=== PATIENT | male | born 1960 | race Caucasian/White ===

== ENCOUNTER 2021-04-18 11:19 | Inpatient (IN) | payer MEDICARE, OTHER ==
[2021-04-18] MEDS ORDERED: ASPIRIN 81 MG PO STA (11:52)
--- NOTE | 2021-04-18 12:16 | XR ---
EXAMINATION TYPE: XR chest 2V DATE OF EXAM: 04/18/2021 COMPARISON: NONE HISTORY: Chest pain for one week. TECHNIQUE: Frontal and lateral views of the chest are obtained. FINDINGS: There is no focal air space opacity, pleural effusion, or pneumothorax seen. The cardiac silhouette size is within normal limits. The osseous structures are intact. IMPRESSION: No acute cardiopulmonary process.
[2021-04-18 12:38] LABS: Basophils % (A) 1 %; Eosinophils # (A) 0.1 k/uL (0-0.7); Eosinophils % (A) 1 %; HCT 46.5 % (39.0-53.0); Lymphocytes # (A) 0.9 k/uL (1.0-4.8); Lymphocytes % (A) 14 %; MCH 30.8 pg (25.0-35.0); MCHC 34.4 g/dL (31.0-37.0); MCV 89.5 fL (80.0-100.0); Mean Platelet Volume 6.4; Monocytes # (A) 0.5 k/uL (0-1.0); Monocytes % (A) 8 %; Neutrophils # (A) 4.7 k/uL (1.3-7.7); Neutrophils % (A) 75 %; Platelet Count 248 k/uL (150-450); RDW 12.6 % (11.5-15.5); WBC 6.3 k/uL (3.8-10.6)
[2021-04-18 12:55] LABS: ALT 36 U/L (4-49); AST 42 U/L (17-59); African American GFR (CKD) >90 (>60 ml/min/1.73 sqM); Albumin 4.2 g/dL (3.5-5.0); Alkaline Phosphatase 84 U/L (38-126); Anion Gap 7 mmol/L; Blood Urea Nitrogen 18 mg/dL (9-20); Calcium 9.4 mg/dL (8.4-10.2); Carbon Dioxide 24 mmol/L (22-30); Chloride 106 mmol/L (98-107); Glucose 96 mg/dL (74-99); Magnesium 2.1 mg/dL (1.6-2.3); Non-African American GFR(CKD) 81 (>60 ml/min/1.73 sqM); Potassium 4.4 mmol/L (3.5-5.1); Sodium 137 mmol/L (137-145); Total Bilirubin 0.6 mg/dL (0.2-1.3); Total Protein 7.1 g/dL (6.3-8.2)
--- NOTE | 2021-04-18 13:00 | ED ---
Chest Pain HPI <Chirag James - Last Filed: 04/18/21 13:56> - General Source: patient Mode of arrival: wheelchair <Tasia Florez - Last Filed: 04/18/21 14:53> - General Chief Complaint: Chest Pain Stated Complaint: chest pain Time Seen by Provider: 04/18/21 11:46 - History of Present Illness Initial Comments: Patient is a 60-year-old male with history of osteoarthritis, presenting to the emergency Department with complaints of intermittent chest pain over the past week. He states that it seemed to happen when he was doing some sort of physical activity. He noticed it about one week ago when he was walking his new dog, started having some midsternal chest pressure and pain. It seemed to go away when he went home and rested. It's been happening throughout the week. Today he was playing golf, the first 8 holes he seemed to have increased in chest tightness and pressure again along with some mild shortness of breath so decided to come in for evaluation, and stopped golfing. He denies history of heart disease, does not take any medications. He had a stress test approximately 20 years ago which revealed no acute findings. He denies being a smoker, just occasional alcohol use, no other drug use. He states his father had a heart attack at the age of 60 but then in his 70s from cancer. Patient denies any chest pain at this time, no recent fevers or chills. He states he was tested for covert last week, he had 3 separate tests which were all negative. He denies any abdominal pain, no nausea or vomiting, no heartburn. He has no further complaints at this time. His vital signs are stable upon arrival. (Tasia Florez) - Related Data Home Medications Medication Instructions Recorded Confirmed Naproxen Sodium [Aleve] 220 mg PO BID PRN 04/18/21 04/18/21 Allergies Allergy/AdvReac Type Severity Reaction Status Date / Time No Known Allergies Allergy Verified 04/18/21 12:10 Review of Systems ROS Other: All systems not noted in ROS Statement are negative. <Chirag James - Last Filed: 04/18/21 13:56> ROS Other: All systems not noted in ROS Statement are negative. <Tasia Florez - Last Filed: 04/18/21 14:53> ROS Statement: Those systems with pertinent positive or pertinent negative responses have been documented in the HPI. EKG Findings - EKG Comments: EKG Findings:: Sinus rhythm with fusion complexes, nonspecific ST and T abnormalities, no signs of acute ST segment elevation, although questionable ST depression in leads V5 and V6. Ventricular rate 61, WI interval 134, QT 370. The only previous was from this morning at doctor's office, similar in nature. <Tasia Florez - Last Filed: 04/18/21 14:53> Past Medical History Past Medical History: Osteoarthritis (OA) History of Any Multi-Drug Resistant Organisms: None Reported Past Surgical History: Joint Replacement Additional Past Surgical History / Comment(s): TOTAL RIGHT AND LEFT HIP , GREAT TOE- BILATERAL Past Anesthesia/Blood Transfusion Reactions: No Reported Reaction Past Psychological History: No Psychological Hx Reported Smoking Status: Never smoker Past Alcohol Use History: Occasional Past Drug Use History: None Reported - Past Family History Father Family Medical History: Cancer Additional Family Medical History / Comment(s): LIVER CANCER <Tasia Florez - Last Filed: 04/18/21 14:53> General Exam General appearance: alert, in no apparent distress Respiratory exam: Present: normal lung sounds bilaterally Cardiovascular Exam: Present: regular rate, normal rhythm, normal heart sounds Expanded Peripheral pulses: 2+: Radial (R), Radial (L), Posterior Tibialis (R), Posterior Tibialis (L), Dorsalis Pedis (R), Dorsalis Pedis (L) <Chirag James - Last Filed: 04/18/21 13:56> <Tasia Florez - Last Filed: 04/18/21 14:53> - General Exam Comments Initial Comments: GENERAL: Patient is well-developed and well-nourished. Patient is nontoxic and in no acute distress. HEAD: Atraumatic, normocephalic. EYES: Pupils equal round and reactive to light, extraocular movements intact, sclera anicteric, conjunctiva are normal. Eyelids were unremarkable. ENT: TMs normal, nares patent, oropharynx clear without exudates. Moist mucous membranes. NECK: Normal range of motion, supple without lymphadenopathy or JVD. LUNGS: Unlabored respirations. Breath sounds clear to auscultation bilaterally and equal. No wheezes rales or rhonchi. HEART: Regular rate and rhythm without murmurs, rubs or gallops. ABDOMEN: Soft, nontender, normoactive bowel sounds. No guarding, no rebound. No masses appreciated. : Deferred MUSCULOSKELETAL: Normal extremities with adequate strength and normal range of motion, no pitting or edema. No clubbing or cyanosis. NEUROLOGICAL: Patient is alert and oriented x 3. Motor and sensory are also intact. Cranial nerves II through XII grossly intact. Symmetrical smile. Normal speech, normal gait. PSYCH: Normal mood, normal affect. SKIN: Warm, Dry, normal turgor, no rashes or lesions noted. (Tasia Florez) Course <Chirag James - Last Filed: 04/18/21 13:56> Vital Signs 04/18/21 04/18/21 11:22 12:25 Temperature 97.7 F Pulse Rate 65 63 Respiratory 18 16 Rate Blood Pressure 166/95 141/91 O2 Sat by Pulse 97 97 Oximetry - Reevaluation(s) Reevaluation #1: 04/18/21 13:57 Patient reevaluated and reexamined by myself, Dr. James. Patient resting comfortably in bed, no symptoms at this time. Patient has had mild symptoms of past couple of days, worse today. Patient has chest tightness with exertion. Questionable mild associated dyspnea. EKG with mild ST depression. Troponin mildly elevated. Patient updated on results and plan. Heparin will be started. Cardiology has been paged. (Chirag James) Chest Pain [facility] <Tasia Florez - Last Filed: 04/18/21 14:53> - [facility] Patient is a 60-year-old male presenting with intermittent exertional chest pain over the past week. He was golfing today, made it through 8 holes when he had to stop secondary to chest pain and some mild shortness of breath. His vital signs are stable here, EKG reveals no signs of acute ST segment elevation, although questionable ST depression in leads V5 and V6. No chest pain at this time. Labs are unremarkable except for an elevated troponin at 0.165. Rapid: It is negative. Chest x-ray showed no acute abnormality. Patient will be started on heparin for NSTEMI. I did speak with cardiology, Yoli, who is in agreement with this plan of care and will most likely see the patient in the morning. Patient accepted by Dr. Chapa. Patient is agreeable to this plan of care. Case discussed with Dr. James. (Tasia Florez) Critical Care Time Critical Care Time: Yes Total Critical Care Time: 35 (Chest pain with exertion over the past week, increased today, EKG reveals some mild ST segment depression in lateral leads, troponin is elevated 0.16. Patient will be admitted for an NSTEMI. The patient started on heparin.) <Tasia Florez - Last Filed: 04/18/21 14:53> Disposition <Chirag James - Last Filed: 04/18/21 13:56> Decision Date: 04/18/21 Decision Time: 14:11 <Tasia Florez - Last Filed: 04/18/21 14:53> Clinical Impression: Acute non-ST elevation myocardial infarction (NSTEMI) Disposition: ADMITTED IP TO THIS [facility] Condition: Stable Referrals: Mark Lobato MD [Primary Care Provider] - 1-2 days
[2021-04-18 13:05] LABS: INR 0.9 (<1.2); Prothrombin Time 9.9 sec (9.0-12.0)
[2021-04-18] MEDS ORDERED: HEPARIN SODIUM 1,000 UN/ML (10ML VL) IV ONE ×2 (13:34→19:22)
[2021-04-18] MEDS ORDERED: HEPARIN SODIUM 1,000 UN/ML (10ML VL) IV PRN (13:34)
[2021-04-18] MEDS: HEPARIN SOD,PORK IN 0.45% NACL 25,000 UNIT in 0.45% NACL 1 250ML.BAG IV SCH ×2 (14:01→23:06)
[2021-04-18] MEDS ORDERED: NITROGLYCERIN SL TABS 0.4 MG TAB SUBLINGUAL PRN (14:08)
--- NOTE | 2021-04-18 15:55 | P.HPIM ---
History of Present Illness H&P Date: 04/18/21 This is a 60-year-old male with no significant past medical history that presented to the emergency room with chest pain. Patient said that his pain started a week ago he was mostly exertional and intermittent. Today he was playing golf and noted increased tightness and pressure mostly in the middle of his chest. This was associated with some shortness of breath. No radiation or diaphoresis. Patient was concerned and came to the emergency room for further evaluation. In the ER, 12-lead EKG showed no acute ischemic changes. Initial troponin was elevated at 0.165. Patient denies any cardiac history. No known underlying hypertension or hyperlipidemia. Patient is usually fairly active. He is a nonsmoker. He will be admitted to the hospital for further management. Review of Systems Review of system: 14 points review of systems were obtained and were negative except to what were mentioned in the HPI. Past Medical History Past Medical History: Osteoarthritis (OA) History of Any Multi-Drug Resistant Organisms: None Reported Past Surgical History: Joint Replacement Additional Past Surgical History / Comment(s): TOTAL RIGHT AND LEFT HIP , GREAT TOE- BILATERAL Past Anesthesia/Blood Transfusion Reactions: No Reported Reaction Past Psychological History: No Psychological Hx Reported Smoking Status: Never smoker Past Alcohol Use History: Occasional Past Drug Use History: None Reported - Past Family History Father Family Medical History: Cancer Additional Family Medical History / Comment(s): LIVER CANCER Medications and Allergies Home Medications Medication Instructions Recorded Confirmed Type Naproxen Sodium [Aleve] 220 mg PO BID PRN 04/18/21 04/18/21 History Allergies Allergy/AdvReac Type Severity Reaction Status Date / Time No Known Allergies Allergy Verified 04/18/21 12:10 Physical Exam Vitals: Vital Signs Temp Pulse Resp BP Pulse Ox 04/18/21 12:25 63 16 141/91 97 04/18/21 11:22 97.7 F 65 18 166/95 97 Intake and Output 04/18/21 04/18/21 04/18/21 06:59 14:59 22:59 Other: Weight 90.718 kg General: The patient is awake and alert, in no distress Eye: there is normal conjunctiva bilaterally. Neck: The neck is supple, there is no JVD. Cardiovascular: Normal S1-S2, no S3-S4, no murmurs. Respiratory: Lungs clear to auscultation bilaterally Gastrointestinal: Abdomen is soft, nontender Musculoskeletal: There is no pedal edema. Neurological:. Speech is normal. Skin: Skin is warm and dry Results CBC & Chem 7: 04/18/21 12:17 04/18/21 12:17 Labs: Abnormal Lab Results - Last 24 Hours (Table) 04/18/21 04/18/21 Range/Units 12:17 12:17 Lymphocytes # 0.9 L (1.0-4.8) k/uL Troponin I 0.165 H* (0.000-0.034) ng/mL Assessment and Plan Assessment: 1. Non-ST elevation MT, given full dose aspirin and started on IV heparin drip. I would also start the patient on Lipitor 80 mg daily and metoprolol 25 mg twice a day. Cardiology consulted for further evaluation. Echocardiogram ordered. Continue telemetry monitoring and trend troponin. Will probably need a left heart cath in the morning. 2. Elevated blood pressure with no known history of hypertension, I started the patient on metoprolol. Continue to monitor blood pressure and adjust regimen as needed. 3. Diet-controlled hyperlipidemia, fasting lipid profile in the morning. Today, I reviewed his medication list and lab work results. I updated the patient about his current medical condition.
[2021-04-18] MEDS: ATORVASTATIN 80 MG TAB PO SCH (16:27)
[2021-04-18] MEDS: METOPROLOL TARTRATE 25 MG TAB PO SCH ×2 (16:28→22:14)
[2021-04-18] MEDS: NITROGLYCERIN OINT 1 INCH/GM PACKET TOPICAL SCH ×2 (17:44→23:11)
[2021-04-18] MEDS ORDERED: fentaNYL (PF) 50 MCG/ML 2 ML AMP ONE (18:45)
[2021-04-18] MEDS ORDERED: LIDOCAINE 1% INJ 10MG/ML (20 ML MDV) ONE (18:45)
[2021-04-18] MEDS ORDERED: HEPARIN SODIUM 1,000 UN/ML (10ML VL) ONE (18:45)
[2021-04-18] MEDS ORDERED: VERAPAMIL 2.5 MG/ML 2 ML AMP ONE (18:45)
[2021-04-18] MEDS ORDERED: SODIUM CHLORIDE 0.9% 1,000 ML IV ONE (19:06)
[2021-04-18] MEDS ORDERED: IV FLUID CONTINUATION 900 ML IV ONE (19:08)
--- NOTE | 2021-04-18 19:08 | P.CRDCN ---
History of Present Illness Consult date: 04/18/21 History of present illness: This is a 60-year-old gentleman with family history of ischemic heart disease who comes to the emergency room with complaints of recurrent exertional chest tightness for the last 3 to 4 days. Today he was playing golf and had more severe chest discomfort which he did not go away. Patient came to the emergency room. In the ER. EKG did not show any acute changes. His troponins showed a 10 suggestive of non-STEMI. Patient complaining of indigestion feeling in the epigastric and midsternal area. In view of increasing troponins on ongoing symptoms, patient is advised to have a cardiac cath for definitive diagnosis. No history of previous myocardial infarctions. Moist of hypertension, diabetes, may have borderline hypercholesterolemia. Further recommendations depend upon the findings on the cardiac cath. Patient is explained the risks and benefits of the procedure Review of Systems As per the chart Past Medical History Past Medical History: Osteoarthritis (OA) History of Any Multi-Drug Resistant Organisms: None Reported Past Surgical History: Joint Replacement Additional Past Surgical History / Comment(s): TOTAL RIGHT AND LEFT HIP , GREAT TOE- BILATERAL Past Anesthesia/Blood Transfusion Reactions: No Reported Reaction Additional Past Anesthesia/Blood Transfusion Reaction / Comment(s): NO REACTION WITH BLOOD TRANSFUSION Past Psychological History: No Psychological Hx Reported Smoking Status: Never smoker Past Alcohol Use History: Occasional Past Drug Use History: None Reported - Past Family History Father Family Medical History: Cancer Additional Family Medical History / Comment(s): LIVER CANCER Mother Family Medical History: Congestive Heart Failure (CHF) Additional Family Medical History / Comment(s): SCARLET FEVER-VALVE REPLACEMENT Medications and Allergies Home Medications Medication Instructions Recorded Confirmed Type Naproxen Sodium [Aleve] 220 mg PO BID PRN 04/18/21 04/18/21 History Allergies Allergy/AdvReac Type Severity Reaction Status Date / Time No Known Allergies Allergy Verified 04/18/21 12:10 Physical Exam Vitals: Vital Signs Temp Pulse Pulse Resp BP BP Pulse Ox 04/18/21 16:24 98.1 F 71 16 146/100 96 04/18/21 12:25 63 16 141/91 97 04/18/21 11:22 97.7 F 65 18 166/95 97 Intake and Output 04/18/21 04/18/21 04/18/21 06:59 14:59 22:59 Output Total 300 Balance -300 Output: Urine 300 Other: # Voids 1 Weight 90.718 kg GENERAL EXAM: Patient is alert and oriented and doesn't appear to be in any acute distress HEENT: Normocephalic. Normal reaction of pupils, equal size, normal range of extraocular motion. No erythema or exudates in the throat. NECK: No masses, no nuchal rigidity. CHEST: No chest wall deformity. LUNGS: Equal air entry with no crackles or wheeze. HEART: S1 and S2 normal with no audible mumurs or gallops. Regular rhythm, femorals equal on both sides.. ABDOMEN: No hepatosplenomegaly, normal bowel sounds, no guarding or rigidity. SKIN: No rashes CENTRAL NERVOUS SYSTEM: No focal deficits. EXTREMITIES: No cyanosis, clubbing or edema. Results 04/18/21 12:17 04/18/21 12:17 Cardiac Enzymes 04/18/21 04/18/21 04/18/21 Range/Units 12:17 12:17 15:25 AST 42 (17-59) U/L Troponin I 0.165 H* 0.759 H* (0.000-0.034) ng/mL 04/18/21 Range/Units 18:11 AST (17-59) U/L Troponin I 1.580 H* (0.000-0.034) ng/mL Coagulation 04/18/21 04/18/21 Range/Units 12:17 18:11 PT 9.9 (9.0-12.0) sec APTT 24.0 45.8 H (22.0-30.0) sec CBC 04/18/21 Range/Units 12:17 WBC 6.3 (3.8-10.6) k/uL RBC 5.20 (4.30-5.90) m/uL Hgb 16.0 (13.0-17.5) gm/dL Hct 46.5 (39.0-53.0) % Plt Count 248 (150-450) k/uL Comprehensive Metabolic Panel 04/18/21 Range/Units 12:17 Sodium 137 (137-145) mmol/L Potassium 4.4 (3.5-5.1) mmol/L Chloride 106 (98-107) mmol/L Carbon Dioxide 24 (22-30) mmol/L BUN 18 (9-20) mg/dL Creatinine 0.99 (0.66-1.25) mg/dL Glucose 96 (74-99) mg/dL Calcium 9.4 (8.4-10.2) mg/dL AST 42 (17-59) U/L ALT 36 (4-49) U/L Alkaline Phosphatase 84 (38-126) U/L Total Protein 7.1 (6.3-8.2) g/dL Albumin 4.2 (3.5-5.0) g/dL Current Medications Generic Name Dose Route Start Last Admin Trade Name Freq PRN Reason Stop Dose Admin Aspirin 325 mg 04/19/21 09:00 Aspirin 325 Mg Tab PO DAILY EDVIN Atorvastatin Calcium 80 mg 04/18/21 15:45 04/18/21 16:27 Atorvastatin 80 Mg Tab PO 80 mg DAILY EDVIN Administration Heparin Sodium (Porcine) 0 unit 04/18/21 13:34 Heparin Sodium 1,000 Un/Ml (10ml Vl) IV PER PROTOCOL PRN Low PTT Protocol Heparin Sodium/Sodium Chloride 250 mls @ 9.997 mls/hr 04/18/21 13:45 04/18/21 14:01 25,000 unit/ Sodium Chloride IV 11.02 units/kg/hr .Q24H EDVIN 9.997 mls/hr Administration Protocol 11.02 UNITS/KG/HR Metoprolol Tartrate 25 mg 04/18/21 15:45 04/18/21 16:28 Metoprolol Tartrate 25 Mg Tab PO 25 mg BID EDVIN Administration Nitroglycerin 0.4 mg 04/18/21 14:08 Nitroglycerin Sl Tabs 0.4 Mg Tab SUBLINGUAL Q5M PRN Chest Pain Nitroglycerin 1 inch 04/18/21 18:00 04/18/21 17:44 Nitroglycerin Oint 1 Inch/Gm Packet TOPICAL 1 inch Q6HR EDVIN Administration Intake and Output 04/18/21 04/18/21 04/18/21 06:59 14:59 22:59 Output Total 300 Balance -300 Output: Urine 300 Other: # Voids 1 Weight 90.718 kg Patient Weight 04/19/21 06:59 Weight 90.718 kg 04/18/21 12:17 04/18/21 12:17 EKG Interpretations (text) Sinus rhythm Assessment and Plan (1) Acute non-ST elevation myocardial infarction (NSTEMI) Current Visit: Yes Status: Acute Code(s): I21.4 - NON-ST ELEVATION (NSTEMI) MYOCARDIAL INFARCTION SNOMED Code(s): 783618855 Plan: Continue with beta blockers, nitrates, aspirin and heparin. Echocardiogram is already done. Proceed with cardiac catheterization for definitive diagnosis and further intervention as needed
[2021-04-18] MEDS: fentaNYL (PF) 50 MCG/ML 2 ML AMP IV ONE ×2 (19:10→19:23)
[2021-04-18] MEDS: MIDAZOLAM 2 MG/2 ML VIAL IV ONE ×2 (19:10→19:23)
[2021-04-18] MEDS ORDERED: LIDOCAINE 1% INJ 10MG/ML (20 ML MDV) SQ ONE (19:15)
[2021-04-18] MEDS ORDERED: VERAPAMIL SYRINGE (5 MG/10 ML) INTRAARTER ONE (19:20)
[2021-04-18] MEDS ORDERED: IOPAMIDOL-370 125ML BTL INJ ONE (19:44)
[2021-04-18] MEDS ORDERED: IOPAMIDOL-370 50ML BTL INJ ONE (19:44)
[2021-04-18] MEDS ORDERED: RX INFO: IV CONTRAST WAS GIVEN 1 EACH MISC MISCELLANE PRN (19:47)
--- NOTE | 2021-04-18 19:57 | P.CARDCATH ---
Date of Procedure: 04/18/21 Preoperative Diagnosis: Non-STEMI Postoperative Diagnosis: Critical lesion involving the right and a critical lesion involving the LAD Procedure(s) Performed: Left heart catheterization and left ventriculography Description of Procedure: HISTORY: 60-year-old gentleman with no significant history is admitted to the hospital with recurrent chest pain and positive troponins suggestive of non- STEMI. Patient was going symptoms of indigestion ongoing and he was advised to have a cardiac cath for definitive diagnosis. By the time patient came to the Lab. His symptoms have improved CONSENT:I have discussed the risks, benefits and alternative therapies for the above-mentioned procedure and for both sedation/analgesia as well as necessary blood product administration, if indicated, as they pertain to this patient. The patient has indicated understanding and acceptance of the risks and procedures discussed. PROCEDURE: Patient was brought to the lab in a fasting state. Patient was given some IV sedation. The right groin is infiltrated with lidocaine and right femoral artery was entered using Seldinger technique. A 6-[place] catheter was left in place and selective coronary arteriography and left ventriculography was performed. Patient tolerated the procedure well. Femoral angiogram was performed and Angio-Seal was applied for hemostasis. No immediate complications were noted and patient was transferred to [facility] in a stable condition Conscious Sedation: Versed 2mg Fentanyl 50 g Duration 30minutes HEMODYNAMICS: The aortic pressure is 130/70. Left ventricle end-diastolic pressure is about 15-18 SELECTIVE CORONARY ARTERIOGRAPHY: LEFT MAIN: Mild disease involving the left main which is normal length THE LEFT ANTERIOR DESCENDING CORONARY ARTERY: . This is a fairly caliber vessel giving rise good-sized diagonal branch. The proximal LAD has about 70% lesion. The mid LAD has areas of about 90% lesion 2. There is a good-sized diagonal arising from midportion of the LAD THE LEFT CIRCUMFLEX AND IS CORONARY ARTERY: This is a fair caliber vessel with about 30-40% lesion in the proximal portion. The distal portion is free of any significant occlusive disease. The intermediate coronary artery. This is a moderate in caliber with about 50-60% long lesion in the proximal portion THE RIGHT CORONARY ARTERY: . This is a good caliber vessel with about 95% stenosis in the midportion which seemed to be the culprit vessel LEFT VENTRICULOGRAPHY: . This revealed normal-sized cardiac silhouette with the minimal hypokinesis of the inferobasal segment FINAL IMPRESSION: . 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 The films were reviewed with Dr. Guevara who is on-call shipping and receiving material handler. Because of multiple lesion LAD straddling diagonal branch, it was felt that patient may be better served with bypass surgery to the LAD diagonal and the right. Surgical consult is requested PROGNOSIS: Guarded
[2021-04-18 20:13] LABS: Glucose,Whole Blood 94 mg/dL (75-99)
[2021-04-18] MEDS ORDERED: MELATONIN 5 MG TABLET PO PRN (20:55)
[2021-04-18] MEDS ORDERED: ACETAMINOPHEN TAB 325 MG TAB PO PRN (20:55)
[2021-04-18 23:06] LABS: Appearance,Urine Clear (Clear); Bilirubin,Urine Negative (Negative); Blood,Urine Negative (Negative); Color,Urine Light Yellow; Glucose,Urine (UA) Negative (Negative); Ketones,Urine Negative (Negative); Leukocyte Esterase,Urine Negative (Negative); Nitrite,Urine Negative (Negative); Protein,Urine Negative (Negative); Specific Gravity,Urine 1.039 (1.001-1.035); Urobilinogen,Urine <2.0 mg/dL (<2.0)
[2021-04-19 04:34] LABS: Basophils % (A) 1 %; Eosinophils # (A) 0.1 k/uL (0-0.7); Eosinophils % (A) 2 %; HCT 48.5 % (39.0-53.0); HGB 16.3 gm/dL (13.0-17.5); Lymphocytes # (A) 1.2 k/uL (1.0-4.8); Lymphocytes % (A) 23 %; MCH 31.1 pg (25.0-35.0); MCHC 33.6 g/dL (31.0-37.0); MCV 92.6 fL (80.0-100.0); Mean Platelet Volume 6.7; Monocytes # (A) 0.4 k/uL (0-1.0); Monocytes % (A) 8 %; Neutrophils # (A) 3.3 k/uL (1.3-7.7); Neutrophils % (A) 65 %; Platelet Count 221 k/uL (150-450); RBC 5.24 m/uL (4.30-5.90); RDW 12.9 % (11.5-15.5)
[2021-04-19 04:54] LABS: Partial Thromboplastin Time 34.3 sec (22.0-30.0); Prothrombin Time 10.5 sec (9.0-12.0)
[2021-04-19 04:59] LABS: ALT 31 U/L (4-49); AST 47 U/L (17-59); African American GFR (CKD) >90 (>60 ml/min/1.73 sqM); Albumin 3.7 g/dL (3.5-5.0); Alkaline Phosphatase 68 U/L (38-126); Anion Gap 6 mmol/L; Blood Urea Nitrogen 14 mg/dL (9-20); Carbon Dioxide 22 mmol/L (22-30); Chloride 108 mmol/L (98-107); Glucose 84 mg/dL (74-99); Magnesium 2.2 mg/dL (1.6-2.3); Non-African American GFR(CKD) >90 (>60 ml/min/1.73 sqM); Potassium 4.4 mmol/L (3.5-5.1); Sodium 136 mmol/L (137-145); Total Bilirubin 0.8 mg/dL (0.2-1.3); Total Protein 6.4 g/dL (6.3-8.2)
[2021-04-19] MEDS: NITROGLYCERIN OINT 1 INCH/GM PACKET TOPICAL SCH ×4 (05:12→22:16)
--- NOTE | 2021-04-19 08:48 | US ---
EXAMINATION TYPE: US carotid duplex BILAT DATE OF EXAM: 04/19/2021 COMPARISON: NONE CLINICAL HISTORY: Pre-Op Cardiac Surgery. no stroke history, pre cabg EXAM MEASUREMENTS: RIGHT: Peak Systolic Velocity (PSV) cm/sec ----- Right CCA: 66.8 ----- Right ICA: 67.7 ----- Right ECA: 47.1 ICA/CCA ratio: 1.0 RIGHT: End Diastole cm/sec ----- Right CCA: 19.7 ----- Right ICA: 25.8 ----- Right ECA: 6.8 LEFT: Peak Systolic Velocity (PSV) cm/sec ----- Left CCA: 74.6 ----- Left ICA: 57.1 ----- Left ECA: 46.3 ICA/CCA ratio: 0.8 LEFT: End Diastole cm/sec ----- Left CCA: 19.5 ----- Left ICA: 25.8 ----- Left ECA: 8.7 VERTEBRALS (direction of flow): Right Vertebral: Antegrade Left Vertebral: Antegrade Rhythm: Normal Heterogeneous plaque bilateral bulbs/ICA with no significant stenosis seen Grayscale, color Doppler, spectral Doppler imaging performed of the carotid arteries. Waveform analys is does not show significant stenosis of the internal carotid arteries. IMPRESSION: No hemodynamic significant stenosis of the proximal internal carotid arteries by Doppler criteria, an indirect measurement of carotid stenosis NASCET criteria was used in interpretation of this exam? Criteria for Assigning % of Stenosis / Diameter reduction (Estimation based on the indirect measurements of the internal carotid artery velocities (ICA PSV). 1. Normal (no stenosis)=ICA PSV < 125 cm/s: ratio < 2.0: ICA EDV<40 cm/s. 2. Less than 50% stenosis=ICA PSV < 125 cm/s: ratio < 2.0: ICA EDV<40 cm/s. 3. 50 to 69% stenosis=ICA PSV of 125 to 230 cm/s: ration 2.0 ? 4.0: ICA EDV 40-100 cm/s. 4. Greater than 70% stenosis to near occlusion= ICA PSV > 230 cm/s: ratio > 4.0: ICA EDV > 100 cm/s. 5. Near occlusion= ICA PSV velocities may be low or undetectable: variable ratio and ICA EDV. 6. Total occlusion=unable to detect flow.
[2021-04-19] MEDS ORDERED: ASPIRIN 325 MG TAB PO SCH (09:00)
[2021-04-19] MEDS ORDERED: ASPIRIN 81 MG PO SCH (09:00)
[2021-04-19 09:56] LABS: Chol/HDL Ratio 4.76; Cholesterol 176 mg/dL (0-200); LDL Cholesterol,Calculated 122.2 mg/dL (0.0-131.0)
[2021-04-19] MEDS: METOPROLOL TARTRATE 25 MG TAB PO SCH ×2 (10:11→21:26)
[2021-04-19] MEDS: ATORVASTATIN 80 MG TAB PO SCH (10:12)
[2021-04-19] MEDS: MUPIROCIN 2% OINT 22 GM TUBE NASAL SCH ×2 (10:41→21:27)
--- NOTE | 2021-04-19 11:01 | ECHOF ---
Referral Reason:chest pain MEASUREMENTS -------- HEIGHT: 182.9 cm WEIGHT: 90.7 kg BP: 141/91 RVIDd: 3.2 cm (< 3.3) IVSd: 1.3 cm (0.6 - 1.1) LVIDd: 4.6 cm (3.9 - 5.3) LVPWd: 1.2 cm (0.6 - 1.1) IVSs: 1.5 cm LVIDs: 2.9 cm LVPWs: 1.5 cm LAESV Index (A-L): 25.50 ml/m Ao Diam: 2.7 cm (2.0 - 3.7) AV Cusp: 2.0 cm (1.5 - 2.6) LA Diam: 4.2 cm (2.7 - 3.8) MV EXCURSION: 20.043 mm (> 18.000) MV EF SLOPE: 82 mm/s (70 - 150) EPSS: 0.7 cm MV E Bhupinder: 0.92 m/s MV DecT: 224 ms MV A Bhupinder: 1.08 m/s MV E/A Ratio: 0.86 RAP: 5.00 mmHg RVSP: 26.68 mmHg FINDINGS -------- Sinus rhythm. This was a technically adequate study. The left ventricular size is normal. There is mild concentric left ventricular hypertrophy. Overa ll left ventricular systolic function is normal with, an EF between 55 - 60 %. The diastolic fillin g pattern is normal for the age of the patient 12.94. The right ventricle is normal in size. Normal LA size by volume 22+/-6 ml/m2. The right atrial size is normal. Interatrial and interventricular septum intact. The aortic valve is trileaflet and appears structurally normal. There is no evidence of aortic regu rgitation. There is no evidence of aortic stenosis. Mild mitral regurgitation is present. Mild tricuspid regurgitation present. There is no evidence of pulmonary hypertension. The right v entricular systolic pressure, as measured by Doppler, is 26.68mmHg. Trace/mild (physiologic) pulmonic regurgitation. The aortic root size is normal. IVC Not well visulized. There is no pericardial effusion. CONCLUSIONS -------- 1. The left ventricular size is normal. 2. There is mild concentric left ventricular hypertrophy. 3. Overall left ventricular systolic function is normal with, an EF between 55 - 60 %. 4. The diastolic filling pattern is normal for the age of the patient 12.94 5. Mild mitral regurgitation is present. 6. Mild tricuspid regurgitation present. 7. Trace/mild (physiologic) pulmonic regurgitation. PURE PAK MACHINE OPERATOR: Sara Bedoya RDCS
--- NOTE | 2021-04-19 12:07 | P.PN ---
Subjective Progress Note Date: 04/19/21 No complaints today. Denies chest pain, palps. Denies dyspnea. Plan is for CABG on 04/20 Objective - Vital Signs Vital signs: Vital Signs Temp 98.1 F 04/19/21 10:00 Pulse 62 04/19/21 10:00 Resp 8 L 04/19/21 10:00 BP 136/91 04/19/21 10:00 Pulse Ox 95 04/19/21 10:00 Intake & Output 04/18/21 04/19/21 04/19/21 18:59 06:59 18:59 Intake Total 48.485 341.482 80 Output Total 300 950 300 Balance -251.515 -608.518 -220 Weight 90.718 kg 95.1 kg Intake: IV 280 80 .9 180 80 Intake, IV Titration 48.485 61.482 Amount Heparin Sod,Pork in 0.45% 48.485 61.482 NaCl 25,000 unit In 0.45 % NaCl 1 250ml.bag @ 11. 02 UNITS/KG/HR 9.997 mls/ hr IV .Q24H FOR[facility]LY [facility], 1928–1983 Rx#: [id number] Output: Urine 300 950 300 Other: Voiding Method Urinal Urinal # Voids 1 - Exam Gen: awake, alert HEENT: normocephalic, atraumatic, good hearing acuity, moist mucous membranes Resp: good air exchange, breathing comfortably with no accessory muscle use CVS: good distal perfusion x 4, GI: soft, NTTP, ND : no SPT, no CVAT, montoya catheter not present MSK: no pitting edema, no clubbing Neuro: non-focal, moving all extremities Psych: cooperative, euthymic mood - Labs CBC & Chem 7: 04/19/21 04:18 04/19/21 04:18 Labs: Abnormal Lab Results - Last 24 Hours (Table) 04/18/21 04/18/21 04/18/21 Range/Units 12:17 12:17 15:25 Lymphocytes # 0.9 L (1.0-4.8) k/uL APTT (22.0-30.0) sec Sodium (137-145) mmol/L Chloride (98-107) mmol/L Troponin I 0.165 H* 0.759 H* (0.000-0.034) ng/mL HDL Cholesterol (40.0-60.0) mg/dL Ur Specific [place] (1.001-1.035) 04/18/21 04/18/21 04/18/21 Range/Units 18:11 18:11 21:13 Lymphocytes # (1.0-4.8) k/uL APTT 45.8 H (22.0-30.0) sec Sodium (137-145) mmol/L Chloride (98-107) mmol/L Troponin I 1.580 H* (0.000-0.034) ng/mL HDL Cholesterol (40.0-60.0) mg/dL Ur Specific [place] 1.039 H (1.001-1.035) 04/19/21 04/19/21 04/19/21 Range/Units 04:18 04:18 07:16 Lymphocytes # (1.0-4.8) k/uL APTT 34.3 H (22.0-30.0) sec Sodium 136 L (137-145) mmol/L Chloride 108 H (98-107) mmol/L Troponin I 1.150 H* (0.000-0.034) ng/mL HDL Cholesterol 37.0 L (40.0-60.0) mg/dL Ur Specific [place] (1.001-1.035) Microbiology - Last 24 Hours (Table) 04/18/21 21:33 Nasal Screen MRSA/MSSA - Preliminary Nasal Swab Assessment and Plan Assessment: 1. Non-ST elevation NV, given full dose aspirin and started on IV heparin drip. Started on Lipitor 80 mg daily and metoprolol 25 mg twice a day. Cardiology consulted for further evaluation and pt is now s/p [facility] on 04/18 which showed mu ltivessel disease: 95% RCA prox lesion, mild LM disease, 70% prox LAD and 2 x 90% distal LAD, 40% LCx. Echocardiogram ordered, shows normal EF 55-60%, no WMA, mild MR/TR, no diastolic dysfunction. Continue telemetry monitoring and trend troponin. CT surgery consulted, scheduled for CABG on 04/20. 2. Elevated blood pressure with no known history of hypertension, started the patient on metoprolol. Continue to monitor blood pressure and adjust regimen as needed. 3. Diet-controlled hyperlipidemia, fasting lipid profile in the morning. Today, I reviewed his medication list and lab work results. I updated the patient about his current medical condition.
--- NOTE | 2021-04-19 12:07 | P.PN ---
Subjective This is a pleasant 60-year-old male with no significant past medical history other than his father had coronary artery disease in his 60s. The patient presented to the hospital last night with acute chest pain and was found to have a non-ST elevated myocardial infarction. Cardiac catheterization revealed critical 2 vessel disease involving the RCA and LAD which was deemed complicated with multiple lesions and straddling LAD and diagonal branches. Therefore he was recommended to be evaluated for bypass grafting. He is seen and examined resting comfortably lying flat in bed in no acute distress. He denies symptoms of chest discomfort, shortness of breath, dizziness or palpitations. He states at times he does feel a burning sensation in the epigastric region but is unsure if this is related to reflux or chest discomfort. He did refuse Nitropaste this morning as a cost a pretty significant headache. Blood pressure 136/91 heart rate 62 afebrile maintaining oxygen saturation on room air. Laboratory data reviewed, CBC unremarkable, sodium 136, potassium 4.4, creatinine 0.88, LDL 122, HDL 37 and TSH 3.55. Echocardiogram obtained revealed preserved LV systolic function with ejection fraction 55-60%, normal diastolic filling pattern, mild MR and mild TR. GENERAL: Well-appearing, well-nourished and in no acute distress. NECK: Supple without JVD or thyromegaly. LUNGS: Breath sounds clear to auscultation bilaterally. Respiration equal and unlabored. No wheezes, rales or rhonchi. HEART: Regular rate and rhythm without murmurs, rubs or gallops. S1 and S2 heard. EXTREMITIES: Normal range of motion, no edema. No clubbing or cyanosis. Peripheral pulses intact. ASSESSMENT NSTEMI Dyslipidemia Coronary artery disease PLAN Continue heparin infusion pending CT surgery's recommendations. Decrease aspirin to 81 mg daily. Encourage the use of an incentive spirometer. Further recommendations to follow based upon clinical course. Nurse Practitioner note has been reviewed, I agree with a documented findings and plan of care. Patient was seen and examined. Objective - Vital Signs Vital signs: Vital Signs Temp 98.3 F 04/19/21 04:00 Pulse 60 04/19/21 07:00 Resp 16 04/19/21 07:00 BP 114/78 04/19/21 07:00 Pulse Ox 97 04/19/21 07:00 Intake & Output 04/18/21 04/19/21 04/19/21 18:59 06:59 18:59 Intake Total 48.485 341.482 20 Output Total 300 950 0 Balance -251.515 -608.518 20 Weight 90.718 kg 95.1 kg Intake: IV 280 20 .9 180 20 Intake, IV Titration 48.485 61.482 Amount Heparin Sod,Pork in 0.45% 48.485 61.482 NaCl 25,000 unit In 0.45 % NaCl 1 250ml.bag @ 11. 02 UNITS/KG/HR 9.997 mls/ hr IV .Q24H ON LICENSE OF [facility] Rx#: [id number] Output: Urine 300 950 0 Other: Voiding Method Urinal # Voids 1 - Labs CBC & Chem 7: 04/19/21 04:18 04/19/21 04:18 Labs: Abnormal Lab Results - Last 24 Hours (Table) 04/18/21 04/18/21 04/18/21 Range/Units 12:17 12:17 15:25 Lymphocytes # 0.9 L (1.0-4.8) k/uL APTT (22.0-30.0) sec Sodium (137-145) mmol/L Chloride (98-107) mmol/L Troponin I 0.165 H* 0.759 H* (0.000-0.034) ng/mL Ur Specific [place] (1.001-1.035) 04/18/21 04/18/21 04/18/21 Range/Units 18:11 18:11 21:13 Lymphocytes # (1.0-4.8) k/uL APTT 45.8 H (22.0-30.0) sec Sodium (137-145) mmol/L Chloride (98-107) mmol/L Troponin I 1.580 H* (0.000-0.034) ng/mL Ur Specific [place] 1.039 H (1.001-1.035) 04/19/21 04/19/21 Range/Units 04:18 04:18 Lymphocytes # (1.0-4.8) k/uL APTT 34.3 H (22.0-30.0) sec Sodium 136 L (137-145) mmol/L Chloride 108 H (98-107) mmol/L Troponin I (0.000-0.034) ng/mL Ur Specific [place] (1.001-1.035) [facility] - Last 24 Hours (Table) 04/18/21 21:33 Nasal Screen MRSA/MSSA - Preliminary Nasal Swab
[2021-04-19] MEDS ORDERED: MD COMMUNICATION TO PHARMACY 1 EACH MISC PO ONE ×4 (13:45→13:48)
--- NOTE | 2021-04-19 14:52 | P.GSCN ---
History of Present Illness Consult date: 04/19/21 Reason for Consult: Symptomatic multivessel coronary artery disease, non-ST elevated myocardial infarction this admission. Evaluation for myocardial revascularization surgery. Requesting physician: Chi Hernandez History of present illness: This is a 60-year-old gentleman who follows with Dr. Mark Lobato on an outpatient basis for his primary care service. The patient reports that he has not seen his primary care doctor in a few years. His past medical history significant for untreated hyperlipidemia, chronic lower back pain, osteoarthritis with bilateral hip replacements, difficulty swallowing, early onset coronary artery disease with his grandmother having a myocardial infarction at age 60 and a remote history of atrial fibrillation. He is a lifetime nonsmoker. The patient presented to the emergency department here at [facility] yesterday 04/18/2021 as he developed some burning type chest pain while golfing. He denies any shortness of breath, diaphoresis, presyncope, syncope, fever, chills, nausea, vomiting, palpitations or orthopnea. The patient does report that he has been having these episodes of burning-type chest pain off and on for the last week or so. A 12-lead EKG was completed which showed no acute ischemic changes. He did have serial troponins which were positive and as high as 1.580. He also underwent a Coronavirus PCR test which showed not detected. The patient reports that he has been vaccinated for COVID-19 with 2 doses of the Pfizer vaccine. A transthoracic 2-D echocardiogram was completed which showed an overall left ventricular systolic function to be normal with an ejection fraction between 55 and 60%, no evidence of aortic valve regurgitation, mild mitral valve regurgitation, mild tricuspid valve regurgitation and trace to mild pulmonic valve regurgitation. Due to the patient's presenting symptoms and positive troponins a consult was placed to Dr. Hernandez from cardiology and subsequently the patient underwent a cardiac catheterization which demonstrated a 70% stenosis to his proximal left anterior descending coronary artery, a 90% stenosis to his mid left anterior descending coronary artery, a 30-40% stenosis to his proximal circumflex coronary artery, a 50-60% stenosis to his intermediate coronary artery and a 95% stenosis in the midportion of his right coronary artery. Also during heart catheterization a left ventriculography was completed which showed a normal size cardiac silhouette with minimal hypokinesis of the inferior basal segment. The findings on the heart catheterization was discussed with the patient and a consult was placed to Dr. Tammi Obregon from cardiothoracic surgery for further evaluation and treatment recommendations including myocardial revascularization surgery. Review of Systems A 14 point review of systems was completed and was negative except as mentioned in the HPI. Past Medical History Past Medical History: Atrial Fibrillation, Hyperlipidemia, Osteoarthritis (OA) Additional Past Medical History / Comment(s): Chronic lower back pain History of Any Multi-Drug Resistant Organisms: None Reported Past Surgical History: Joint Replacement Additional Past Surgical History / Comment(s): TOTAL RIGHT AND LEFT HIP , GREAT TOE- BILATERAL SURGERY, and vasectomy. Past Anesthesia/Blood Transfusion Reactions: No Reported Reaction Additional Past Anesthesia/Blood Transfusion Reaction / Comm: NO REACTION WITH BLOOD TRANSFUSION Past Psychological History: No Psychological Hx Reported Smoking Status: Never smoker Past Alcohol Use History: Occasional Past Drug Use History: None Reported - Past Family History Father Family Medical History: Cancer, Myocardial Infarction ([place]) Additional Family Medical History / Comment(s): LIVER CANCER Mother Family Medical History: Congestive Heart Failure (CHF), CVA/TIA Additional Family Medical History / Comment(s): Rheumatic fever-VALVE REPLACEMENT Medications and Allergies Home Medications Medication Instructions Recorded Confirmed Type Naproxen Sodium [Aleve] 220 mg PO BID PRN 04/18/21 04/18/21 History Allergies Allergy/AdvReac Type Severity Reaction Status Date / Time No Known Allergies Allergy Verified 04/18/21 12:10 Surgical - Exam Vital Signs Temp Pulse Resp BP Pulse Ox 97.7 F 65 18 166/95 97 04/18/21 11:22 04/18/21 11:22 04/18/21 11:22 04/18/21 11:22 04/18/21 11:22 - General well developed, well nourished, no distress, no pain, obese - Eyes PERRL, normal ocular movement, no pale, no icteric - ENT normal pinna, normal nares, normal mucosa, no hearing loss, decreased hearing - Neck Neck is supple, no lymphadenopathy. no masses, no bruits, trachea midline, no venous distension - Respiratory Lung sounds essentially clear throughout. Respirations are symmetrical and nonlabored. No wheezes, rhonchi or crackles. - Cardiovascular Regular rhythm and rate. S1 and S2 present, negative for S3, gallop or murmur. No edema present. Bedside telemetry showing normal sinus rhythm. - Abdomen Abdomen soft, nontender and nondistended. Active bowel sounds present all 4 abdominal quadrants. No guarding or rigidity. No organomegaly appreciated. - Genitourinary Deferred - Rectum Deferred - Integumentary no rash, no growths, no abnormal pigmentation - Neurologic Cranial nerves II through XII intact. No focal deficits. - Musculoskeletal normal gait, normal posture - Psychiatric oriented to time, oriented to person, oriented to place, speech is normal, memory intact Results - Labs 04/19/21 04:18 04/19/21 04:18 Abnormal Lab Results - Last 24 Hours (Table) 04/18/21 04/18/21 04/18/21 Range/Units 15:25 18:11 18:11 APTT 45.8 H (22.0-30.0) sec Sodium (137-145) mmol/L Chloride (98-107) mmol/L Troponin I 0.759 H* 1.580 H* (0.000-0.034) ng/mL HDL Cholesterol (40.0-60.0) mg/dL Ur Specific [place] (1.001-1.035) 04/18/21 04/19/21 04/19/21 Range/Units 21:13 04:18 04:18 APTT 34.3 H (22.0-30.0) sec Sodium 136 L (137-145) mmol/L Chloride 108 H (98-107) mmol/L Troponin I (0.000-0.034) ng/mL HDL Cholesterol 37.0 L (40.0-60.0) mg/dL Ur Specific [place] 1.039 H (1.001-1.035) 04/19/21 04/19/21 Range/Units 07:16 11:52 APTT 67.0 H (22.0-30.0) sec Sodium (137-145) mmol/L Chloride (98-107) mmol/L Troponin I 1.150 H* (0.000-0.034) ng/mL HDL Cholesterol (40.0-60.0) mg/dL Ur Specific [place] (1.001-1.035) Microbiology - Last 24 Hours (Table) 04/18/21 21:33 Nasal Screen MRSA/MSSA - Preliminary Nasal Swab Diabetes panel 04/19/21 Range/Units 04:18 Sodium 136 L (137-145) mmol/L Potassium 4.4 (3.5-5.1) mmol/L Chloride 108 H (98-107) mmol/L Carbon Dioxide 22 (22-30) mmol/L BUN 14 (9-20) mg/dL Creatinine 0.88 (0.66-1.25) mg/dL Glucose 84 (74-99) mg/dL Calcium 9.0 (8.4-10.2) mg/dL AST 47 (17-59) U/L ALT 31 (4-49) U/L Alkaline Phosphatase 68 (38-126) U/L Total Protein 6.4 (6.3-8.2) g/dL Albumin 3.7 (3.5-5.0) g/dL Triglycerides 84.0 (0.0-149.0) mg/dL HDL Cholesterol 37.0 L (40.0-60.0) mg/dL Thyroid panel 04/19/21 Range/Units 04:18 TSH 3.550 (0.465-4.680) mIU/L Calcium panel 04/19/21 Range/Units 04:18 Calcium 9.0 (8.4-10.2) mg/dL Albumin 3.7 (3.5-5.0) g/dL Pituitary panel 04/19/21 Range/Units 04:18 Sodium 136 L (137-145) mmol/L Potassium 4.4 (3.5-5.1) mmol/L Chloride 108 H (98-107) mmol/L Carbon Dioxide 22 (22-30) mmol/L BUN 14 (9-20) mg/dL Creatinine 0.88 (0.66-1.25) mg/dL Glucose 84 (74-99) mg/dL Calcium 9.0 (8.4-10.2) mg/dL TSH 3.550 (0.465-4.680) mIU/L Adrenal panel 04/19/21 Range/Units 04:18 Sodium 136 L (137-145) mmol/L Potassium 4.4 (3.5-5.1) mmol/L Chloride 108 H (98-107) mmol/L Carbon Dioxide 22 (22-30) mmol/L BUN 14 (9-20) mg/dL Creatinine 0.88 (0.66-1.25) mg/dL Glucose 84 (74-99) mg/dL Calcium 9.0 (8.4-10.2) mg/dL Total Bilirubin 0.8 (0.2-1.3) mg/dL AST 47 (17-59) U/L ALT 31 (4-49) U/L Alkaline Phosphatase 68 (38-126) U/L Total Protein 6.4 (6.3-8.2) g/dL Albumin 3.7 (3.5-5.0) g/dL - Imaging Chest x-ray: report reviewed, image reviewed EKG: image reviewed Additional studies: Carotid duplex study reviewed. Transthoracic 2-D echocardiogram and cardiac catheterization films were reviewed by Dr. Mitchell Biggs. Assessment and Plan Assessment: 1. Symptomatic multivessel coronary artery disease 2. Non-ST elevated myocardial infarction this admission 3. Hyperlipidemia 4. History of difficulty with swallowing 5. Osteoarthritis 6. Remote history of atrial fibrillation 7. Vaccinated for COVID-19 with Pfizer, recent COVID-19 PCR showed not detected 8. Family history of early onset coronary artery disease with his grandmother having a myocardial infarction at age 60 9. Lifetime nonsmoker, recent FEV1 showed a predicted value of 79% Plan: The patient was seen and examined at his bedside in the intensive care unit. He was also seen by Dr. Mitchell Biggs from cardiothoracic surgery. His chart and diagnostics were reviewed. Preoperative testing and preoperative teaching has been initiated. Dr. Mitchell Biggs discussed with the patient the findings on his cardiac catheterization and transthoracic 2-D echocardiogram films. Risks and benefits of myocardial revascularization surgery discussed with the patient, treatment options discussed with the patient. Knowing and understanding the risks the patient wishes to proceed with the surgical option. An STS risk score was calculated discussed with the patient. A 5 m walk test was completed with the patient which showed time 1: 2.90 seconds, time 2: 2.88 seconds and time 3: 2.97 seconds. The patient will be scheduled for myocardial revascularization surgery with left internal mammary artery, endoscopic harvesting of the left radial artery, endoscopic vein harvest, exclusion of the left atrial appendage and intraoperative transesophageal echocardiogram. The surgery will be performed by Dr. Tammi Obregon and is scheduled for Sunday04/20/2021. Continue optimize medical management with aspirin, statin and beta samantha. Medical management and other comorbidities per primary care service. Dr. Franklin from pulmonary medicine has been consulted for preoperative and postoperative pulmonary management. More recommendations to follow based on patient's clinical course. Thank you Dr. Hernandez for this consult and we will look forward to working with you in the care of this patient. Time with Patient: Greater than 30
[2021-04-19 15:03] LABS: Hemoglobin A1C 5.3 % (4.0-6.0)
[2021-04-19] MEDS: HEPARIN SOD,PORK IN 0.45% NACL 25,000 UNIT in 0.45% NACL 1 250ML.BAG IV SCH (16:23)
[2021-04-19 22:45] LABS: Hepatitis A Antibody IgM Non-Reactive (Non-Reactive); Hepatitis B Core IgM Non-Reactive (Non-Reactive); Hepatitis B Surface Antigen Non-Reactive (Non-Reactive); Hepatitis C IgG Antibody Non-Reactive (Non-Reactive)
[2021-04-20] MEDS ORDERED: MAGNESIUM SULFATE SYG 4.06 MEQ/ML SYRINGE IV ONE (05:00)
[2021-04-20] MEDS ORDERED: HEPARIN SODIUM,PORCINE 5,000 UNIT in SODIUM CHLORIDE 0.9% 500 ML 500 ML IV ONE (05:00)
[2021-04-20] MEDS ORDERED: ALBUMIN HUMAN 25% 50 ML in EMPTY BAG 1 BAG IVPB ONE (05:00)
[2021-04-20] MEDS ORDERED: ELECTROLYTE-A SOLUTION 1,000 ML with POTASSIUM CHLORIDE 40 MEQ, MAGNESIUM SULFATE 16 ME... IV SCH ×5 (05:00)
[2021-04-20] MEDS ORDERED: CLEVIDIPINE BUTYRATE 25 MG in EMPTY BAG 1 BAG IV SCH ×2 (05:00→16:24)
[2021-04-20] MEDS ORDERED: INSULIN REGULAR 100 UNIT in SODIUM CHLORIDE 0.9% 100 ML IV SCH ×2 (05:00→17:00)
[2021-04-20] MEDS ORDERED: PROTAMINE SULFATE 10 MG/ML 25 ML VIAL IV ONE (05:00)
[2021-04-20] MEDS ORDERED: PAPAVERINE 360 MG in SODIUM CHLORIDE 0.9% 90 ML IV ONE (05:00)
[2021-04-20] MEDS ORDERED: HEPARIN SODIUM 1,000 UN/ML (10ML VL) IV ONE (05:00)
[2021-04-20] MEDS ORDERED: MANNITOL 25% 12.5 GM/50 ML VIAL IV ONE ×2 (05:00)
[2021-04-20] MEDS ORDERED: CHLORHEXIDINE GLUCONATE 15 ML CUP MUCOUS MEM ONE (05:00)
[2021-04-20] MEDS ORDERED: ALBUMIN HUMAN 5% 500 ML in EMPTY BAG 1 BAG IVPB ONE ×6 (05:00)
[2021-04-20] MEDS ORDERED: METOPROLOL TARTRATE 12.5 MG TAB PO ONE (05:00)
[2021-04-20] MEDS ORDERED: PROTAMINE SULFATE 250 MG in EMPTY BAG 1 BAG IV ONE (05:00)
[2021-04-20] MEDS ORDERED: DILTIAZEM 125 MG in SODIUM CHLORIDE 0.9% 100 ML IV SCH (05:00)
[2021-04-20] MEDS ORDERED: ELECTROLYTE-A SOLUTION 1,000 ML with POTASSIUM CHLORIDE 100 MEQ, MAGNESIUM SULFATE 16 M... IV SCH ×5 (05:00)
[2021-04-20] MEDS ORDERED: PHENYLEPHRINE 40 MG in SODIUM CHLORIDE 0.9% 250 ML IV ONE (05:00)
[2021-04-20] MEDS ORDERED: TRANEXAMIC ACID 2,000 MG in SODIUM CHLORIDE 0.9% 80 ML IV ONE (05:00)
[2021-04-20] MEDS ORDERED: NOREPINEPHRINE 4 MG in SODIUM CHLORIDE 0.9% 250 ML IV SCH (05:00)
[2021-04-20] MEDS ORDERED: ASPIRIN 81 MG PO ONE (05:00)
[2021-04-20] MEDS ORDERED: NITROGLYCERIN-D5W PMX 25 MG/250 ML BTL IV ONE (05:00)
[2021-04-20] MEDS ORDERED: PHENYLEPHRINE 10 MG/ML VIAL IV ONE (05:00)
[2021-04-20] MEDS ORDERED: SODIUM BICARB 8.4% 50 ML SYR (1 MEQ/ML) IV ONE (05:00)
[2021-04-20] MEDS ORDERED: CALCIUM CHLORIDE 100 MG/ML 10 ML SYRINGE IVP ONE (05:00)
[2021-04-20] MEDS ORDERED: NITROGLYCERIN-D5W PMX 50 MG in DEXTROSE/WATER 1 250ML.BAG IV SCH ×2 (05:00→17:00)
[2021-04-20] MEDS ORDERED: ATORVASTATIN 10 MG TAB PO ONE (05:00)
[2021-04-20 08:29] LABS: ABG HCO3 28 mmol/L (21-25); ABG PCO2 49 mmHg (35-45); ABG PH 7.36 (7.35-7.45); ABG PO2 105 mmHg (83-108); ABG TCO2 29 mmol/L (19-24)
[2021-04-20] MEDS ORDERED: HEPARIN SODIUM,PORCINE 10,000 UNIT/ML 1 ML VIAL ONE (08:40)
[2021-04-20] MEDS ORDERED: LIDOCAINE 2% SYG (PF) 100 MG/5 ML ONE (08:40)
[2021-04-20] MEDS ORDERED: TRANEXAMIC ACID 1,000 MG/10 ML VIAL ONE (08:40)
[2021-04-20] MEDS ORDERED: NITROGLYCERIN-D5W PMX 50 MG/250 ML BOTTLE IV ONE (08:40)
[2021-04-20] MEDS ORDERED: PHENYLEPHRINE-0.9% NACL SYG 1,000 MCG/10 ML SYRINGE ONE (08:40)
[2021-04-20] MEDS ORDERED: GLYCOPYRROLATE 0.2 MG/ML 2 ML VIAL ONE (08:40)
[2021-04-20] MEDS ORDERED: SODIUM CHLORIDE 0.9% 250 ML BAG ONE (08:40)
[2021-04-20] MEDS ORDERED: MIDAZOLAM 2 MG/2 ML VIAL ONE (08:40)
[2021-04-20] MEDS ORDERED: fentaNYL (PF) 50 MCG/ML 50 ML VIAL ONE (08:40)
[2021-04-20] MEDS ORDERED: PROPOFOL 10 MG/ML 20 ML VIAL IV ONE (08:40)
[2021-04-20] MEDS ORDERED: ELECTROLYTE-R (PH 7.4) 1,000 ML IV.SOLN IV ONE (08:40)
[2021-04-20] MEDS ORDERED: VECURONIUM 10 MG VIAL IV ONE (08:40)
[2021-04-20] MEDS ORDERED: SUCCINYLCHOLINE CHLORIDE 100 MG/5 ML SYR IV ONE (08:40)
[2021-04-20] MEDS ORDERED: ePHEDrine SULFATE/0.9% NACL/PF 50 MG/5 ML SYRINGE IV ONE (08:40)
[2021-04-20] MEDS ORDERED: MAGNESIUM SULFATE 4 MEQ/ML 10ML VIAL ONE (08:40)
[2021-04-20 09:23] LABS: ABG Base Excess 0.8 mmol/L; ABG Glucose Whole Blood 96 mg/dL (75-99); ABG HCO3 26 mmol/L (21-25); ABG Hematocrit 50 % (34.0-46.0); ABG Ionized Calcium 4.8 mg/dL (4.5-5.3); ABG PCO2 42 mmHg (35-45); ABG PO2 277 mmHg (83-108); ABG Potassium Whole Blood 4.6 mmol/L (3.4-4.5); ABG Sodium Whole Blood 140 mmol/L (135-146); ABG TCO2 27 mmol/L (19-24)
[2021-04-20] MEDS: ceFAZolin 1,000 MG in SODIUM CHLORIDE 0.9% IRRIGATIO 1,000 ML IRRIGATION ONE ×2 (10:36→15:42)
[2021-04-20 11:34] LABS: ABG Base Excess -0.5 mmol/L; ABG Glucose Whole Blood 112 mg/dL (75-99); ABG HCO3 25 mmol/L (21-25); ABG Hematocrit 45 % (34.0-46.0); ABG Ionized Calcium 4.8 mg/dL (4.5-5.3); ABG Lactic Acid Whole Blood 1.1 mmol/L (0.5-1.6); ABG Oxygen Saturation 99.3 % (94-97); ABG PCO2 42 mmHg (35-45); ABG PH 7.38 (7.35-7.45); ABG PO2 137 mmHg (83-108); ABG Potassium Whole Blood 4.2 mmol/L (3.4-4.5); ABG Sodium Whole Blood 139 mmol/L (135-146); ABG TCO2 26 mmol/L (19-24)
[2021-04-20 12:50] LABS: ABG Base Excess -1.7 mmol/L; ABG Glucose Whole Blood 110 mg/dL (75-99); ABG HCO3 24 mmol/L (21-25); ABG Hematocrit 36 % (34.0-46.0); ABG Ionized Calcium 4.1 mg/dL (4.5-5.3); ABG Lactic Acid Whole Blood 1.4 mmol/L (0.5-1.6); ABG PCO2 44 mmHg (35-45); ABG PH 7.35 (7.35-7.45); ABG Potassium Whole Blood 4.2 mmol/L (3.4-4.5); ABG Sodium Whole Blood 135 mmol/L (135-146); ABG TCO2 25 mmol/L (19-24)
[2021-04-20 13:26] LABS: ABG Base Excess -0.4 mmol/L; ABG Glucose Whole Blood 110 mg/dL (75-99); ABG HCO3 24 mmol/L (21-25); ABG Hematocrit 35 % (34.0-46.0); ABG Ionized Calcium 4.1 mg/dL (4.5-5.3); ABG Lactic Acid Whole Blood 1.6 mmol/L (0.5-1.6); ABG PCO2 37 mmHg (35-45); ABG PH 7.42 (7.35-7.45); ABG PO2 297 mmHg (83-108); ABG Potassium Whole Blood 5.2 mmol/L (3.4-4.5); ABG Sodium Whole Blood 137 mmol/L (135-146); ABG TCO2 25 mmol/L (19-24)
[2021-04-20 14:06] LABS: ABG Base Excess 0.1 mmol/L; ABG Glucose Whole Blood 111 mg/dL (75-99); ABG HCO3 25 mmol/L (21-25); ABG Hematocrit 33 % (34.0-46.0); ABG Ionized Calcium 4.1 mg/dL (4.5-5.3); ABG Lactic Acid Whole Blood 1.6 mmol/L (0.5-1.6); ABG PCO2 38 mmHg (35-45); ABG PH 7.42 (7.35-7.45); ABG PO2 418 mmHg (83-108); ABG Potassium Whole Blood 5.2 mmol/L (3.4-4.5); ABG Sodium Whole Blood 138 mmol/L (135-146); ABG TCO2 26 mmol/L (19-24)
[2021-04-20 14:40] LABS: ABG Glucose Whole Blood 113 mg/dL (75-99); ABG HCO3 25 mmol/L (21-25); ABG Hematocrit 35 % (34.0-46.0); ABG Ionized Calcium 4.1 mg/dL (4.5-5.3); ABG Lactic Acid Whole Blood 1.6 mmol/L (0.5-1.6); ABG PCO2 43 mmHg (35-45); ABG PH 7.38 (7.35-7.45); ABG PO2 319 mmHg (83-108); ABG Potassium Whole Blood 5.1 mmol/L (3.4-4.5); ABG Sodium Whole Blood 138 mmol/L (135-146); ABG TCO2 27 mmol/L (19-24)
[2021-04-20] MEDS ORDERED: ALBUMIN HUMAN 5% 250 ML IVPB ONE ×2 (15:25→16:12)
[2021-04-20 16:00] LABS: ABG Base Excess -0.9 mmol/L; ABG Glucose Whole Blood 109 mg/dL (75-99); ABG HCO3 24 mmol/L (21-25); ABG Hematocrit 32 % (34.0-46.0); ABG Ionized Calcium 4.2 mg/dL (4.5-5.3); ABG Lactic Acid Whole Blood 1.7 mmol/L (0.5-1.6); ABG Oxygen Saturation 98.6 % (94-97); ABG PCO2 41 mmHg (35-45); ABG PH 7.38 (7.35-7.45); ABG PO2 106 mmHg (83-108); ABG Potassium Whole Blood 3.9 mmol/L (3.4-4.5); ABG Sodium Whole Blood 140 mmol/L (135-146); ABG TCO2 26 mmol/L (19-24)
[2021-04-20 16:10] LABS: ABG PO2 >420 mmHg (83-108)
[2021-04-20] MEDS ORDERED: IPRATROPIUM-ALBUTEROL 3 ML NEB INHALATION PRN (16:24)
[2021-04-20] MEDS ORDERED: AMIODARONE 450 MG in DEXTROSE 5% IN WATER 250 ML IV PRN ×2 (16:24)
[2021-04-20] MEDS ORDERED: ALBUMIN HUMAN 5% 250 ML in EMPTY BAG 1 BAG IVPB PRN (16:24)
[2021-04-20] MEDS ORDERED: Phosphorus Replacement Protoco 1 EACH MISC MISCELLANE PRN (16:24)
[2021-04-20] MEDS ORDERED: METOCLOPRAMIDE 5 MG/ML 2 ML VIAL IVP PRN (16:24)
[2021-04-20] MEDS ORDERED: Magnesium Replacement Protocol 1 EACH MISC MISCELLANE PRN (16:24)
[2021-04-20] MEDS ORDERED: BENZOCAINE/MENTHOL LOZENG 1 EACH LOZENGE MUCOUS MEM PRN (16:24)
[2021-04-20] MEDS ORDERED: AMIODARONE 360 MG in DEXTROSE 5% IN WATER 200 ML IV PRN ×2 (16:24)
[2021-04-20] MEDS ORDERED: ONDANSETRON 4 MG/2 ML VIAL IVP PRN (16:24)
[2021-04-20] MEDS ORDERED: hydrALAZINE HCL 20 MG/ML 1 ML VIAL IVP PRN (16:24)
[2021-04-20] MEDS ORDERED: Potassium Replacement Protocol 1 EACH MISC MISCELLANE PRN (16:24)
[2021-04-20 16:41] LABS: Glucose,Whole Blood 110 mg/dL (75-99)
[2021-04-20 16:48] LABS: ABG Base Excess 1.5 mmol/L; ABG HCO3 26 mmol/L (21-25); ABG PCO2 44 mmHg (35-45); ABG PH 7.39 (7.35-7.45); ABG PO2 97 mmHg (83-108); ABG TCO2 28 mmol/L (19-24)
[2021-04-20] MEDS: SODIUM CHLORIDE 0.9% 1,000 ML IV SCH (16:53)
[2021-04-20] MEDS ORDERED: DEXMEDETOMIDINE/0.9% NACL(PMX) 400 MCG in EMPTY BAG 1 BAG IV SCH (17:00)
--- NOTE | 2021-04-20 17:08 | XR ---
EXAMINATION TYPE: XR chest 1V portable DATE OF EXAM: 04/20/2021 COMPARISON: 04/18/2021 HISTORY: Chest pain postop cardiac surgery. TECHNIQUE: 2 views FINDINGS: There is right jugular catheter with tip in the right pulmonary artery. Endotracheal tube i s 3 cm from the rosario. There is some apparent drainage tubing over the base of the heart. There is p ulmonary vascular mild congestion. There is left side chest tube. There are sternal wires. IMPRESSION: There is some mild atelectasis at the lung bases. No pneumothorax.
[2021-04-20 17:11] LABS: Glucose,Whole Blood 107 mg/dL (75-99)
[2021-04-20 17:11] LABS: Ionized Calcium 5.2 mg/dL (4.5-5.3)
[2021-04-20 17:17] LABS: Basophils % (A) 0 %; Eosinophils # (A) 0.1 k/uL (0-0.7); Eosinophils % (A) 1 %; HCT 33.6 % (39.0-53.0); Lymphocytes # (A) 0.8 k/uL (1.0-4.8); Lymphocytes % (A) 10 %; MCH 31.9 pg (25.0-35.0); MCHC 36.3 g/dL (31.0-37.0); Mean Platelet Volume 6.9; Monocytes # (A) 0.4 k/uL (0-1.0); Monocytes % (A) 5 %; Neutrophils # (A) 6.8 k/uL (1.3-7.7); Neutrophils % (A) 83 %; Platelet Count 159 k/uL (150-450); RBC 3.82 m/uL (4.30-5.90); RDW 13.2 % (11.5-15.5); WBC 8.2 k/uL (3.8-10.6)
[2021-04-20 17:20] LABS: ALT 18 U/L (4-49); AST 50 U/L (17-59); African American GFR (CKD) >90 (>60 ml/min/1.73 sqM); Albumin 2.6 g/dL (3.5-5.0); Alkaline Phosphatase 46 U/L (38-126); Anion Gap 4 mmol/L; Blood Urea Nitrogen 14 mg/dL (9-20); Calcium 8.3 mg/dL (8.4-10.2); Carbon Dioxide 25 mmol/L (22-30); Chloride 108 mmol/L (98-107); Glucose 106 mg/dL (74-99); INR 1.1 (<1.2); Magnesium 2.6 mg/dL (1.6-2.3); Non-African American GFR(CKD) >90 (>60 ml/min/1.73 sqM); Partial Thromboplastin Time 41.2 sec (22.0-30.0); Prothrombin Time 11.4 sec (9.0-12.0); Sodium 137 mmol/L (137-145); Total Bilirubin 0.7 mg/dL (0.2-1.3); Total Protein 4.6 g/dL (6.3-8.2)
[2021-04-20 17:27] LABS: HGB 12.2 gm/dL (13.0-17.5)
[2021-04-20] MEDS: ACETAMINOPHEN IV (For NPO) 1,000 MG in EMPTY BAG 1 BAG IVPB SCH ×2 (17:47→23:55)
--- NOTE | 2021-04-20 17:52 | P.PN ---
Progress Note - Text Progress Note Date: 04/20/21 attempted to see patient 3 times and in surgery. Discussed with cardiothorasic surgery and will re-eval patient tomorrow
[2021-04-20] MEDS ORDERED: KETOROLAC 15 MG/ML 1 ML VIAL IVP SCH (18:00)
[2021-04-20 18:17] LABS: Glucose,Whole Blood 119 mg/dL (75-99)
[2021-04-20 19:11] LABS: Glucose,Whole Blood 149 mg/dL (75-99)
[2021-04-20 19:40] LABS: Basophils % (A) 0 %; Eosinophils % (A) 0 %; HCT 37.6 % (39.0-53.0); Lymphocytes # (A) 0.5 k/uL (1.0-4.8); Lymphocytes % (A) 5 %; MCH 31.4 pg (25.0-35.0); MCHC 34.7 g/dL (31.0-37.0); MCV 90.4 fL (80.0-100.0); Mean Platelet Volume 7.5; Monocytes # (A) 0.8 k/uL (0-1.0); Monocytes % (A) 8 %; Neutrophils # (A) 8.8 k/uL (1.3-7.7); Neutrophils % (A) 86 %; Platelet Count 176 k/uL (150-450); RBC 4.16 m/uL (4.30-5.90); RDW 12.8 % (11.5-15.5); WBC 10.3 k/uL (3.8-10.6)
[2021-04-20] MEDS ORDERED: IPRATROPIUM-ALBUTEROL 3 ML NEB INHALATION SCH (20:00)
[2021-04-20 20:02] LABS: ABG Base Excess -0.9 mmol/L; ABG HCO3 24 mmol/L (21-25); ABG Oxygen Saturation 98.3 % (94-97); ABG PCO2 40 mmHg (35-45); ABG PH 7.39 (7.35-7.45); ABG PO2 108 mmHg (83-108); ABG TCO2 25 mmol/L (19-24); Allen Test Performed? Yes
[2021-04-20 20:07] LABS: African American GFR (CKD) >90 (>60 ml/min/1.73 sqM); Blood Urea Nitrogen 13 mg/dL (9-20); Calcium 8.2 mg/dL (8.4-10.2); Glucose 154 mg/dL (74-99); Non-African American GFR(CKD) >90 (>60 ml/min/1.73 sqM); Potassium 3.8 mmol/L (3.5-5.1); Sodium 136 mmol/L (137-145)
--- NOTE | 2021-04-20 20:09 | OP ---
OPERATIVE REPORT DATE OF THE SURGERY: 04/20/2021. SURGEON: Dr. Tammi Obregon. ASSISTANTS: 1. WILTON Zhou. 2. KAMILAH Newell. PREOPERATIVE DIAGNOSIS: 1. Triple-vessel coronary artery disease with nju-DK-irmymgrrt myocardial infarction. 2. Hyperlipidemia. 3. Strong family history of coronary artery disease. POSTOPERATIVE DIAGNOSIS: 1. Triple-vessel coronary artery disease with juu-EU-rxejhwzgs myocardial infarction. 2. Hyperlipidemia. 3. Strong family history of coronary artery disease. PROCEDURE: 1. Quintuple multiple arterial coronary artery bypass grafting using the left internal mammary artery sequentially to the diagonal artery, then to the left anterior descending artery, the left radial artery from the aorta sequentially to the first obtuse marginal artery, then to the second obtuse marginal artery, reverse saphenous vein graft from the aorta to the right coronary artery. 2. Exclusion of the left atrial appendage using a 35 mm AtriClip. 3. Endoscopic harvesting of the left radial artery. 4. Endoscopic harvesting of the right greater saphenous vein. 5. Intraoperative transesophageal echocardiogram and epiaortic scanning. 6. Intraoperative graft flow measurements using the Quosisstim system. INDICATION FOR SURGERY: Patient is a 60-year-old gentleman who presented with a history of around 3 days of stuttering chest pain and was ruled in for twq-FX-ckojnvlzy myocardial infarction. Cardiac catheterization showed diffuse coronary artery disease. The patient is taken today for urgent coronary artery bypass grafting. Will plan to use multiple arterial conduits in view of his age. The STS risk was discussed with him. He understood it and agreed to proceed. DESCRIPTION OF THE PROCEDURE: With the patient in supine position, right internal jugular [place] catheter and a right radial arterial line were placed in the preoperative holding area. The patient had normal PA pressure and good cardiac index. Subsequently he was brought to the operating room, where general endotracheal anesthesia was induced uneventfully. Casper catheter was inserted. He received 2 grams of cefazolin intravenously. The chest, abdomen, both lower extremities and the left upper extremity were prepped and draped using ChloraPrep. Ioban was used to cover the skin. Transesophageal echocardiogram confirmed the preoperative finding of preserved left ventricular function and no significant valvular abnormalities. Midline sternotomy was performed and no bone wax was used. There was a breach in the right pleura which was drained with a 19-Indian Elio drain. The left hemisternum was elevated and the left internal mammary artery was harvested in a somewhat skeletonized fashion. The left pleura was intentionally opened in this process and was drained with a 19-Indian Elio drain. The patient was given 5000 units of heparin and the mammary artery was clipped distally before its bifurcation and transected. It had an excellent pulsatile flow in it and was around 2 mm in diameter. In the same setting, the left radial artery was exposed at the wrist and a clamping trial revealed preserved signal in the left index O2 saturation probe. It was harvested endoscopically subsequently without using a tourniquet. The forearm incision was closed over a drain. The radial artery was prepared by incising the fascia all along its volar aspect and clipping all its branches. It was of excellent quality, around 3 mm in diameter. The right greater saphenous vein was harvested endoscopically from groin to above ankle level. That vein was mostly thinned out and enlarged, of fair quality. Leg incisions were closed over a drain. Standard Crocker retractor was used. Mediastinal fat was transected between 2 ties and epiaortic scanning revealed some concentric intimal thickening of the ascending aorta, but no protruding atheroma. The pericardium was opened in an inverted T-fashion and a pericardial cradle was created. Findings included a normal soft aorta and a normal-sized heart with some visible and palpable coronary artery disease that was diffuse in nature and mainly in the proximal aspect of the coronary vessels. After systemic heparinization and after placement of respective pledgeted pursestrings, aortic cannulation with a 21-Indian Soft flow cannula and venous cannulation via the right atrial appendage with a 3-stage 29-Indian cannula were performed. Antegrade as well as retrograde cardioplegia catheters were placed. Cardiopulmonary bypass was initiated and patient's temperature was allowed to drift down to 34 degrees Celsius. With the heart empty and beating, we looked at the target. At the diagonal artery, the left anterior descending artery, the first and the second obtuse marginal arteries as well as the right coronary artery per se would be the site for bypass. Aorta was clamped, and during aortic clamping myocardial protection was achieved with an initial dose of antegrade cold blood cardioplegia with adequate arrest at around 250 mL followed by a dose of retrograde cold blood cardioplegia. All subsequent doses were given retrograde at 15-minute intervals. As we were performing the proximal anastomosis, around 1 L of warm blood was given via the retrograde route. We started by excluding the left atrial appendage using a 35 mm AtriClip deployed at its base. The first distal anastomosis was between the segment of vein of around 4-5 mm in diameter, thin-walled, and the right coronary artery before its bifurcation where it was around 2 mm in diameter with some eccentric plaque, using Prolene 7-0 in continuous fashion. The second distal anastomosis was between the end of the radial artery and the second obtuse marginal artery, which was opened and was around 1.7 mm in diameter, using Prolene 7-0 in continuous fashion. The third distal anastomosis was between the same radial artery and the first obtuse marginal artery in a gaviota-shaped side-to- side using Prolene 7-0 in continuous fashion. The fourth distal anastomosis was between the left internal mammary artery and the diagonal artery in a [id number] parallel fashion using Prolene 7-0. The end of the left internal mammary artery was anastomosed to the left anterior descending artery using Prolene 7-0 in continuous fashion. I used a 1 mm shunt that was placed in all anastomoses and removed before completing the anastomoses. Satisfied with all the distal anastomoses, rewarming was started as we punched out 2 buttons of 4 to 4.5 mm each from the ascending aorta and performed two proximal anastomoses of the radial artery to the aorta using Prolene 7-0 and the vein to the aorta using Prolene 6-0 in a continuous fashion. The patient was given lidocaine and magnesium. As mentioned above, he had received 1 L of warm blood via the retrograde route as we performed the proximal anastomoses. The patient was placed in Trendelenburg position. After de-airing maneuvers were performed, we unclamped the aorta with the aortic vent on maximum. The patient regained spontaneous sinus rhythm. All anastomoses appeared to be hemostatic. After a period of reperfusion of around 15 minutes, we were able to wean off cardiopulmonary bypass without the need of any inotropic or vasopressor support. STEPHANIE showed good left ventricular function with no issues. At this point, we proceeded with formal graft flow measurements using a 4 mm probe. The flow into the vein to the RCA was 42 mm/minute and pulsatility index of 2. The flow into the radial artery going to the 2 obtuse marginal arteries was 95 mL/minute, pulsatility index of 1.5. The flow into the left internal mammary artery going to the diagonal artery and the left anterior descending artery was 52 mL/minute with a pulsatility index of 1.8. All were showing excellent functioning grafts. With that, all pump suckers were stopped and test-dose then full-dose protamine was given. Decannulation followed. The retrograde site as well as the aortic cannulation site required reinforcement with pledgeted 4-0 Prolene. No pacing wires were placed. Two 19-Indian Elio drains were left substernally. Pericardial fat and mediastinal fat were approximated over the heart and all the grafts. After ensuring adequate hemostasis and hemodynamics and after correct sponge, instrument and needle counts, the sternum was closed using 5 pprtjf-si-cknnt pineal cables after interposing Fibrillar between the sternal edges. Thorough irrigation with cefazolin followed. The rest of the closure proceeded in layers. Skin glue was applied. Patient did not receive any blood bank product but received 400 mL of Cell Saver blood. He was transferred to the ICU on low-dose nitroglycerin with a heart rate of 76, sinus, with normal EKG, mean arterial pressure of 72, PA pressure of 29/12 with a cardiac index of 2.9. MMODL / IJN: [id number] / MTDCarson
[2021-04-20] MEDS: MORPHINE SULFATE 2 MG/ML SYRINGE IVP PRN (20:16)
[2021-04-20 20:17] LABS: Anion Gap 8 mmol/L; Carbon Dioxide 22 mmol/L (22-30); Chloride 106 mmol/L (98-107)
[2021-04-20] MEDS ORDERED: fentaNYL (PF) 50 MCG/ML 2 ML AMP IVP ONE (20:27)
[2021-04-20 20:49] LABS: Glucose,Whole Blood 143 mg/dL (75-99)
[2021-04-20] MEDS ORDERED: POTASSIUM CHLORIDE 20 MEQ in WATER FOR INJECTION 1 100ML.BAG IVPB STA (20:49)
[2021-04-20] MEDS: METOPROLOL TARTRATE 25 MG TAB PO SCH (21:26)
[2021-04-20] MEDS: MUPIROCIN 2% OINT 22 GM TUBE NASAL SCH (21:56)
[2021-04-20 22:29] LABS: Glucose,Whole Blood 121 mg/dL (75-99)
[2021-04-20 22:39] LABS: Basophils % (A) 0 %; Eosinophils % (A) 0 %; HCT 34.7 % (39.0-53.0); HGB 12.1 gm/dL (13.0-17.5); Lymphocytes # (A) 0.4 k/uL (1.0-4.8); Lymphocytes % (A) 4 %; MCH 31.5 pg (25.0-35.0); MCHC 34.9 g/dL (31.0-37.0); MCV 90.3 fL (80.0-100.0); Mean Platelet Volume 6.7; Monocytes # (A) 0.6 k/uL (0-1.0); Monocytes % (A) 7 %; Neutrophils # (A) 7.7 k/uL (1.3-7.7); Neutrophils % (A) 88 %; Platelet Count 162 k/uL (150-450); RBC 3.84 m/uL (4.30-5.90); RDW 12.8 % (11.5-15.5); WBC 8.7 k/uL (3.8-10.6)
[2021-04-20 23:14] LABS: Glucose,Whole Blood 116 mg/dL (75-99)
[2021-04-20] MEDS: HEPARIN SODIUM,PORCINE/PF 5,000 UNIT/0.5 ML SYRINGE SQ SCH (23:52)
[2021-04-20] MEDS: KETOROLAC 15 MG/ML 1 ML VIAL IVP SCH (23:53)
[2021-04-21 00:18] LABS: Glucose,Whole Blood 113 mg/dL (75-99)
[2021-04-21 01:24] LABS: Glucose,Whole Blood 137 mg/dL (75-99)
[2021-04-21] MEDS: HYDROcodone/APAP 5-325MG 1 EACH TAB PO PRN ×5 (01:30→22:17)
[2021-04-21 02:21] LABS: Glucose,Whole Blood 135 mg/dL (75-99)
[2021-04-21 03:02] LABS: Glucose,Whole Blood 127 mg/dL (75-99)
[2021-04-21 04:00] LABS: Glucose,Whole Blood 123 mg/dL (75-99)
[2021-04-21] MEDS: MORPHINE SULFATE 2 MG/ML SYRINGE IVP PRN (04:18)
[2021-04-21 04:24] LABS: Basophils % (A) 0 %; Eosinophils % (A) 0 %; HCT 33.5 % (39.0-53.0); HGB 11.8 gm/dL (13.0-17.5); Lymphocytes # (A) 0.5 k/uL (1.0-4.8); Lymphocytes % (A) 6 %; MCH 31.8 pg (25.0-35.0); MCHC 35.2 g/dL (31.0-37.0); MCV 90.5 fL (80.0-100.0); Monocytes # (A) 0.7 k/uL (0-1.0); Monocytes % (A) 9 %; Neutrophils # (A) 6.6 k/uL (1.3-7.7); Neutrophils % (A) 84 %; Platelet Count 152 k/uL (150-450); RBC 3.71 m/uL (4.30-5.90); RDW 12.8 % (11.5-15.5); WBC 7.8 k/uL (3.8-10.6)
[2021-04-21 04:38] LABS: ALT 19 U/L (4-49); AST 61 U/L (17-59); African American GFR (CKD) >90 (>60 ml/min/1.73 sqM); Alkaline Phosphatase 46 U/L (38-126); Anion Gap 4 mmol/L; Blood Urea Nitrogen 15 mg/dL (9-20); Calcium 8.4 mg/dL (8.4-10.2); Carbon Dioxide 25 mmol/L (22-30); Chloride 106 mmol/L (98-107); Glucose 121 mg/dL (74-99); Magnesium 2.1 mg/dL (1.6-2.3); Non-African American GFR(CKD) >90 (>60 ml/min/1.73 sqM); Potassium 4.4 mmol/L (3.5-5.1); Sodium 135 mmol/L (137-145); Total Bilirubin 1.3 mg/dL (0.2-1.3)
[2021-04-21 05:06] LABS: Glucose,Whole Blood 122 mg/dL (75-99)
[2021-04-21] MEDS: KETOROLAC 15 MG/ML 1 ML VIAL IVP SCH ×3 (05:48→17:57)
[2021-04-21 06:06] LABS: Glucose,Whole Blood 123 mg/dL (75-99)
[2021-04-21 07:03] LABS: Glucose,Whole Blood 131 mg/dL (75-99)
--- NOTE | 2021-04-21 07:49 | P.PN ---
Subjective Progress Note Date: 04/21/21 Principal diagnosis: Triple-vessel coronary artery disease, non-STEMI this admission, previous medical history of hyperlipidemia, remote history of paroxysmal atrial fibrillation 10-15 years ago, never smoker, strong family history of coronary artery disease including premature coronary artery disease with grandmother diagnosed at 60 years old. Vaccinated against Covid 19 with Pfizer POD #1 quintuple multiple arterial coronary artery bypass grafting using the left internal mammary artery sequentially to the diagonal artery, then to the left anterior descending artery, left radial artery from the aorta sequentially to the first obtuse marginal artery, then to the second obtuse marginal artery, reverse saphenous vein graft from the aorta to the right coronary artery, ex clusion of the left atrial appendage using a 35 mm AtriClip, endoscopic harvesting of the left radial artery, endoscopic harvesting of the right greater saphenous vein from the groin to above the ankle level, intraoperative transesophageal echocardiogram and epi-aortic scanning, intraoperative graft flow measurements using the [employer] system Postoperative acute blood loss anemia, expected given hemodilution and cardiopulmonary bypass pump Patient is currently sitting up in a recliner in the intensive care unit in no acute distress eating a clear liquid breakfast. He was successfully extubated last night at 20:10. States post surgical pain is controlled on current medication regimen, denies shortness of breath. Remains in sinus rhythm, hemodynamically stable on no inotropes or pressors. He had an uneventful night. Right internal jugular Nerinx/Cordis, right radial arterial line, med iastinal/left/right pleural chest tubes all remain. He is oxygenating well on 2 L nasal cannula. Actively using incentive spirometer and achieving 750 mL. Urine output adequate. No other new concerns. Objective - Vital Signs Vital signs: Vital Signs Temp 99.1 F 04/21/21 00:00 Pulse 98 04/21/21 07:00 Resp 16 04/21/21 07:00 BP 138/90 04/21/21 06:00 Pulse Ox 96 04/21/21 07:00 Intake & Output 04/20/21 04/21/21 04/21/21 18:59 06:59 18:59 Intake Total 231.332 7239.634 59 Output Total 2695 1460 25 Balance -2226.956 -46.366 34 Weight 94.8 kg Intake: IV 455.5 1211.0 59 .9 150 600 50 ACETAMINOPHEN IV (For NPO 100 ) 1,000 mg In Empty Bag 1 bag @ 400 mls/hr IVPB Q6HR [facility] Rx#:[id number] Albumin Human 5% 250 ml 250 In Empty Bag 1 bag @ 250 mls/hr IVPB Q1HR PRN Rx#: [id number] Cardiac Output 70 150 Nitroglycerin-D5w Pmx 50 4.5 3.0 mg In Dextrose/Water 1 250ml.bag @ 5 MCG/MIN 1.5 mls/hr IV .Q24H ED[facility] Rx#: [id number] Potassium Chloride 20 meq 100 In Water For Injection 1 100ml.bag @ 50 mls/hr IVPB ONCE STA Rx#: [id number] Pressure Bags 27 108 9 Intake, IV Titration 12.544 2.634 0 Amount Clevidipine Butyrate 25 1.400 mg In Empty Bag 1 bag @ 1 MG/HR 2 mls/hr IV .Q24H [facility] Rx#:[id number] Insulin Regular 100 unit 2.634 0 In Sodium Chloride 0.9% 100 ml @ Per Protocol IV .Q0M [facility] Rx#:[id number] propofoL 1,000 mg In 11.144 Empty Bag 1 bag @ Titrate IV .Q0M EDVIN Rx#: [id number] Oral 200 Output: Chest Tube Drainage 395 450 Left Pleural 250 260 Mediastinal X 2 120 130 Right Pleural 25 60 Drainage 20 Left Arm 20 Urine 1100 990 25 Estimated Blood Loss 1200 Other: Voiding Method Indwelling Catheter Indwelling Catheter ABP, PAP, CO, CI - Last Documented Arterial Blood Pressure 111/60 Pulmonary Artery Pressure 23/15 Cardiac Output 4.8 Cardiac Index 2.2 - Exam CONSTITUTIONAL: Appears comfortable, cooperative, no acute distress RESPIRATORY: Lungs sounds diminished bilaterally. Respirations even, nonlabored. Currently on 2 L nasal cannula with oxygen saturation 95%. Able to achieve 750 mL on incentive spirometry. Weak cough. CARDIOVASCULAR: S1, S2 present. Regular rate and rhythm, sinus rhythm on telemetry. Sternum stable. Palpable peripheral pulses bilaterally. No edema present. No calf pain or tenderness noted. Heart hugger in place with patient demonstrating appropriate use. Antiembolism stockings, SCDs present. GASTROINTESTINAL: Abdomen soft, nontender, nondistended. Hypoactive bowel sounds present 4 quadrants. Tolerating clear liquid diet. Negative flatus GENITOURINARY: Casper present draining clear, yellow urine. Output overnight 35-75 mL per hour INTEGUMENTARY: Skin is warm and dry with evidence of good perfusion. Anterior chest incision well approximated and covered with dry intact dressing. Left lower extremity EVH site well approximated without redness or drainage. Left radial artery harvest site with FREDDY drain present, minimal drainage NEUROLOGIC: Cranial nerves II through XII intact MUSKULOSKELETAL: Able to move all extremities, strength equal bilaterally PSYCHIATRIC: Alert and oriented to person place and time, appropriate affect, intact judgment and insight INVASIVE LINES AND TUBES: Mediastinal/left/right pleural chest tubes present and connected to wall suction, no air leaks present. Mediastinal tube with 60 mL serosanguineous drainage overnight, 300 mL since surgery. Left pleural chest tube with 190 mL serosanguineous drainage overnight, 500 mL since surgery. Right pleural chest tube with 10 mL serosanguineous drainage overnight, 100 mL since surgery. Right internal jugular Nerinx/Cordis, right radial arterial line present. Last CO/CI 4.8/2.2, PA 25/10, CVP 4. - Allied health notes Allied health notes reviewed: nursing - Labs CBC & Chem 7: 04/21/21 03:55 04/21/21 03:55 Labs: Abnormal Lab Results - Last 24 Hours (Table) 04/19/21 04/20/21 04/20/21 Range/Units 15:51 08:27 09:27 RBC (4.30-5.90) m/uL Hgb (13.0-17.5) gm/dL Hct (39.0-53.0) % Neutrophils # (1.3-7.7) k/uL Lymphocytes # (1.0-4.8) k/uL APTT (22.0-30.0) sec ABG pCO2 49 H (35-45) mmHg ABG pO2 277 H (83-108) mmHg ABG HCO3 28 H 26 H (21-25) mmol/L ABG Total CO2 29 H 27 H (19-24) mmol/L ABG O2 Saturation 98.0 H 100.0 H (94-97) % ABG Hematocrit 50 H (34.0-46.0) % ABG Potassium 4.6 H (3.4-4.5) mmol/L ABG Ionized Calcium (4.5-5.3) mg/dL ABG Glucose (75-99) mg/dL ABG Lactic Acid (0.5-1.6) mmol/L Hemoglobin (13.0-17.5) gm/dL Sodium (137-145) mmol/L Chloride (98-107) mmol/L Glucose (74-99) mg/dL POC Glucose (mg/dL) (75-99) mg/dL Calcium (8.4-10.2) mg/dL Magnesium (1.6-2.3) mg/dL AST (17-59) U/L Total Protein (6.3-8.2) g/dL Albumin (3.5-5.0) g/dL Arterial Blood Potassium 4.6 H (3.4-4.5) mmol/L Arterial Blood Glucose (75-99) mg/dL Crossmatch See Detail 04/20/21 04/20/21 04/20/21 Range/Units 11:38 12:54 13:30 RBC (4.30-5.90) m/uL Hgb (13.0-17.5) gm/dL Hct (39.0-53.0) % Neutrophils # (1.3-7.7) k/uL Lymphocytes # (1.0-4.8) k/uL APTT (22.0-30.0) sec ABG pCO2 (35-45) mmHg ABG pO2 137 H >420 H 297 H (83-108) mmHg ABG HCO3 (21-25) mmol/L ABG Total CO2 26 H 25 H 25 H (19-24) mmol/L ABG O2 Saturation 99.3 H 100.0 H 100.0 H (94-97) % ABG Hematocrit (34.0-46.0) % ABG Potassium 5.2 H (3.4-4.5) mmol/L ABG Ionized Calcium 4.1 L 4.1 L (4.5-5.3) mg/dL ABG Glucose 112 H 110 H 110 H (75-99) mg/dL ABG Lactic Acid (0.5-1.6) mmol/L Hemoglobin 11.6 L 11.3 L (13.0-17.5) gm/dL Sodium (137-145) mmol/L Chloride (98-107) mmol/L Glucose (74-99) mg/dL POC Glucose (mg/dL) (75-99) mg/dL Calcium (8.4-10.2) mg/dL Magnesium (1.6-2.3) mg/dL AST (17-59) U/L Total Protein (6.3-8.2) g/dL Albumin (3.5-5.0) g/dL Arterial Blood Potassium 5.2 H (3.4-4.5) mmol/L Arterial Blood Glucose 112 H 110 H 110 H (75-99) mg/dL Crossmatch 04/20/21 04/20/21 04/20/21 Range/Units 14:10 14:44 16:04 RBC (4.30-5.90) m/uL Hgb (13.0-17.5) gm/dL Hct (39.0-53.0) % Neutrophils # (1.3-7.7) k/uL Lymphocytes # (1.0-4.8) k/uL APTT (22.0-30.0) sec ABG pCO2 (35-45) mmHg ABG pO2 418 H 319 H (83-108) mmHg ABG HCO3 (21-25) mmol/L ABG Total CO2 26 H 27 H 26 H (19-24) mmol/L ABG O2 Saturation 100.0 H 100.0 H 98.6 H (94-97) % ABG Hematocrit 33 L 32 L (34.0-46.0) % ABG Potassium 5.2 H 5.1 H (3.4-4.5) mmol/L ABG Ionized Calcium 4.1 L 4.1 L 4.2 L (4.5-5.3) mg/dL ABG Glucose 111 H 113 H 109 H (75-99) mg/dL ABG Lactic Acid 1.7 H (0.5-1.6) mmol/L Hemoglobin 10.7 L 11.3 L 10.6 L (13.0-17.5) gm/dL Sodium (137-145) mmol/L Chloride (98-107) mmol/L Glucose (74-99) mg/dL POC Glucose (mg/dL) (75-99) mg/dL Calcium (8.4-10.2) mg/dL Magnesium (1.6-2.3) mg/dL AST (17-59) U/L Total Protein (6.3-8.2) g/dL Albumin (3.5-5.0) g/dL Arterial Blood Potassium 5.2 H 5.1 H (3.4-4.5) mmol/L Arterial Blood Glucose 111 H 113 H 109 H (75-99) mg/dL Crossmatch 04/20/21 04/20/21 04/20/21 Range/Units 16:37 16:37 16:37 RBC 3.82 L (4.30-5.90) m/uL Hgb 12.2 L D (13.0-17.5) gm/dL Hct 33.6 L (39.0-53.0) % Neutrophils # (1.3-7.7) k/uL Lymphocytes # 0.8 L (1.0-4.8) k/uL APTT 41.2 H (22.0-30.0) sec ABG pCO2 (35-45) mmHg ABG pO2 (83-108) mmHg ABG HCO3 (21-25) mmol/L ABG Total CO2 (19-24) mmol/L ABG O2 Saturation (94-97) % ABG Hematocrit (34.0-46.0) % ABG Potassium (3.4-4.5) mmol/L ABG Ionized Calcium (4.5-5.3) mg/dL ABG Glucose (75-99) mg/dL ABG Lactic Acid (0.5-1.6) mmol/L Hemoglobin (13.0-17.5) gm/dL Sodium (137-145) mmol/L Chloride 108 H (98-107) mmol/L Glucose 106 H (74-99) mg/dL POC Glucose (mg/dL) (75-99) mg/dL Calcium 8.3 L (8.4-10.2) mg/dL Magnesium 2.6 H (1.6-2.3) mg/dL AST (17-59) U/L Total Protein 4.6 L (6.3-8.2) g/dL Albumin 2.6 L (3.5-5.0) g/dL Arterial Blood Potassium (3.4-4.5) mmol/L Arterial Blood Glucose (75-99) mg/dL Crossmatch 04/20/21 04/20/21 04/20/21 Range/Units 16:38 16:39 17:00 RBC (4.30-5.90) m/uL Hgb (13.0-17.5) gm/dL Hct (39.0-53.0) % Neutrophils # (1.3-7.7) k/uL Lymphocytes # (1.0-4.8) k/uL APTT (22.0-30.0) sec ABG pCO2 (35-45) mmHg ABG pO2 (83-108) mmHg ABG HCO3 26 H (21-25) mmol/L ABG Total CO2 28 H (19-24) mmol/L ABG O2 Saturation 98.0 H (94-97) % ABG Hematocrit (34.0-46.0) % ABG Potassium (3.4-4.5) mmol/L ABG Ionized Calcium (4.5-5.3) mg/dL ABG Glucose (75-99) mg/dL ABG Lactic Acid (0.5-1.6) mmol/L Hemoglobin (13.0-17.5) gm/dL Sodium (137-145) mmol/L Chloride (98-107) mmol/L Glucose (74-99) mg/dL POC Glucose (mg/dL) 110 H 107 H (75-99) mg/dL Calcium (8.4-10.2) mg/dL Magnesium (1.6-2.3) mg/dL AST (17-59) U/L Total Protein (6.3-8.2) g/dL Albumin (3.5-5.0) g/dL Arterial Blood Potassium (3.4-4.5) mmol/L Arterial Blood Glucose (75-99) mg/dL Crossmatch 04/20/21 04/20/21 04/20/21 Range/Units 18:06 19:01 19:24 RBC (4.30-5.90) m/uL Hgb (13.0-17.5) gm/dL Hct (39.0-53.0) % Neutrophils # (1.3-7.7) k/uL Lymphocytes # (1.0-4.8) k/uL APTT (22.0-30.0) sec ABG pCO2 (35-45) mmHg ABG pO2 (83-108) mmHg ABG HCO3 (21-25) mmol/L ABG Total CO2 (19-24) mmol/L ABG O2 Saturation (94-97) % ABG Hematocrit (34.0-46.0) % ABG Potassium (3.4-4.5) mmol/L ABG Ionized Calcium (4.5-5.3) mg/dL ABG Glucose (75-99) mg/dL ABG Lactic Acid (0.5-1.6) mmol/L Hemoglobin (13.0-17.5) gm/dL Sodium 136 L (137-145) mmol/L Chloride (98-107) mmol/L Glucose 154 H (74-99) mg/dL POC Glucose (mg/dL) 119 H 149 H (75-99) mg/dL Calcium 8.2 L (8.4-10.2) mg/dL Magnesium (1.6-2.3) mg/dL AST (17-59) U/L Total Protein (6.3-8.2) g/dL Albumin (3.5-5.0) g/dL Arterial Blood Potassium (3.4-4.5) mmol/L Arterial Blood Glucose (75-99) mg/dL Crossmatch 04/20/21 04/20/21 04/20/21 Range/Units 19:24 19:57 20:38 RBC 4.16 L (4.30-5.90) m/uL Hgb (13.0-17.5) gm/dL Hct 37.6 L (39.0-53.0) % Neutrophils # 8.8 H (1.3-7.7) k/uL Lymphocytes # 0.5 L (1.0-4.8) k/uL APTT (22.0-30.0) sec ABG pCO2 (35-45) mmHg ABG pO2 (83-108) mmHg ABG HCO3 (21-25) mmol/L ABG Total CO2 25 H (19-24) mmol/L ABG O2 Saturation 98.3 H (94-97) % ABG Hematocrit (34.0-46.0) % ABG Potassium (3.4-4.5) mmol/L ABG Ionized Calcium (4.5-5.3) mg/dL ABG Glucose (75-99) mg/dL ABG Lactic Acid (0.5-1.6) mmol/L Hemoglobin (13.0-17.5) gm/dL Sodium (137-145) mmol/L Chloride (98-107) mmol/L Glucose (74-99) mg/dL POC Glucose (mg/dL) 143 H (75-99) mg/dL Calcium (8.4-10.2) mg/dL Magnesium (1.6-2.3) mg/dL AST (17-59) U/L Total Protein (6.3-8.2) g/dL Albumin (3.5-5.0) g/dL Arterial Blood Potassium (3.4-4.5) mmol/L Arterial Blood Glucose (75-99) mg/dL Crossmatch 04/20/21 04/20/21 04/20/21 Range/Units 22:16 22:18 23:13 RBC 3.84 L (4.30-5.90) m/uL Hgb 12.1 L (13.0-17.5) gm/dL Hct 34.7 L (39.0-53.0) % Neutrophils # (1.3-7.7) k/uL Lymphocytes # 0.4 L (1.0-4.8) k/uL APTT (22.0-30.0) sec ABG pCO2 (35-45) mmHg ABG pO2 (83-108) mmHg ABG HCO3 (21-25) mmol/L ABG Total CO2 (19-24) mmol/L ABG O2 Saturation (94-97) % ABG Hematocrit (34.0-46.0) % ABG Potassium (3.4-4.5) mmol/L ABG Ionized Calcium (4.5-5.3) mg/dL ABG Glucose (75-99) mg/dL ABG Lactic Acid (0.5-1.6) mmol/L Hemoglobin (13.0-17.5) gm/dL Sodium (137-145) mmol/L Chloride (98-107) mmol/L Glucose (74-99) mg/dL POC Glucose (mg/dL) 121 H 116 H (75-99) mg/dL Calcium (8.4-10.2) mg/dL Magnesium (1.6-2.3) mg/dL AST (17-59) U/L Total Protein (6.3-8.2) g/dL Albumin (3.5-5.0) g/dL Arterial Blood Potassium (3.4-4.5) mmol/L Arterial Blood Glucose (75-99) mg/dL Crossmatch 04/21/21 04/21/21 04/21/21 Range/Units 00:16 01:23 02:20 RBC (4.30-5.90) m/uL Hgb (13.0-17.5) gm/dL Hct (39.0-53.0) % Neutrophils # (1.3-7.7) k/uL Lymphocytes # (1.0-4.8) k/uL APTT (22.0-30.0) sec ABG pCO2 (35-45) mmHg ABG pO2 (83-108) mmHg ABG HCO3 (21-25) mmol/L ABG Total CO2 (19-24) mmol/L ABG O2 Saturation (94-97) % ABG Hematocrit (34.0-46.0) % ABG Potassium (3.4-4.5) mmol/L ABG Ionized Calcium (4.5-5.3) mg/dL ABG Glucose (75-99) mg/dL ABG Lactic Acid (0.5-1.6) mmol/L Hemoglobin (13.0-17.5) gm/dL Sodium (137-145) mmol/L Chloride (98-107) mmol/L Glucose (74-99) mg/dL POC Glucose (mg/dL) 113 H 137 H 135 H (75-99) mg/dL Calcium (8.4-10.2) mg/dL Magnesium (1.6-2.3) mg/dL AST (17-59) U/L Total Protein (6.3-8.2) g/dL Albumin (3.5-5.0) g/dL Arterial Blood Potassium (3.4-4.5) mmol/L Arterial Blood Glucose (75-99) mg/dL Crossmatch 04/21/21 04/21/21 04/21/21 Range/Units 02:58 03:55 03:55 RBC 3.71 L (4.30-5.90) m/uL Hgb 11.8 L (13.0-17.5) gm/dL Hct 33.5 L (39.0-53.0) % Neutrophils # (1.3-7.7) k/uL Lymphocytes # 0.5 L (1.0-4.8) k/uL APTT (22.0-30.0) sec ABG pCO2 (35-45) mmHg ABG pO2 (83-108) mmHg ABG HCO3 (21-25) mmol/L ABG Total CO2 (19-24) mmol/L ABG O2 Saturation (94-97) % ABG Hematocrit (34.0-46.0) % ABG Potassium (3.4-4.5) mmol/L ABG Ionized Calcium (4.5-5.3) mg/dL ABG Glucose (75-99) mg/dL ABG Lactic Acid (0.5-1.6) mmol/L Hemoglobin (13.0-17.5) gm/dL Sodium 135 L (137-145) mmol/L Chloride (98-107) mmol/L Glucose 121 H (74-99) mg/dL POC Glucose (mg/dL) 127 H (75-99) mg/dL Calcium (8.4-10.2) mg/dL Magnesium (1.6-2.3) mg/dL AST 61 H (17-59) U/L Total Protein 5.0 L (6.3-8.2) g/dL Albumin 3.0 L (3.5-5.0) g/dL Arterial Blood Potassium (3.4-4.5) mmol/L Arterial Blood Glucose (75-99) mg/dL Crossmatch 04/21/21 04/21/21 04/21/21 Range/Units 03:58 05:04 06:05 RBC (4.30-5.90) m/uL Hgb (13.0-17.5) gm/dL Hct (39.0-53.0) % Neutrophils # (1.3-7.7) k/uL Lymphocytes # (1.0-4.8) k/uL APTT (22.0-30.0) sec ABG pCO2 (35-45) mmHg ABG pO2 (83-108) mmHg ABG HCO3 (21-25) mmol/L ABG Total CO2 (19-24) mmol/L ABG O2 Saturation (94-97) % ABG Hematocrit (34.0-46.0) % ABG Potassium (3.4-4.5) mmol/L ABG Ionized Calcium (4.5-5.3) mg/dL ABG Glucose (75-99) mg/dL ABG Lactic Acid (0.5-1.6) mmol/L Hemoglobin (13.0-17.5) gm/dL Sodium (137-145) mmol/L Chloride (98-107) mmol/L Glucose (74-99) mg/dL POC Glucose (mg/dL) 123 H 122 H 123 H (75-99) mg/dL Calcium (8.4-10.2) mg/dL Magnesium (1.6-2.3) mg/dL AST (17-59) U/L Total Protein (6.3-8.2) g/dL Albumin (3.5-5.0) g/dL Arterial Blood Potassium (3.4-4.5) mmol/L Arterial Blood Glucose (75-99) mg/dL Crossmatch 04/21/21 Range/Units 07:01 RBC (4.30-5.90) m/uL Hgb (13.0-17.5) gm/dL Hct (39.0-53.0) % Neutrophils # (1.3-7.7) k/uL Lymphocytes # (1.0-4.8) k/uL APTT (22.0-30.0) sec ABG pCO2 (35-45) mmHg ABG pO2 (83-108) mmHg ABG HCO3 (21-25) mmol/L ABG Total CO2 (19-24) mmol/L ABG O2 Saturation (94-97) % ABG Hematocrit (34.0-46.0) % ABG Potassium (3.4-4.5) mmol/L ABG Ionized Calcium (4.5-5.3) mg/dL ABG Glucose (75-99) mg/dL ABG Lactic Acid (0.5-1.6) mmol/L Hemoglobin (13.0-17.5) gm/dL Sodium (137-145) mmol/L Chloride (98-107) mmol/L Glucose (74-99) mg/dL POC Glucose (mg/dL) 131 H (75-99) mg/dL Calcium (8.4-10.2) mg/dL Magnesium (1.6-2.3) mg/dL AST (17-59) U/L Total Protein (6.3-8.2) g/dL Albumin (3.5-5.0) g/dL Arterial Blood Potassium (3.4-4.5) mmol/L Arterial Blood Glucose (75-99) mg/dL Crossmatch Microbiology - Last 24 Hours (Table) 04/18/21 21:33 Nasal Screen MRSA/MSSA - Final Nasal Swab Staphylococcus aureus,Not MRSA - Imaging and Cardiology Chest x-ray: image reviewed Assessment and Plan Assessment: 1. Triple-vessel coronary artery disease, non-STEMI this admission, status post four-vessel CABG 2. History of hyperlipidemia, cholesterol 176, LDL 122 3. Remote history of paroxysmal atrial fibrillation 10-15 years ago, status post exclusion of the left atrial appendage 4. Never smoker, preoperative FEV1 79% of predicted 5. Osteoarthritis 6. Strong family history of coronary artery disease including premature coronary artery disease with grandmother with SC at 60 years old. 7. Postoperative acute blood loss anemia, expected given hemodilution and cardiopulmonary bypass pump Plan: 1. Continue aspirin, statin, Plavix, beta samantha therapy. Will increase beta samantha therapy as tolerated 2. Discontinue IV nitro. Initiate CCB for radial artery spasm prophylaxis, do not discontinue without discussing with cardiac surgery 3. Wean O2 as tolerated. Encourage incentive spirometry use 10 times every hour while awake. Bronchodilators per pulmonology 4. Increase activity, ambulate as tolerated. PT/OT/cardiac rehab consulted 5. Will monitor daily labs and x-rays. Electrolyte replacement per protocol 6. GI/DVT prophylaxis 7. Pain control with current medication regimen 8. Insulin management per primary care service. Patient is not diabetic with hemoglobin A1c 5.3%, he does need tight blood sugar control to promote healing and prevent infection 9. Discontinue Nerinx. Connect Cordis to continuous CVP monitoring 10. Discontinue FREDDY drain 11. Continue mediastinal/left/right pleural chest tubes for another 24 hours 12. Continue Casper catheter for another 24 hours for strict accurate intake and output. Daily weights 13. More recommendations to follow based on patient's progress Time with Patient: Greater than 30
[2021-04-21 07:54] LABS: Glucose,Whole Blood 152 mg/dL (75-99)
--- NOTE | 2021-04-21 08:04 | XR ---
EXAMINATION TYPE: XR chest 1V portable DATE OF EXAM: 04/21/2021 CLINICAL HISTORY: Postoperative cardiac surgery. TECHNIQUE: Single AP portable upright view of the chest is obtained. COMPARISON: Chest x-ray from one day earlier. FINDINGS: Interval extubation with removal of endotracheal tube. 2 adjacent mediastinal drainage cat heters remain present. Stable right internal jugular [place]-Sharon catheter. Stable bibasilar chest tubes . Overlying sternal wires and mediastinal clips along with left atrial appendage clip are all redemon strated. Stable mild cardiomegaly with patchy right basilar opacity. New left basilar opacity. Low lung volume s without pneumothorax redemonstrated. Osseous structures are intact. Surgical clips epigastric regio n redemonstrated. IMPRESSION: Interval extubation. Persistent cardiomegaly and low lung volumes with mild central vascu lar congestion and patchy right basilar atelectasis and/or infiltrate thought stable. New left basila r acute atelectasis and/or infiltrate noted. No visualized pneumothorax with bilateral chest tubes in place.
[2021-04-21] MEDS: HEPARIN SODIUM,PORCINE/PF 5,000 UNIT/0.5 ML SYRINGE SQ SCH ×2 (08:14→16:25)
[2021-04-21] MEDS: METOPROLOL TARTRATE 25 MG TAB PO SCH ×2 (08:15→21:00)
[2021-04-21] MEDS: CLOPIDOGREL 75 MG TAB PO SCH (08:15)
[2021-04-21] MEDS: ASPIRIN 325 MG TAB PO SCH (08:15)
[2021-04-21] MEDS: IPRATROPIUM-ALBUTEROL 3 ML NEB INHALATION SCH ×4 (08:31→19:10)
[2021-04-21] MEDS ORDERED: METOPROLOL TARTRATE 12.5 MG TAB PO SCH (09:00)
[2021-04-21] MEDS ORDERED: bisacodyL 10 MG SUPP RECTAL PRN (09:00)
[2021-04-21] MEDS ORDERED: ATORVASTATIN 40 MG TAB PO SCH (09:00)
[2021-04-21] MEDS ORDERED: MAGNESIUM HYDROXIDE 2,400 MG/10 ML CUP PO PRN (09:00)
[2021-04-21] MEDS ORDERED: PANTOPRAZOLE 40 MG/10 ML VIAL IVP SCH (09:00)
[2021-04-21 09:59] LABS: Glucose,Whole Blood 156 mg/dL (75-99)
[2021-04-21] MEDS: amLODIPine 2.5 MG TAB PO SCH (10:11)
[2021-04-21] MEDS: MUPIROCIN 2% OINT 22 GM TUBE NASAL SCH ×2 (10:11→21:01)
[2021-04-21 11:00] LABS: Glucose,Whole Blood 134 mg/dL (75-99)
--- NOTE | 2021-04-21 11:04 | P.PN ---
Subjective Progress Note Date: 04/21/21 Pt doing well s/p 5v CABG. NSR, BP stable, mentation good, minimum oxygen requirement. C/o pain at site of chest tubes and sternotomy, well controlled with norco. Objective - Vital Signs Vital signs: Vital Signs Temp 99.0 F 04/21/21 08:00 Pulse 90 04/21/21 10:00 Resp 27 H 04/21/21 10:00 BP 126/59 04/21/21 10:00 Pulse Ox 96 04/21/21 10:00 Intake & Output 04/20/21 04/21/21 04/21/21 18:59 06:59 18:59 Intake Total 480.920 7528.634 207.614 Output Total 2695 1460 145 Balance -2226.956 -46.366 62.614 Weight 94.8 kg Intake: IV 455.5 1211.0 207 .9 150 600 150 ACETAMINOPHEN IV (For NPO 100 ) 1,000 mg In Empty Bag 1 bag @ 400 mls/hr IVPB Q6HR [facility] Rx#:[id number] Albumin Human 5% 250 ml 250 In Empty Bag 1 bag @ 250 mls/hr IVPB Q1HR PRN Rx#: [id number] Cardiac Output 70 150 30 Nitroglycerin-D5w Pmx 50 4.5 3.0 mg In Dextrose/Water 1 250ml.bag @ 5 MCG/MIN 1.5 mls/hr IV .Q24H [facility] Rx#: [id number] Potassium Chloride 20 meq 100 In Water For Injection 1 100ml.bag @ 50 mls/hr IVPB ONCE STA Rx#: [id number] Pressure Bags 27 108 27 Intake, IV Titration 12.544 2.634 0.614 Amount Clevidipine Butyrate 25 1.400 mg In Empty Bag 1 bag @ 1 MG/HR 2 mls/hr IV .Q24H [facility] Rx#:[id number] Insulin Regular 100 unit 2.634 0.614 In Sodium Chloride 0.9% 100 ml @ Per Protocol IV .Q0M [facility] Rx#:[id number] propofoL 1,000 mg In 11.144 Empty Bag 1 bag @ Titrate IV .Q0M [facility] Rx#: [id number] Oral 200 Output: Chest Tube Drainage 395 450 70 Left Pleural 250 260 0 Mediastinal X 2 120 130 30 Right Pleural 25 60 40 Drainage 20 Left Arm 20 Urine 1100 990 75 Estimated Blood Loss 1200 Other: Voiding Method Indwelling Catheter Indwelling Catheter Indwelling Catheter ABP, PAP, CO, CI - Last Documented Arterial Blood Pressure 112/52 Pulmonary Artery Pressure 25/7 Cardiac Output 4.6 Cardiac Index 2.1 - Exam Gen: awake, alert HEENT: normocephalic, atraumatic, good hearing acuity, moist mucous membranes Resp: good air exchange, breathing comfortably with no accessory muscle use CVS: good distal perfusion x 4, GI: soft, NTTP, ND : no SPT, no CVAT, montoya catheter not present MSK: no pitting edema, no clubbing Neuro: non-focal, moving all extremities Psych: cooperative, euthymic mood - Labs CBC & Chem 7: 04/21/21 03:55 04/21/21 03:55 Labs: Abnormal Lab Results - Last 24 Hours (Table) 04/19/21 04/20/21 04/20/21 Range/Units 15:51 09:27 11:38 RBC (4.30-5.90) m/uL Hgb (13.0-17.5) gm/dL Hct (39.0-53.0) % Neutrophils # (1.3-7.7) k/uL Lymphocytes # (1.0-4.8) k/uL APTT (22.0-30.0) sec ABG pO2 277 H 137 H (83-108) mmHg ABG HCO3 26 H (21-25) mmol/L ABG Total CO2 27 H 26 H (19-24) mmol/L ABG O2 Saturation 100.0 H 99.3 H (94-97) % ABG Hematocrit 50 H (34.0-46.0) % ABG Potassium 4.6 H (3.4-4.5) mmol/L ABG Ionized Calcium (4.5-5.3) mg/dL ABG Glucose 112 H (75-99) mg/dL ABG Lactic Acid (0.5-1.6) mmol/L Hemoglobin (13.0-17.5) gm/dL Sodium (137-145) mmol/L Chloride (98-107) mmol/L Glucose (74-99) mg/dL POC Glucose (mg/dL) (75-99) mg/dL Calcium (8.4-10.2) mg/dL Magnesium (1.6-2.3) mg/dL AST (17-59) U/L Total Protein (6.3-8.2) g/dL Albumin (3.5-5.0) g/dL Arterial Blood Potassium 4.6 H (3.4-4.5) mmol/L Arterial Blood Glucose 112 H (75-99) mg/dL Crossmatch See Detail 04/20/21 04/20/21 04/20/21 Range/Units 12:54 13:30 14:10 RBC (4.30-5.90) m/uL Hgb (13.0-17.5) gm/dL Hct (39.0-53.0) % Neutrophils # (1.3-7.7) k/uL Lymphocytes # (1.0-4.8) k/uL APTT (22.0-30.0) sec ABG pO2 >420 H 297 H 418 H (83-108) mmHg ABG HCO3 (21-25) mmol/L ABG Total CO2 25 H 25 H 26 H (19-24) mmol/L ABG O2 Saturation 100.0 H 100.0 H 100.0 H (94-97) % ABG Hematocrit 33 L (34.0-46.0) % ABG Potassium 5.2 H 5.2 H (3.4-4.5) mmol/L ABG Ionized Calcium 4.1 L 4.1 L 4.1 L (4.5-5.3) mg/dL ABG Glucose 110 H 110 H 111 H (75-99) mg/dL ABG Lactic Acid (0.5-1.6) mmol/L Hemoglobin 11.6 L 11.3 L 10.7 L (13.0-17.5) gm/dL Sodium (137-145) mmol/L Chloride (98-107) mmol/L Glucose (74-99) mg/dL POC Glucose (mg/dL) (75-99) mg/dL Calcium (8.4-10.2) mg/dL Magnesium (1.6-2.3) mg/dL AST (17-59) U/L Total Protein (6.3-8.2) g/dL Albumin (3.5-5.0) g/dL Arterial Blood Potassium 5.2 H 5.2 H (3.4-4.5) mmol/L Arterial Blood Glucose 110 H 110 H 111 H (75-99) mg/dL Crossmatch 04/20/21 04/20/21 04/20/21 Range/Units 14:44 16:04 16:37 RBC 3.82 L (4.30-5.90) m/uL Hgb 12.2 L D (13.0-17.5) gm/dL Hct 33.6 L (39.0-53.0) % Neutrophils # (1.3-7.7) k/uL Lymphocytes # 0.8 L (1.0-4.8) k/uL APTT (22.0-30.0) sec ABG pO2 319 H (83-108) mmHg ABG HCO3 (21-25) mmol/L ABG Total CO2 27 H 26 H (19-24) mmol/L ABG O2 Saturation 100.0 H 98.6 H (94-97) % ABG Hematocrit 32 L (34.0-46.0) % ABG Potassium 5.1 H (3.4-4.5) mmol/L ABG Ionized Calcium 4.1 L 4.2 L (4.5-5.3) mg/dL ABG Glucose 113 H 109 H (75-99) mg/dL ABG Lactic Acid 1.7 H (0.5-1.6) mmol/L Hemoglobin 11.3 L 10.6 L (13.0-17.5) gm/dL Sodium (137-145) mmol/L Chloride (98-107) mmol/L Glucose (74-99) mg/dL POC Glucose (mg/dL) (75-99) mg/dL Calcium (8.4-10.2) mg/dL Magnesium (1.6-2.3) mg/dL AST (17-59) U/L Total Protein (6.3-8.2) g/dL Albumin (3.5-5.0) g/dL Arterial Blood Potassium 5.1 H (3.4-4.5) mmol/L Arterial Blood Glucose 113 H 109 H (75-99) mg/dL Crossmatch 04/20/21 04/20/21 04/20/21 Range/Units 16:37 16:37 16:38 RBC (4.30-5.90) m/uL Hgb (13.0-17.5) gm/dL Hct (39.0-53.0) % Neutrophils # (1.3-7.7) k/uL Lymphocytes # (1.0-4.8) k/uL APTT 41.2 H (22.0-30.0) sec ABG pO2 (83-108) mmHg ABG HCO3 26 H (21-25) mmol/L ABG Total CO2 28 H (19-24) mmol/L ABG O2 Saturation 98.0 H (94-97) % ABG Hematocrit (34.0-46.0) % ABG Potassium (3.4-4.5) mmol/L ABG Ionized Calcium (4.5-5.3) mg/dL ABG Glucose (75-99) mg/dL ABG Lactic Acid (0.5-1.6) mmol/L Hemoglobin (13.0-17.5) gm/dL Sodium (137-145) mmol/L Chloride 108 H (98-107) mmol/L Glucose 106 H (74-99) mg/dL POC Glucose (mg/dL) (75-99) mg/dL Calcium 8.3 L (8.4-10.2) mg/dL Magnesium 2.6 H (1.6-2.3) mg/dL AST (17-59) U/L Total Protein 4.6 L (6.3-8.2) g/dL Albumin 2.6 L (3.5-5.0) g/dL Arterial Blood Potassium (3.4-4.5) mmol/L Arterial Blood Glucose (75-99) mg/dL Crossmatch 04/20/21 04/20/21 04/20/21 Range/Units 16:39 17:00 18:06 RBC (4.30-5.90) m/uL Hgb (13.0-17.5) gm/dL Hct (39.0-53.0) % Neutrophils # (1.3-7.7) k/uL Lymphocytes # (1.0-4.8) k/uL APTT (22.0-30.0) sec ABG pO2 (83-108) mmHg ABG HCO3 (21-25) mmol/L ABG Total CO2 (19-24) mmol/L ABG O2 Saturation (94-97) % ABG Hematocrit (34.0-46.0) % ABG Potassium (3.4-4.5) mmol/L ABG Ionized Calcium (4.5-5.3) mg/dL ABG Glucose (75-99) mg/dL ABG Lactic Acid (0.5-1.6) mmol/L Hemoglobin (13.0-17.5) gm/dL Sodium (137-145) mmol/L Chloride (98-107) mmol/L Glucose (74-99) mg/dL POC Glucose (mg/dL) 110 H 107 H 119 H (75-99) mg/dL Calcium (8.4-10.2) mg/dL Magnesium (1.6-2.3) mg/dL AST (17-59) U/L Total Protein (6.3-8.2) g/dL Albumin (3.5-5.0) g/dL Arterial Blood Potassium (3.4-4.5) mmol/L Arterial Blood Glucose (75-99) mg/dL Crossmatch 04/20/21 04/20/21 04/20/21 Range/Units 19:01 19:24 19:24 RBC 4.16 L (4.30-5.90) m/uL Hgb (13.0-17.5) gm/dL Hct 37.6 L (39.0-53.0) % Neutrophils # 8.8 H (1.3-7.7) k/uL Lymphocytes # 0.5 L (1.0-4.8) k/uL APTT (22.0-30.0) sec ABG pO2 (83-108) mmHg ABG HCO3 (21-25) mmol/L ABG Total CO2 (19-24) mmol/L ABG O2 Saturation (94-97) % ABG Hematocrit (34.0-46.0) % ABG Potassium (3.4-4.5) mmol/L ABG Ionized Calcium (4.5-5.3) mg/dL ABG Glucose (75-99) mg/dL ABG Lactic Acid (0.5-1.6) mmol/L Hemoglobin (13.0-17.5) gm/dL Sodium 136 L (137-145) mmol/L Chloride (98-107) mmol/L Glucose 154 H (74-99) mg/dL POC Glucose (mg/dL) 149 H (75-99) mg/dL Calcium 8.2 L (8.4-10.2) mg/dL Magnesium (1.6-2.3) mg/dL AST (17-59) U/L Total Protein (6.3-8.2) g/dL Albumin (3.5-5.0) g/dL Arterial Blood Potassium (3.4-4.5) mmol/L Arterial Blood Glucose (75-99) mg/dL Crossmatch 04/20/21 04/20/21 04/20/21 Range/Units 19:57 20:38 22:16 RBC 3.84 L (4.30-5.90) m/uL Hgb 12.1 L (13.0-17.5) gm/dL Hct 34.7 L (39.0-53.0) % Neutrophils # (1.3-7.7) k/uL Lymphocytes # 0.4 L (1.0-4.8) k/uL APTT (22.0-30.0) sec ABG pO2 (83-108) mmHg ABG HCO3 (21-25) mmol/L ABG Total CO2 25 H (19-24) mmol/L ABG O2 Saturation 98.3 H (94-97) % ABG Hematocrit (34.0-46.0) % ABG Potassium (3.4-4.5) mmol/L ABG Ionized Calcium (4.5-5.3) mg/dL ABG Glucose (75-99) mg/dL ABG Lactic Acid (0.5-1.6) mmol/L Hemoglobin (13.0-17.5) gm/dL Sodium (137-145) mmol/L Chloride (98-107) mmol/L Glucose (74-99) mg/dL POC Glucose (mg/dL) 143 H (75-99) mg/dL Calcium (8.4-10.2) mg/dL Magnesium (1.6-2.3) mg/dL AST (17-59) U/L Total Protein (6.3-8.2) g/dL Albumin (3.5-5.0) g/dL Arterial Blood Potassium (3.4-4.5) mmol/L Arterial Blood Glucose (75-99) mg/dL Crossmatch 04/20/21 04/20/21 04/21/21 Range/Units 22:18 23:13 00:16 RBC (4.30-5.90) m/uL Hgb (13.0-17.5) gm/dL Hct (39.0-53.0) % Neutrophils # (1.3-7.7) k/uL Lymphocytes # (1.0-4.8) k/uL APTT (22.0-30.0) sec ABG pO2 (83-108) mmHg ABG HCO3 (21-25) mmol/L ABG Total CO2 (19-24) mmol/L ABG O2 Saturation (94-97) % ABG Hematocrit (34.0-46.0) % ABG Potassium (3.4-4.5) mmol/L ABG Ionized Calcium (4.5-5.3) mg/dL ABG Glucose (75-99) mg/dL ABG Lactic Acid (0.5-1.6) mmol/L Hemoglobin (13.0-17.5) gm/dL Sodium (137-145) mmol/L Chloride (98-107) mmol/L Glucose (74-99) mg/dL POC Glucose (mg/dL) 121 H 116 H 113 H (75-99) mg/dL Calcium (8.4-10.2) mg/dL Magnesium (1.6-2.3) mg/dL AST (17-59) U/L Total Protein (6.3-8.2) g/dL Albumin (3.5-5.0) g/dL Arterial Blood Potassium (3.4-4.5) mmol/L Arterial Blood Glucose (75-99) mg/dL Crossmatch 04/21/21 04/21/21 04/21/21 Range/Units 01:23 02:20 02:58 RBC (4.30-5.90) m/uL Hgb (13.0-17.5) gm/dL Hct (39.0-53.0) % Neutrophils # (1.3-7.7) k/uL Lymphocytes # (1.0-4.8) k/uL APTT (22.0-30.0) sec ABG pO2 (83-108) mmHg ABG HCO3 (21-25) mmol/L ABG Total CO2 (19-24) mmol/L ABG O2 Saturation (94-97) % ABG Hematocrit (34.0-46.0) % ABG Potassium (3.4-4.5) mmol/L ABG Ionized Calcium (4.5-5.3) mg/dL ABG Glucose (75-99) mg/dL ABG Lactic Acid (0.5-1.6) mmol/L Hemoglobin (13.0-17.5) gm/dL Sodium (137-145) mmol/L Chloride (98-107) mmol/L Glucose (74-99) mg/dL POC Glucose (mg/dL) 137 H 135 H 127 H (75-99) mg/dL Calcium (8.4-10.2) mg/dL Magnesium (1.6-2.3) mg/dL AST (17-59) U/L Total Protein (6.3-8.2) g/dL Albumin (3.5-5.0) g/dL Arterial Blood Potassium (3.4-4.5) mmol/L Arterial Blood Glucose (75-99) mg/dL Crossmatch 04/21/21 04/21/21 04/21/21 Range/Units 03:55 03:55 03:58 RBC 3.71 L (4.30-5.90) m/uL Hgb 11.8 L (13.0-17.5) gm/dL Hct 33.5 L (39.0-53.0) % Neutrophils # (1.3-7.7) k/uL Lymphocytes # 0.5 L (1.0-4.8) k/uL APTT (22.0-30.0) sec ABG pO2 (83-108) mmHg ABG HCO3 (21-25) mmol/L ABG Total CO2 (19-24) mmol/L ABG O2 Saturation (94-97) % ABG Hematocrit (34.0-46.0) % ABG Potassium (3.4-4.5) mmol/L ABG Ionized Calcium (4.5-5.3) mg/dL ABG Glucose (75-99) mg/dL ABG Lactic Acid (0.5-1.6) mmol/L Hemoglobin (13.0-17.5) gm/dL Sodium 135 L (137-145) mmol/L Chloride (98-107) mmol/L Glucose 121 H (74-99) mg/dL POC Glucose (mg/dL) 123 H (75-99) mg/dL Calcium (8.4-10.2) mg/dL Magnesium (1.6-2.3) mg/dL AST 61 H (17-59) U/L Total Protein 5.0 L (6.3-8.2) g/dL Albumin 3.0 L (3.5-5.0) g/dL Arterial Blood Potassium (3.4-4.5) mmol/L Arterial Blood Glucose (75-99) mg/dL Crossmatch 04/21/21 04/21/21 04/21/21 Range/Units 05:04 06:05 07:01 RBC (4.30-5.90) m/uL Hgb (13.0-17.5) gm/dL Hct (39.0-53.0) % Neutrophils # (1.3-7.7) k/uL Lymphocytes # (1.0-4.8) k/uL APTT (22.0-30.0) sec ABG pO2 (83-108) mmHg ABG HCO3 (21-25) mmol/L ABG Total CO2 (19-24) mmol/L ABG O2 Saturation (94-97) % ABG Hematocrit (34.0-46.0) % ABG Potassium (3.4-4.5) mmol/L ABG Ionized Calcium (4.5-5.3) mg/dL ABG Glucose (75-99) mg/dL ABG Lactic Acid (0.5-1.6) mmol/L Hemoglobin (13.0-17.5) gm/dL Sodium (137-145) mmol/L Chloride (98-107) mmol/L Glucose (74-99) mg/dL POC Glucose (mg/dL) 122 H 123 H 131 H (75-99) mg/dL Calcium (8.4-10.2) mg/dL Magnesium (1.6-2.3) mg/dL AST (17-59) U/L Total Protein (6.3-8.2) g/dL Albumin (3.5-5.0) g/dL Arterial Blood Potassium (3.4-4.5) mmol/L Arterial Blood Glucose (75-99) mg/dL Crossmatch 04/21/21 04/21/21 Range/Units 07:53 09:58 RBC (4.30-5.90) m/uL Hgb (13.0-17.5) gm/dL Hct (39.0-53.0) % Neutrophils # (1.3-7.7) k/uL Lymphocytes # (1.0-4.8) k/uL APTT (22.0-30.0) sec ABG pO2 (83-108) mmHg ABG HCO3 (21-25) mmol/L ABG Total CO2 (19-24) mmol/L ABG O2 Saturation (94-97) % ABG Hematocrit (34.0-46.0) % ABG Potassium (3.4-4.5) mmol/L ABG Ionized Calcium (4.5-5.3) mg/dL ABG Glucose (75-99) mg/dL ABG Lactic Acid (0.5-1.6) mmol/L Hemoglobin (13.0-17.5) gm/dL Sodium (137-145) mmol/L Chloride (98-107) mmol/L Glucose (74-99) mg/dL POC Glucose (mg/dL) 152 H 156 H (75-99) mg/dL Calcium (8.4-10.2) mg/dL Magnesium (1.6-2.3) mg/dL AST (17-59) U/L Total Protein (6.3-8.2) g/dL Albumin (3.5-5.0) g/dL Arterial Blood Potassium (3.4-4.5) mmol/L Arterial Blood Glucose (75-99) mg/dL Crossmatch Microbiology - Last 24 Hours (Table) 04/18/21 21:33 Nasal Screen MRSA/MSSA - Final Nasal Swab Staphylococcus aureus,Not MRSA Assessment and Plan Assessment: 1. Non-ST elevation WI, s/p CABG on 04/20 - On aspirin, plavix - Started on Lipitor 80 mg daily and metoprolol 25 mg twice a day. 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 - Echocardiogram ordered, shows normal EF 55-60%, no WMA, mild MR/TR, no diastolic dysfunction. - Continue telemetry monitoring and trend troponin. - CT surgery consulted, s/p CABG on 04/20. - Started on amiodarone, amlodipine 2. Elevated blood pressure with no known history of hypertension, started the patient on metoprolol, amlodipine. Continue to monitor blood pressure and adjust regimen as needed. 3. Diet-controlled hyperlipidemia, on atorvastatin.
--- NOTE | 2021-04-21 11:37 | P.PN ---
Subjective This is a pleasant 60-year-old male with no significant past medical history other than his father had coronary artery disease in his 60s. The patient presented to the hospital last night with acute chest pain and was found to have a non-ST elevated myocardial infarction. Cardiac catheterization revealed critical 2 vessel disease involving the RCA and LAD which was deemed complicated with multiple lesions and straddling LAD and diagonal branches. Therefore he was recommended to be evaluated for bypass grafting. He is seen and examined resting comfortably lying flat in bed in no acute distress. He denies symptoms of chest discomfort, shortness of breath, dizziness or palpitations. He states at times he does feel a burning sensation in the epigastric region but is unsure if this is related to reflux or chest discomfort. He did refuse Nitropaste this morning as a cost a pretty significant headache. Blood pressure 136/91 heart rate 62 afebrile maintaining oxygen saturation on room air. Laboratory data reviewed, CBC unremarkable, sodium 136, potassium 4.4, creatinine 0.88, LDL 122, HDL 37 and TSH 3.55. Echocardiogram obtained revealed preserved LV systolic function with ejection fraction 55-60%, normal diastolic filling pattern, mild MR and mild TR. 04/21/2021 Pt is s/p quintuple bypass grafting with OLIVER sequentially to the diet, then to the LAD, left radial artery from the aorta to the first OM then to the second OM, reverse SVG from aorta to the RCA and exclusion of the left atrial appendage. He is sitting up in the recliner chair in no acute distress. He has chest tubes in place and heart hugger. He states he is feeling some strain across his chest like a puling, likely post surgical type discomfort. He denies shortness of breath. He feels somewhat light headed but is attributing this to the norco. Blood pressure 126/59 heart rate 90 afebrile maintaining oxygen saturation on nasal cannula. Laboratory data reviewed, WBC 7.8, hemoglobin 11.8, platelets 152, sodium 135, potassium 4.4, creatinine 0.83 and magnesium 2.1. Cardiac output is 4.8, CVP is 4. PA pressure 25/10. GENERAL: Well-appearing, well-nourished and in no acute distress. Mediastinal/left/right pleural chest tubes in place. Right IJ [place] in place. Right radial art line in place. NECK: Supple without JVD or thyromegaly. LUNGS: Breath sounds clear to auscultation bilaterally. Respiration equal and unlabored. No wheezes, rales or rhonchi. HEART: Regular rate and rhythm without murmurs, rubs or gallops. S1 and S2 heard. EXTREMITIES: Normal range of motion, no edema. No clubbing or cyanosis. Peripheral pulses intact. ASSESSMENT NSTEMI Dyslipidemia Coronary artery disease status post bypass grafting PLAN Continue current medical regimen. Encourage incentive spirometer use. Increase activity as tolerated. Further management per CT surgery. We will continue to follow and make recommendations accordingly. Nurse Practitioner note has been reviewed, I agree with a documented findings and plan of care. Patient was seen and examined. Objective - Vital Signs Vital signs: Vital Signs Temp 99.0 F 04/21/21 08:00 Pulse 90 04/21/21 10:00 Resp 27 H 04/21/21 10:00 BP 126/59 04/21/21 10:00 Pulse Ox 96 04/21/21 10:00 Intake & Output 04/20/21 04/21/21 04/21/21 18:59 06:59 18:59 Intake Total 534.695 3215.634 207.614 Output Total 2695 1460 145 Balance -2226.956 -46.366 62.614 Weight 94.8 kg Intake: IV 455.5 1211.0 207 .9 150 600 150 ACETAMINOPHEN IV (For NPO 100 ) 1,000 mg In Empty Bag 1 bag @ 400 mls/hr IVPB Q6HR [facility] Rx#:[id number] Albumin Human 5% 250 ml 250 In Empty Bag 1 bag @ 250 mls/hr IVPB Q1HR PRN Rx#: [id number] Cardiac Output 70 150 30 Nitroglycerin-D5w Pmx 50 4.5 3.0 mg In Dextrose/Water 1 250ml.bag @ 5 MCG/MIN 1.5 mls/hr IV .Q24H [facility] Rx#: [id number] Potassium Chloride 20 meq 100 In Water For Injection 1 100ml.bag @ 50 mls/hr IVPB ONCE STA Rx#: [id number] Pressure Bags 27 108 27 Intake, IV Titration 12.544 2.634 0.614 Amount Clevidipine Butyrate 25 1.400 mg In Empty Bag 1 bag @ 1 MG/HR 2 mls/hr IV .Q24H [facility] Rx#:[id number] Insulin Regular 100 unit 2.634 0.614 In Sodium Chloride 0.9% 100 ml @ Per Protocol IV .Q0M [facility] Rx#:[id number] propofoL 1,000 mg In 11.144 Empty Bag 1 bag @ Titrate IV .Q0M [facility] Rx#: [id number] Oral 200 Output: Chest Tube Drainage 395 450 70 Left Pleural 250 260 0 Mediastinal X 2 120 130 30 Right Pleural 25 60 40 Drainage 20 Left Arm 20 Urine 1100 990 75 Estimated Blood Loss 1200 Other: Voiding Method Indwelling Catheter Indwelling Catheter Indwelling Catheter ABP, PAP, CO, CI - Last Documented Arterial Blood Pressure 112/52 Pulmonary Artery Pressure 25/7 Cardiac Output 4.6 Cardiac Index 2.1 - Labs CBC & Chem 7: 04/21/21 03:55 04/21/21 03:55 Labs: Abnormal Lab Results - Last 24 Hours (Table) 04/19/21 04/20/21 04/20/21 Range/Units 15:51 09:27 11:38 RBC (4.30-5.90) m/uL Hgb (13.0-17.5) gm/dL Hct (39.0-53.0) % Neutrophils # (1.3-7.7) k/uL Lymphocytes # (1.0-4.8) k/uL APTT (22.0-30.0) sec ABG pO2 277 H 137 H (83-108) mmHg ABG HCO3 26 H (21-25) mmol/L ABG Total CO2 27 H 26 H (19-24) mmol/L ABG O2 Saturation 100.0 H 99.3 H (94-97) % ABG Hematocrit 50 H (34.0-46.0) % ABG Potassium 4.6 H (3.4-4.5) mmol/L ABG Ionized Calcium (4.5-5.3) mg/dL ABG Glucose 112 H (75-99) mg/dL ABG Lactic Acid (0.5-1.6) mmol/L Hemoglobin (13.0-17.5) gm/dL Sodium (137-145) mmol/L Chloride (98-107) mmol/L Glucose (74-99) mg/dL POC Glucose (mg/dL) (75-99) mg/dL Calcium (8.4-10.2) mg/dL Magnesium (1.6-2.3) mg/dL AST (17-59) U/L Total Protein (6.3-8.2) g/dL Albumin (3.5-5.0) g/dL Arterial Blood Potassium 4.6 H (3.4-4.5) mmol/L Arterial Blood Glucose 112 H (75-99) mg/dL Crossmatch See Detail 04/20/21 04/20/21 04/20/21 Range/Units 12:54 13:30 14:10 RBC (4.30-5.90) m/uL Hgb (13.0-17.5) gm/dL Hct (39.0-53.0) % Neutrophils # (1.3-7.7) k/uL Lymphocytes # (1.0-4.8) k/uL APTT (22.0-30.0) sec ABG pO2 >420 H 297 H 418 H (83-108) mmHg ABG HCO3 (21-25) mmol/L ABG Total CO2 25 H 25 H 26 H (19-24) mmol/L ABG O2 Saturation 100.0 H 100.0 H 100.0 H (94-97) % ABG Hematocrit 33 L (34.0-46.0) % ABG Potassium 5.2 H 5.2 H (3.4-4.5) mmol/L ABG Ionized Calcium 4.1 L 4.1 L 4.1 L (4.5-5.3) mg/dL ABG Glucose 110 H 110 H 111 H (75-99) mg/dL ABG Lactic Acid (0.5-1.6) mmol/L Hemoglobin 11.6 L 11.3 L 10.7 L (13.0-17.5) gm/dL Sodium (137-145) mmol/L Chloride (98-107) mmol/L Glucose (74-99) mg/dL POC Glucose (mg/dL) (75-99) mg/dL Calcium (8.4-10.2) mg/dL Magnesium (1.6-2.3) mg/dL AST (17-59) U/L Total Protein (6.3-8.2) g/dL Albumin (3.5-5.0) g/dL Arterial Blood Potassium 5.2 H 5.2 H (3.4-4.5) mmol/L Arterial Blood Glucose 110 H 110 H 111 H (75-99) mg/dL Crossmatch 04/20/21 04/20/21 04/20/21 Range/Units 14:44 16:04 16:37 RBC 3.82 L (4.30-5.90) m/uL Hgb 12.2 L D (13.0-17.5) gm/dL Hct 33.6 L (39.0-53.0) % Neutrophils # (1.3-7.7) k/uL Lymphocytes # 0.8 L (1.0-4.8) k/uL APTT (22.0-30.0) sec ABG pO2 319 H (83-108) mmHg ABG HCO3 (21-25) mmol/L ABG Total CO2 27 H 26 H (19-24) mmol/L ABG O2 Saturation 100.0 H 98.6 H (94-97) % ABG Hematocrit 32 L (34.0-46.0) % ABG Potassium 5.1 H (3.4-4.5) mmol/L ABG Ionized Calcium 4.1 L 4.2 L (4.5-5.3) mg/dL ABG Glucose 113 H 109 H (75-99) mg/dL ABG Lactic Acid 1.7 H (0.5-1.6) mmol/L Hemoglobin 11.3 L 10.6 L (13.0-17.5) gm/dL Sodium (137-145) mmol/L Chloride (98-107) mmol/L Glucose (74-99) mg/dL POC Glucose (mg/dL) (75-99) mg/dL Calcium (8.4-10.2) mg/dL Magnesium (1.6-2.3) mg/dL AST (17-59) U/L Total Protein (6.3-8.2) g/dL Albumin (3.5-5.0) g/dL Arterial Blood Potassium 5.1 H (3.4-4.5) mmol/L Arterial Blood Glucose 113 H 109 H (75-99) mg/dL Crossmatch 04/20/21 04/20/21 04/20/21 Range/Units 16:37 16:37 16:38 RBC (4.30-5.90) m/uL Hgb (13.0-17.5) gm/dL Hct (39.0-53.0) % Neutrophils # (1.3-7.7) k/uL Lymphocytes # (1.0-4.8) k/uL APTT 41.2 H (22.0-30.0) sec ABG pO2 (83-108) mmHg ABG HCO3 26 H (21-25) mmol/L ABG Total CO2 28 H (19-24) mmol/L ABG O2 Saturation 98.0 H (94-97) % ABG Hematocrit (34.0-46.0) % ABG Potassium (3.4-4.5) mmol/L ABG Ionized Calcium (4.5-5.3) mg/dL ABG Glucose (75-99) mg/dL ABG Lactic Acid (0.5-1.6) mmol/L Hemoglobin (13.0-17.5) gm/dL Sodium (137-145) mmol/L Chloride 108 H (98-107) mmol/L Glucose 106 H (74-99) mg/dL POC Glucose (mg/dL) (75-99) mg/dL Calcium 8.3 L (8.4-10.2) mg/dL Magnesium 2.6 H (1.6-2.3) mg/dL AST (17-59) U/L Total Protein 4.6 L (6.3-8.2) g/dL Albumin 2.6 L (3.5-5.0) g/dL Arterial Blood Potassium (3.4-4.5) mmol/L Arterial Blood Glucose (75-99) mg/dL Crossmatch 04/20/21 04/20/21 04/20/21 Range/Units 16:39 17:00 18:06 RBC (4.30-5.90) m/uL Hgb (13.0-17.5) gm/dL Hct (39.0-53.0) % Neutrophils # (1.3-7.7) k/uL Lymphocytes # (1.0-4.8) k/uL APTT (22.0-30.0) sec ABG pO2 (83-108) mmHg ABG HCO3 (21-25) mmol/L ABG Total CO2 (19-24) mmol/L ABG O2 Saturation (94-97) % ABG Hematocrit (34.0-46.0) % ABG Potassium (3.4-4.5) mmol/L ABG Ionized Calcium (4.5-5.3) mg/dL ABG Glucose (75-99) mg/dL ABG Lactic Acid (0.5-1.6) mmol/L Hemoglobin (13.0-17.5) gm/dL Sodium (137-145) mmol/L Chloride (98-107) mmol/L Glucose (74-99) mg/dL POC Glucose (mg/dL) 110 H 107 H 119 H (75-99) mg/dL Calcium (8.4-10.2) mg/dL Magnesium (1.6-2.3) mg/dL AST (17-59) U/L Total Protein (6.3-8.2) g/dL Albumin (3.5-5.0) g/dL Arterial Blood Potassium (3.4-4.5) mmol/L Arterial Blood Glucose (75-99) mg/dL Crossmatch 04/20/21 04/20/21 04/20/21 Range/Units 19:01 19:24 19:24 RBC 4.16 L (4.30-5.90) m/uL Hgb (13.0-17.5) gm/dL Hct 37.6 L (39.0-53.0) % Neutrophils # 8.8 H (1.3-7.7) k/uL Lymphocytes # 0.5 L (1.0-4.8) k/uL APTT (22.0-30.0) sec ABG pO2 (83-108) mmHg ABG HCO3 (21-25) mmol/L ABG Total CO2 (19-24) mmol/L ABG O2 Saturation (94-97) % ABG Hematocrit (34.0-46.0) % ABG Potassium (3.4-4.5) mmol/L ABG Ionized Calcium (4.5-5.3) mg/dL ABG Glucose (75-99) mg/dL ABG Lactic Acid (0.5-1.6) mmol/L Hemoglobin (13.0-17.5) gm/dL Sodium 136 L (137-145) mmol/L Chloride (98-107) mmol/L Glucose 154 H (74-99) mg/dL POC Glucose (mg/dL) 149 H (75-99) mg/dL Calcium 8.2 L (8.4-10.2) mg/dL Magnesium (1.6-2.3) mg/dL AST (17-59) U/L Total Protein (6.3-8.2) g/dL Albumin (3.5-5.0) g/dL Arterial Blood Potassium (3.4-4.5) mmol/L Arterial Blood Glucose (75-99) mg/dL Crossmatch 04/20/21 04/20/21 04/20/21 Range/Units 19:57 20:38 22:16 RBC 3.84 L (4.30-5.90) m/uL Hgb 12.1 L (13.0-17.5) gm/dL Hct 34.7 L (39.0-53.0) % Neutrophils # (1.3-7.7) k/uL Lymphocytes # 0.4 L (1.0-4.8) k/uL APTT (22.0-30.0) sec ABG pO2 (83-108) mmHg ABG HCO3 (21-25) mmol/L ABG Total CO2 25 H (19-24) mmol/L ABG O2 Saturation 98.3 H (94-97) % ABG Hematocrit (34.0-46.0) % ABG Potassium (3.4-4.5) mmol/L ABG Ionized Calcium (4.5-5.3) mg/dL ABG Glucose (75-99) mg/dL ABG Lactic Acid (0.5-1.6) mmol/L Hemoglobin (13.0-17.5) gm/dL Sodium (137-145) mmol/L Chloride (98-107) mmol/L Glucose (74-99) mg/dL POC Glucose (mg/dL) 143 H (75-99) mg/dL Calcium (8.4-10.2) mg/dL Magnesium (1.6-2.3) mg/dL AST (17-59) U/L Total Protein (6.3-8.2) g/dL Albumin (3.5-5.0) g/dL Arterial Blood Potassium (3.4-4.5) mmol/L Arterial Blood Glucose (75-99) mg/dL Crossmatch 04/20/21 04/20/21 04/21/21 Range/Units 22:18 23:13 00:16 RBC (4.30-5.90) m/uL Hgb (13.0-17.5) gm/dL Hct (39.0-53.0) % Neutrophils # (1.3-7.7) k/uL Lymphocytes # (1.0-4.8) k/uL APTT (22.0-30.0) sec ABG pO2 (83-108) mmHg ABG HCO3 (21-25) mmol/L ABG Total CO2 (19-24) mmol/L ABG O2 Saturation (94-97) % ABG Hematocrit (34.0-46.0) % ABG Potassium (3.4-4.5) mmol/L ABG Ionized Calcium (4.5-5.3) mg/dL ABG Glucose (75-99) mg/dL ABG Lactic Acid (0.5-1.6) mmol/L Hemoglobin (13.0-17.5) gm/dL Sodium (137-145) mmol/L Chloride (98-107) mmol/L Glucose (74-99) mg/dL POC Glucose (mg/dL) 121 H 116 H 113 H (75-99) mg/dL Calcium (8.4-10.2) mg/dL Magnesium (1.6-2.3) mg/dL AST (17-59) U/L Total Protein (6.3-8.2) g/dL Albumin (3.5-5.0) g/dL Arterial Blood Potassium (3.4-4.5) mmol/L Arterial Blood Glucose (75-99) mg/dL Crossmatch 04/21/21 04/21/21 04/21/21 Range/Units 01:23 02:20 02:58 RBC (4.30-5.90) m/uL Hgb (13.0-17.5) gm/dL Hct (39.0-53.0) % Neutrophils # (1.3-7.7) k/uL Lymphocytes # (1.0-4.8) k/uL APTT (22.0-30.0) sec ABG pO2 (83-108) mmHg ABG HCO3 (21-25) mmol/L ABG Total CO2 (19-24) mmol/L ABG O2 Saturation (94-97) % ABG Hematocrit (34.0-46.0) % ABG Potassium (3.4-4.5) mmol/L ABG Ionized Calcium (4.5-5.3) mg/dL ABG Glucose (75-99) mg/dL ABG Lactic Acid (0.5-1.6) mmol/L Hemoglobin (13.0-17.5) gm/dL Sodium (137-145) mmol/L Chloride (98-107) mmol/L Glucose (74-99) mg/dL POC Glucose (mg/dL) 137 H 135 H 127 H (75-99) mg/dL Calcium (8.4-10.2) mg/dL Magnesium (1.6-2.3) mg/dL AST (17-59) U/L Total Protein (6.3-8.2) g/dL Albumin (3.5-5.0) g/dL Arterial Blood Potassium (3.4-4.5) mmol/L Arterial Blood Glucose (75-99) mg/dL Crossmatch 04/21/21 04/21/21 04/21/21 Range/Units 03:55 03:55 03:58 RBC 3.71 L (4.30-5.90) m/uL Hgb 11.8 L (13.0-17.5) gm/dL Hct 33.5 L (39.0-53.0) % Neutrophils # (1.3-7.7) k/uL Lymphocytes # 0.5 L (1.0-4.8) k/uL APTT (22.0-30.0) sec ABG pO2 (83-108) mmHg ABG HCO3 (21-25) mmol/L ABG Total CO2 (19-24) mmol/L ABG O2 Saturation (94-97) % ABG Hematocrit (34.0-46.0) % ABG Potassium (3.4-4.5) mmol/L ABG Ionized Calcium (4.5-5.3) mg/dL ABG Glucose (75-99) mg/dL ABG Lactic Acid (0.5-1.6) mmol/L Hemoglobin (13.0-17.5) gm/dL Sodium 135 L (137-145) mmol/L Chloride (98-107) mmol/L Glucose 121 H (74-99) mg/dL POC Glucose (mg/dL) 123 H (75-99) mg/dL Calcium (8.4-10.2) mg/dL Magnesium (1.6-2.3) mg/dL AST 61 H (17-59) U/L Total Protein 5.0 L (6.3-8.2) g/dL Albumin 3.0 L (3.5-5.0) g/dL Arterial Blood Potassium (3.4-4.5) mmol/L Arterial Blood Glucose (75-99) mg/dL Crossmatch 04/21/21 04/21/21 04/21/21 Range/Units 05:04 06:05 07:01 RBC (4.30-5.90) m/uL Hgb (13.0-17.5) gm/dL Hct (39.0-53.0) % Neutrophils # (1.3-7.7) k/uL Lymphocytes # (1.0-4.8) k/uL APTT (22.0-30.0) sec ABG pO2 (83-108) mmHg ABG HCO3 (21-25) mmol/L ABG Total CO2 (19-24) mmol/L ABG O2 Saturation (94-97) % ABG Hematocrit (34.0-46.0) % ABG Potassium (3.4-4.5) mmol/L ABG Ionized Calcium (4.5-5.3) mg/dL ABG Glucose (75-99) mg/dL ABG Lactic Acid (0.5-1.6) mmol/L Hemoglobin (13.0-17.5) gm/dL Sodium (137-145) mmol/L Chloride (98-107) mmol/L Glucose (74-99) mg/dL POC Glucose (mg/dL) 122 H 123 H 131 H (75-99) mg/dL Calcium (8.4-10.2) mg/dL Magnesium (1.6-2.3) mg/dL AST (17-59) U/L Total Protein (6.3-8.2) g/dL Albumin (3.5-5.0) g/dL Arterial Blood Potassium (3.4-4.5) mmol/L Arterial Blood Glucose (75-99) mg/dL Crossmatch 04/21/21 04/21/21 04/21/21 Range/Units 07:53 09:58 10:59 RBC (4.30-5.90) m/uL Hgb (13.0-17.5) gm/dL Hct (39.0-53.0) % Neutrophils # (1.3-7.7) k/uL Lymphocytes # (1.0-4.8) k/uL APTT (22.0-30.0) sec ABG pO2 (83-108) mmHg ABG HCO3 (21-25) mmol/L ABG Total CO2 (19-24) mmol/L ABG O2 Saturation (94-97) % ABG Hematocrit (34.0-46.0) % ABG Potassium (3.4-4.5) mmol/L ABG Ionized Calcium (4.5-5.3) mg/dL ABG Glucose (75-99) mg/dL ABG Lactic Acid (0.5-1.6) mmol/L Hemoglobin (13.0-17.5) gm/dL Sodium (137-145) mmol/L Chloride (98-107) mmol/L Glucose (74-99) mg/dL POC Glucose (mg/dL) 152 H 156 H 134 H (75-99) mg/dL Calcium (8.4-10.2) mg/dL Magnesium (1.6-2.3) mg/dL AST (17-59) U/L Total Protein (6.3-8.2) g/dL Albumin (3.5-5.0) g/dL Arterial Blood Potassium (3.4-4.5) mmol/L Arterial Blood Glucose (75-99) mg/dL Crossmatch Microbiology - Last 24 Hours (Table) 04/18/21 21:33 Nasal Screen MRSA/MSSA - Final Nasal Swab Staphylococcus aureus,Not MRSA
[2021-04-21 12:10] LABS: Glucose,Whole Blood 108 mg/dL (75-99)
--- NOTE | 2021-04-21 12:51 | P.CNPUL ---
History of Present Illness Consult date: 04/21/21 Requesting physician: Tammi Obregon Reason for consult: other (Status post CABG.) Chief complaint: Status post CABG History of present illness: This is a 60-year-old white male primarily a patient of Dr. Lobato, admitted on 04/18/2021, his chief complaint was chest pain. Patient was seen by cardiology, and cardiac catheterization showed critical lesion involving RCA, and a critical lesion involving the LAD. His troponins and EKG findings were suggestive of non-ST elevation myocardial infarction, patient was seen by cardiac surgery on consultation, and on 04/20/2021, patient underwent quintuple multiple arterial coronary artery bypass grafting using OLIVER to diagonal then to left anterior d escending, left radial artery to the first up to marginal artery then to the second obtuse marginal artery and had reverse saphenous vein graft from the aorta to the RCA. Postoperatively, patient was sent to the ICU, and he was sent on mechanical ventilation. I was notified about this patient after hours, reviewed his chest x-ray, reviewed his ventilator settings, adjustments were made, and patient was successfully extubated at 20:10. Since extubation patient has been doing quite well, no clinical issues to mention overnight, I saw him this morning, the patient seems to be in no distress. He is on 2 L nasal cannula with O2 saturation of 95%. He is presently on IV fluid in the form of 0.9 normal saline at 50 mL per hour, insulin at 0.5 units per hour, nitroglycerin. His cardiac output was 7.3 cardiac index is 3.4. Chest x-ray showed minimal atelectasis, no evidence of active disease. No evidence of congestive heart failure or pneumonia. Patient is relatively asymptomatic and he is very compliant with his incentive spirometry, achieving almost 1000 mL. Patient is in sinus rhythm, hemodynamically stable, not requiring any inotropes or process. Review of Systems constitutional: Negative HEENT: Negative Pulmonary: Negative patient is lifelong nonsmoker. Cardiac: As noted in HPI. GI: Negative Genitourinary: Negative Musculoskeletal history of osteoarthritis Endocrine: Negative Hematologic: Negative Psychiatric: Negative Urologic: Negative Skin: Negative Past Medical History Past Medical History: Atrial Fibrillation, Hyperlipidemia, Osteoarthritis (OA) Additional Past Medical History / Comment(s): Chronic lower back pain History of Any Multi-Drug Resistant Organisms: None Reported Past Surgical History: Joint Replacement Additional Past Surgical History / Comment(s): TOTAL RIGHT AND LEFT HIP , GREAT TOE- BILATERAL SURGERY, and vasectomy. Past Anesthesia/Blood Transfusion Reactions: No Reported Reaction Additional Past Anesthesia/Blood Transfusion Reaction / Comment(s): NO REACTION WITH BLOOD TRANSFUSION Past Psychological History: No Psychological Hx Reported Smoking Status: Never smoker Past Alcohol Use History: Occasional Past Drug Use History: None Reported - Past Family History Father Family Medical History: Cancer, Myocardial Infarction ([place]) Additional Family Medical History / Comment(s): LIVER CANCER Mother Family Medical History: Congestive Heart Failure (CHF), CVA/TIA Additional Family Medical History / Comment(s): Rheumatic fever-VALVE REPLACEMENT Medications and Allergies Home Medications Medication Instructions Recorded Confirmed Type Naproxen Sodium [Aleve] 220 mg PO BID PRN 04/18/21 04/18/21 History Allergies Allergy/AdvReac Type Severity Reaction Status Date / Time No Known Allergies Allergy Verified 04/18/21 12:10 Physical Exam Vitals: Vital Signs Temp Pulse Resp BP Pulse Ox 04/21/21 12:18 93 04/21/21 12:10 92 04/21/21 12:06 91 30 H 101/79 93 L 04/21/21 11:30 89 16 100/59 94 L 04/21/21 11:00 87 20 108/73 96 04/21/21 10:30 88 18 108/68 93 L 04/21/21 10:00 90 27 H 126/59 96 04/21/21 09:30 93 22 95 04/21/21 09:00 89 17 96 04/21/21 08:47 96 04/21/21 08:34 86 96 04/21/21 08:30 89 9 L 95 04/21/21 08:00 99.0 F 87 17 95 04/21/21 07:30 90 22 96 04/21/21 07:00 98 16 96 04/21/21 06:30 98 21 96 04/21/21 06:00 101 H 28 H 138/90 95 04/21/21 05:30 102 H 13 98 04/21/21 05:00 89 16 98 04/21/21 04:30 98 15 97 04/21/21 04:00 100 24 99/74 96 04/21/21 03:30 98 15 99/74 97 04/21/21 03:23 16 04/21/21 03:00 101 H 16 96 04/21/21 02:30 100 15 97 04/21/21 02:00 111 H 15 97 04/21/21 01:30 105 H 14 97 04/21/21 01:00 104 H 14 98 04/21/21 00:30 105 H 10 L 98 04/21/21 00:26 104 H 7 L 89 L 04/21/21 00:15 104 H 17 98 04/21/21 00:00 99.1 F 113 H 29 H 98 04/20/21 23:45 105 H 6 L 99 04/20/21 23:30 112 H 14 99/74 95 04/20/21 23:15 109 H 26 H 99/74 97 04/20/21 23:00 111 H 27 H 98 04/20/21 22:45 107 H 18 98 04/20/21 22:30 106 H 15 98 04/20/21 22:15 108 H 16 97 04/20/21 22:00 109 H 11 L 98 04/20/21 21:45 107 H 13 97 04/20/21 21:30 108 H 14 99 04/20/21 21:15 112 H 15 98 04/20/21 21:00 111 H 12 98 04/20/21 20:45 110 H 22 98 04/20/21 20:31 110 H 04/20/21 20:30 106 H 18 99 04/20/21 20:24 105 H 04/20/21 20:19 94 L 04/20/21 20:15 105 H 21 97 04/20/21 20:00 98 17 94 L 04/20/21 19:45 92 15 99 04/20/21 19:30 95 19 99 04/20/21 19:15 99 23 96 04/20/21 19:00 89 15 96 04/20/21 18:45 84 12 98 04/20/21 18:30 86 12 95 04/20/21 18:15 88 13 98 04/20/21 18:00 85 12 98 04/20/21 17:45 104 H 20 97 04/20/21 17:30 77 10 L 97 04/20/21 17:15 78 12 97 04/20/21 17:00 80 12 98 04/20/21 16:45 81 12 97 04/20/21 16:30 80 12 Intake and Output 04/20/21 04/21/21 04/21/21 22:59 06:59 14:59 Intake Total 1084.044 744.634 356.536 Output Total 3425 730 355 Balance -2340.956 14.634 1.536 Intake: IV 1071.5 542 352 .9 350 400 280 ACETAMINOPHEN IV (For NPO 100 ) 1,000 mg In Empty Bag 1 bag @ 400 mls/hr IVPB Q6HR [facility] Rx#:[id number] Albumin Human 5% 250 ml 250 In Empty Bag 1 bag @ 250 mls/hr IVPB Q1HR PRN Rx#: [id number] Cardiac Output 150 70 30 Nitroglycerin-D5w Pmx 50 7.5 mg In Dextrose/Water 1 250ml.bag @ 5 MCG/MIN 1.5 mls/hr IV .Q24H [facility] Rx#: [id number] Potassium Chloride 20 meq 100 In Water For Injection 1 100ml.bag @ 50 mls/hr IVPB ONCE STA Rx#: [id number] Pressure Bags 63 72 42 Intake, IV Titration 12.544 2.634 4.536 Amount Clevidipine Butyrate 25 1.400 mg In Empty Bag 1 bag @ 1 MG/HR 2 mls/hr IV .Q24H [facility] Rx#:[id number] Insulin Regular 100 unit 2.634 4.536 In Sodium Chloride 0.9% 100 ml @ Per Protocol IV .Q0M [facility] Rx#:[id number] propofoL 1,000 mg In 11.144 Empty Bag 1 bag @ Titrate IV .Q0M [facility] Rx#: [id number] Oral 200 Output: Chest Tube Drainage 585 260 120 Left Pleural 320 190 50 Mediastinal X 2 190 60 30 Right Pleural 75 10 40 Drainage 20 Left Arm 20 Urine 1640 450 235 Estimated Blood Loss 1200 Other: Voiding Method Indwelling Catheter Indwelling Catheter Indwelling Catheter Weight 94.8 kg ABP, PAP, CO, CI - Last 8 Hours Arterial Blood Pressure 112/52 Arterial Blood Pressure 86/52 Arterial Blood Pressure 88/49 Arterial Blood Pressure 104/59 Arterial Blood Pressure 111/60 Arterial Blood Pressure 111/62 Arterial Blood Pressure 108/59 Arterial Blood Pressure 128/62 Arterial Blood Pressure 130/62 Pulmonary Artery Pressure 25/7 Pulmonary Artery Pressure 19/9 Pulmonary Artery Pressure 20/7 Pulmonary Artery Pressure 28/10 Pulmonary Artery Pressure 23/15 Pulmonary Artery Pressure 26/11 Pulmonary Artery Pressure 24/9 Pulmonary Artery Pressure 31/15 Pulmonary Artery Pressure 32/16 Cardiac Output 4.6 Cardiac Output 4.6 Cardiac Output 4.8 Cardiac Output 4.8 Cardiac Index 2.1 Cardiac Index 2.1 Cardiac Index 2.2 Cardiac Index 2.2 Physical Exam: Revealed 60-year-old white male in no distress. Sitting at a bedside chair, asymptomatic HEENT:[Neck is supple.] [No neck masses.] [No thyromegaly.] [No JVD.] Chest: Symmetrical chest expansion, crackles at the bases, no rhonchi and no wheezes. Patient is achieving anywhere between 750 ML to 1000 mL on incentive spirometer. Cardiac Exam: [Normal S1 and S2, no S3 gallop, no murmur.] Abdomen: [Soft, nontender, no megaly, no rebound, no guarding, normal bowel sounds.] Extremities: [No clubbing, no edema, no cyanosis.] Neurological Exam: [No focal neurologic deficit.] Alert and oriented 3. Psychiatric: Normal mood, affect and normal mental status examination. Results - Laboratory Findings CBC and BMP: 04/21/21 03:55 04/21/21 03:55 ABG ABG pH 7.39 (7.35-7.45) 04/20/21 19:57 ABG pCO2 40 mmHg (35-45) 04/20/21 19:57 ABG pO2 108 mmHg (83-108) 04/20/21 19:57 ABG O2 Saturation 98.3 % (94-97) H 04/20/21 19:57 PT/INR, D-dimer PT 11.4 sec (9.0-12.0) 04/20/21 16:37 INR 1.1 (<1.2) 04/20/21 16:37 Abnormal lab findings: Abnormal Labs 04/18/21 04/18/21 04/18/21 12:17 12:17 15:25 RBC Hgb Hct Neutrophils # Lymphocytes # 0.9 L APTT ABG pCO2 ABG pO2 ABG HCO3 ABG Total CO2 ABG O2 Saturation ABG Hematocrit ABG Potassium ABG Ionized Calcium ABG Glucose ABG Lactic Acid Hemoglobin Sodium Chloride Glucose POC Glucose (mg/dL) Calcium Magnesium AST Troponin I 0.165 H* 0.759 H* Total Protein Albumin HDL Cholesterol Arterial Blood Potassium Arterial Blood Glucose Ur Specific [place] Crossmatch 04/18/21 04/18/21 04/18/21 18:11 18:11 21:13 RBC Hgb Hct Neutrophils # Lymphocytes # APTT 45.8 H ABG pCO2 ABG pO2 ABG HCO3 ABG Total CO2 ABG O2 Saturation ABG Hematocrit ABG Potassium ABG Ionized Calcium ABG Glucose ABG Lactic Acid Hemoglobin Sodium Chloride Glucose POC Glucose (mg/dL) Calcium Magnesium AST Troponin I 1.580 H* Total Protein Albumin HDL Cholesterol Arterial Blood Potassium Arterial Blood Glucose Ur Specific [place] 1.039 H Crossmatch 04/19/21 04/19/21 04/19/21 04:18 04:18 07:16 RBC Hgb Hct Neutrophils # Lymphocytes # APTT 34.3 H ABG pCO2 ABG pO2 ABG HCO3 ABG Total CO2 ABG O2 Saturation ABG Hematocrit ABG Potassium ABG Ionized Calcium ABG Glucose ABG Lactic Acid Hemoglobin Sodium 136 L Chloride 108 H Glucose POC Glucose (mg/dL) Calcium Magnesium AST Troponin I 1.150 H* Total Protein Albumin HDL Cholesterol 37.0 L Arterial Blood Potassium Arterial Blood Glucose Ur Specific [place] Crossmatch 04/19/21 04/19/21 04/19/21 11:52 15:51 22:18 RBC Hgb Hct Neutrophils # Lymphocytes # APTT 67.0 H 46.2 H ABG pCO2 ABG pO2 ABG HCO3 ABG Total CO2 ABG O2 Saturation ABG Hematocrit ABG Potassium ABG Ionized Calcium ABG Glucose ABG Lactic Acid Hemoglobin Sodium Chloride Glucose POC Glucose (mg/dL) Calcium Magnesium AST Troponin I Total Protein Albumin HDL Cholesterol Arterial Blood Potassium Arterial Blood Glucose Ur Specific [place] Crossmatch See Detail 04/20/21 04/20/21 04/20/21 08:27 09:27 11:38 RBC Hgb Hct Neutrophils # Lymphocytes # APTT ABG pCO2 49 H ABG pO2 277 H 137 H ABG HCO3 28 H 26 H ABG Total CO2 29 H 27 H 26 H ABG O2 Saturation 98.0 H 100.0 H 99.3 H ABG Hematocrit 50 H ABG Potassium 4.6 H ABG Ionized Calcium ABG Glucose 112 H ABG Lactic Acid Hemoglobin Sodium Chloride Glucose POC Glucose (mg/dL) Calcium Magnesium AST Troponin I Total Protein Albumin HDL Cholesterol Arterial Blood Potassium 4.6 H Arterial Blood Glucose 112 H Ur Specific [place] Crossmatch 04/20/21 04/20/21 04/20/21 12:54 13:30 14:10 RBC Hgb Hct Neutrophils # Lymphocytes # APTT ABG pCO2 ABG pO2 >420 H 297 H 418 H ABG HCO3 ABG Total CO2 25 H 25 H 26 H ABG O2 Saturation 100.0 H 100.0 H 100.0 H ABG Hematocrit 33 L ABG Potassium 5.2 H 5.2 H ABG Ionized Calcium 4.1 L 4.1 L 4.1 L ABG Glucose 110 H 110 H 111 H ABG Lactic Acid Hemoglobin 11.6 L 11.3 L 10.7 L Sodium Chloride Glucose POC Glucose (mg/dL) Calcium Magnesium AST Troponin I Total Protein Albumin HDL Cholesterol Arterial Blood Potassium 5.2 H 5.2 H Arterial Blood Glucose 110 H 110 H 111 H Ur Specific [place] Crossmatch 04/20/21 04/20/21 04/20/21 14:44 16:04 16:37 RBC 3.82 L Hgb 12.2 L D Hct 33.6 L Neutrophils # Lymphocytes # 0.8 L APTT ABG pCO2 ABG pO2 319 H ABG HCO3 ABG Total CO2 27 H 26 H ABG O2 Saturation 100.0 H 98.6 H ABG Hematocrit 32 L ABG Potassium 5.1 H ABG Ionized Calcium 4.1 L 4.2 L ABG Glucose 113 H 109 H ABG Lactic Acid 1.7 H Hemoglobin 11.3 L 10.6 L Sodium Chloride Glucose POC Glucose (mg/dL) Calcium Magnesium AST Troponin I Total Protein Albumin HDL Cholesterol Arterial Blood Potassium 5.1 H Arterial Blood Glucose 113 H 109 H Ur Specific [place] Crossmatch 04/20/21 04/20/21 04/20/21 16:37 16:37 16:38 RBC Hgb Hct Neutrophils # Lymphocytes # APTT 41.2 H ABG pCO2 ABG pO2 ABG HCO3 26 H ABG Total CO2 28 H ABG O2 Saturation 98.0 H ABG Hematocrit ABG Potassium ABG Ionized Calcium ABG Glucose ABG Lactic Acid Hemoglobin Sodium Chloride 108 H Glucose 106 H POC Glucose (mg/dL) Calcium 8.3 L Magnesium 2.6 H AST Troponin I Total Protein 4.6 L Albumin 2.6 L HDL Cholesterol Arterial Blood Potassium Arterial Blood Glucose Ur Specific [place] Crossmatch 04/20/21 04/20/21 04/20/21 16:39 17:00 18:06 RBC Hgb Hct Neutrophils # Lymphocytes # APTT ABG pCO2 ABG pO2 ABG HCO3 ABG Total CO2 ABG O2 Saturation ABG Hematocrit ABG Potassium ABG Ionized Calcium ABG Glucose ABG Lactic Acid Hemoglobin Sodium Chloride Glucose POC Glucose (mg/dL) 110 H 107 H 119 H Calcium Magnesium AST Troponin I Total Protein Albumin HDL Cholesterol Arterial Blood Potassium Arterial Blood Glucose Ur Specific [place] Crossmatch 04/20/21 04/20/21 04/20/21 19:01 19:24 19:24 RBC 4.16 L Hgb Hct 37.6 L Neutrophils # 8.8 H Lymphocytes # 0.5 L APTT ABG pCO2 ABG pO2 ABG HCO3 ABG Total CO2 ABG O2 Saturation ABG Hematocrit ABG Potassium ABG Ionized Calcium ABG Glucose ABG Lactic Acid Hemoglobin Sodium 136 L Chloride Glucose 154 H POC Glucose (mg/dL) 149 H Calcium 8.2 L Magnesium AST Troponin I Total Protein Albumin HDL Cholesterol Arterial Blood Potassium Arterial Blood Glucose Ur Specific [place] Crossmatch 04/20/21 04/20/21 04/20/21 19:57 20:38 22:16 RBC 3.84 L Hgb 12.1 L Hct 34.7 L Neutrophils # Lymphocytes # 0.4 L APTT ABG pCO2 ABG pO2 ABG HCO3 ABG Total CO2 25 H ABG O2 Saturation 98.3 H ABG Hematocrit ABG Potassium ABG Ionized Calcium ABG Glucose ABG Lactic Acid Hemoglobin Sodium Chloride Glucose POC Glucose (mg/dL) 143 H Calcium Magnesium AST Troponin I Total Protein Albumin HDL Cholesterol Arterial Blood Potassium Arterial Blood Glucose Ur Specific [place] Crossmatch 04/20/21 04/20/21 04/21/21 22:18 23:13 00:16 RBC Hgb Hct Neutrophils # Lymphocytes # APTT ABG pCO2 ABG pO2 ABG HCO3 ABG Total CO2 ABG O2 Saturation ABG Hematocrit ABG Potassium ABG Ionized Calcium ABG Glucose ABG Lactic Acid Hemoglobin Sodium Chloride Glucose POC Glucose (mg/dL) 121 H 116 H 113 H Calcium Magnesium AST Troponin I Total Protein Albumin HDL Cholesterol Arterial Blood Potassium Arterial Blood Glucose Ur Specific [place] Crossmatch 04/21/21 04/21/21 04/21/21 01:23 02:20 02:58 RBC Hgb Hct Neutrophils # Lymphocytes # APTT ABG pCO2 ABG pO2 ABG HCO3 ABG Total CO2 ABG O2 Saturation ABG Hematocrit ABG Potassium ABG Ionized Calcium ABG Glucose ABG Lactic Acid Hemoglobin Sodium Chloride Glucose POC Glucose (mg/dL) 137 H 135 H 127 H Calcium Magnesium AST Troponin I Total Protein Albumin HDL Cholesterol Arterial Blood Potassium Arterial Blood Glucose Ur Specific [place] Crossmatch 04/21/21 04/21/21 04/21/21 03:55 03:55 03:58 RBC 3.71 L Hgb 11.8 L Hct 33.5 L Neutrophils # Lymphocytes # 0.5 L APTT ABG pCO2 ABG pO2 ABG HCO3 ABG Total CO2 ABG O2 Saturation ABG Hematocrit ABG Potassium ABG Ionized Calcium ABG Glucose ABG Lactic Acid Hemoglobin Sodium 135 L Chloride Glucose 121 H POC Glucose (mg/dL) 123 H Calcium Magnesium AST 61 H Troponin I Total Protein 5.0 L Albumin 3.0 L HDL Cholesterol Arterial Blood Potassium Arterial Blood Glucose Ur Specific [place] Crossmatch 04/21/21 04/21/21 04/21/21 05:04 06:05 07:01 RBC Hgb Hct Neutrophils # Lymphocytes # APTT ABG pCO2 ABG pO2 ABG HCO3 ABG Total CO2 ABG O2 Saturation ABG Hematocrit ABG Potassium ABG Ionized Calcium ABG Glucose ABG Lactic Acid Hemoglobin Sodium Chloride Glucose POC Glucose (mg/dL) 122 H 123 H 131 H Calcium Magnesium AST Troponin I Total Protein Albumin HDL Cholesterol Arterial Blood Potassium Arterial Blood Glucose Ur Specific [place] Crossmatch 04/21/21 04/21/21 04/21/21 07:53 09:58 10:59 RBC Hgb Hct Neutrophils # Lymphocytes # APTT ABG pCO2 ABG pO2 ABG HCO3 ABG Total CO2 ABG O2 Saturation ABG Hematocrit ABG Potassium ABG Ionized Calcium ABG Glucose ABG Lactic Acid Hemoglobin Sodium Chloride Glucose POC Glucose (mg/dL) 152 H 156 H 134 H Calcium Magnesium AST Troponin I Total Protein Albumin HDL Cholesterol Arterial Blood Potassium Arterial Blood Glucose Ur Specific [place] Crossmatch 04/21/21 12:09 RBC Hgb Hct Neutrophils # Lymphocytes # APTT ABG pCO2 ABG pO2 ABG HCO3 ABG Total CO2 ABG O2 Saturation ABG Hematocrit ABG Potassium ABG Ionized Calcium ABG Glucose ABG Lactic Acid Hemoglobin Sodium Chloride Glucose POC Glucose (mg/dL) 108 H Calcium Magnesium AST Troponin I Total Protein Albumin HDL Cholesterol Arterial Blood Potassium Arterial Blood Glucose Ur Specific [place] Crossmatch - Diagnostic Findings Chest x-ray: image reviewed (As noted in HPI.) Assessment and Plan Assessment: Impression: Acute non-ST elevation myocardial infarction on this admission. Status post 4 vessel CABG. Lifelong nonsmoker. Postoperative atelectasis, expected. History of paroxysmal atrial fibrillation. History of degenerative joint disease. Strong family history of coronary artery disease. Postoperative blood loss anemia, expected. Recommendation: Patient was extubated successfully within a few hours after presentation to the ICU. Continue aspirin statins and Plavix and beta blockers. Continue to wean oxygen as tolerated. Continue incentive spirometry. Continue bronchodilators. Continue GI and DVT prophylaxis. Close monitoring and treatment of sugars. Discontinue unnecessary catheters and lines. Early ambulation. We'll continue to follow. Time with Patient: Greater than 30
[2021-04-21 13:02] VITALS: BMI 28.3
[2021-04-21 13:21] LABS: Glucose,Whole Blood 138 mg/dL (75-99)
[2021-04-21 14:08] LABS: Glucose,Whole Blood 127 mg/dL (75-99)
[2021-04-21] MEDS: SODIUM CHLORIDE 0.9% 1,000 ML IV SCH (14:11)
[2021-04-21 16:00] LABS: Glucose,Whole Blood 121 mg/dL (75-99)
[2021-04-21 18:12] LABS: Glucose,Whole Blood 105 mg/dL (75-99)
[2021-04-21 19:02] LABS: Glucose,Whole Blood 106 mg/dL (75-99)
[2021-04-21 20:41] LABS: Glucose,Whole Blood 118 mg/dL (75-99)
[2021-04-21] MEDS: SENNOSIDES-DOCUSATE SODIUM 1 EACH TAB PO SCH (21:00)
[2021-04-21 22:23] LABS: Glucose,Whole Blood 89 mg/dL (75-99)
[2021-04-22] MEDS: KETOROLAC 15 MG/ML 1 ML VIAL IVP SCH ×5 (00:06→23:33)
[2021-04-22] MEDS: HEPARIN SODIUM,PORCINE/PF 5,000 UNIT/0.5 ML SYRINGE SQ SCH ×4 (00:09→23:33)
[2021-04-22 00:15] LABS: Glucose,Whole Blood 114 mg/dL (75-99)
[2021-04-22 02:10] LABS: Glucose,Whole Blood 118 mg/dL (75-99)
[2021-04-22] MEDS: DEXTROSE 5% IN WATER 100 ML with AMIODARONE 150 MG IV PRN ×2 (04:05→04:33)
[2021-04-22 04:27] LABS: Basophils % (A) 0 %; Eosinophils # (A) 0.1 k/uL (0-0.7); Eosinophils % (A) 1 %; HCT 31.8 % (39.0-53.0); Lymphocytes # (A) 0.8 k/uL (1.0-4.8); Lymphocytes % (A) 10 %; MCH 31.8 pg (25.0-35.0); MCHC 34.8 g/dL (31.0-37.0); MCV 91.4 fL (80.0-100.0); Mean Platelet Volume 7.1; Monocytes # (A) 0.6 k/uL (0-1.0); Monocytes % (A) 7 %; Neutrophils # (A) 6.3 k/uL (1.3-7.7); Neutrophils % (A) 80 %; Platelet Count 136 k/uL (150-450); RBC 3.47 m/uL (4.30-5.90); RDW 12.9 % (11.5-15.5); WBC 7.8 k/uL (3.8-10.6)
[2021-04-22 04:40] LABS: Ionized Calcium 5.2 mg/dL (4.5-5.3)
[2021-04-22] MEDS: HYDROcodone/APAP 5-325MG 1 EACH TAB PO PRN ×2 (04:45→08:27)
[2021-04-22 04:48] LABS: ALT 18 U/L (4-49); AST 61 U/L (17-59); African American GFR (CKD) >90 (>60 ml/min/1.73 sqM); Albumin 2.8 g/dL (3.5-5.0); Alkaline Phosphatase 53 U/L (38-126); Anion Gap 2 mmol/L; Blood Urea Nitrogen 15 mg/dL (9-20); Calcium 8.3 mg/dL (8.4-10.2); Carbon Dioxide 26 mmol/L (22-30); Chloride 105 mmol/L (98-107); Glucose 100 mg/dL (74-99); Non-African American GFR(CKD) >90 (>60 ml/min/1.73 sqM); Potassium 4.2 mmol/L (3.5-5.1); Sodium 133 mmol/L (137-145)
[2021-04-22 06:36] LABS: Glucose,Whole Blood 112 mg/dL (75-99)
[2021-04-22] MEDS: SIMETHICONE 80 MG CHEWABLE PO SCH ×4 (07:56→21:08)
[2021-04-22] MEDS: ALPRAZolam 0.25 MG TAB PO PRN ×2 (07:56→21:01)
--- NOTE | 2021-04-22 08:01 | XR ---
EXAMINATION TYPE: XR chest 1V portable DATE OF EXAM: 04/22/2021 COMPARISON: 04/21/2021 INDICATION: Postop cardiac surgery TECHNIQUE: Single frontal view of the chest is obtained. FINDINGS: The heart size is normal. The pulmonary vasculature is normal. Bibasilar infiltrates are present. Small pleural effusions are not excluded. Findings are slightly wo rsened over the interval. Patient is status post CABG. [place] catheters been removed. Sheath raffy ins present. IMPRESSION: 1. Small bibasilar infiltrates with small left pleural effusion, slightly worsened over the interval.
--- NOTE | 2021-04-22 08:10 | P.PN ---
Subjective Progress Note Date: 04/22/21 Principal diagnosis: Triple-vessel coronary artery disease, non-STEMI this admission, previous medical history of hyperlipidemia, remote history of paroxysmal atrial fibrillation 10-15 years ago, never smoker, strong family history of coronary artery disease including premature coronary artery disease with grandmother diagnosed at 60 years old. Vaccinated against Covid 19 with Pfizer POD #1 quintuple multiple arterial coronary artery bypass grafting using the left internal mammary artery sequentially to the diagonal artery, then to the left anterior descending artery, left radial artery from the aorta sequentially to the first obtuse marginal artery, then to the second obtuse marginal artery, reverse saphenous vein graft from the aorta to the right coronary artery, ex clusion of the left atrial appendage using a 35 mm AtriClip, endoscopic harvesting of the left radial artery, endoscopic harvesting of the right greater saphenous vein from the groin to above the ankle level, intraoperative transesophageal echocardiogram and epi-aortic scanning, intraoperative graft flow measurements using the [employer] system Postoperative acute blood loss anemia and thrombocytopenia, expected given hemodilution and cardiopulmonary bypass pump Paroxysmal atrial fibrillation, known common occurrence after open heart surgery Patient is currently sitting up in a recliner in the intensive care unit. States post surgical pain is mostly controlled on current medication regimen, does complain of some tightness in his left chest tube site, denies shortness of breath. Did have a brief episode of paroxysmal atrial fibrillation this morning with heart rate in the 90s to low 100s, IV amiodarone bolus and drip started with quick conversion back to sinus rhythm. Currently in sinus rhythm, hemodynamically stable. Right internal jugular cordis, left pleural chest tube remains. He is oxygenating well on 2 L nasal cannula. Actively using incentive spirometer and achieving 750-1000 mL. Urine output adequate. Patient is highly anxious since his brief bout with atrial fibrillation, is worried he is going to , feels he has no strength, doesn't feel he can cough and deep breathe, feels he's had a major setback. Patient was reassured that everything he is going through it is very normal postoperative course after open heart surgery. Patient remains very anxious, small doses Xanax ordered. Objective - Vital Signs Vital signs: Vital Signs Temp 98 F 04/22/21 04:00 Pulse 79 04/22/21 07:00 Resp 22 04/22/21 07:00 BP 92/73 04/22/21 07:00 Pulse Ox 95 04/22/21 07:00 Intake & Output 04/21/21 04/22/21 04/22/21 18:59 06:59 18:59 Intake Total 611.536 885.0 77.5 Output Total 965 760 120 Balance -353.464 125.0 -42.5 Weight 94.8 kg 95.3 kg Intake: IV 607 785.0 77.5 .9 520 480 40 Amio Bolus 200 Amiodarone 1 mg 69.0 34.5 Cardiac Output 30 Pressure Bags 57 36 3 Intake, IV Titration 4.536 Amount Insulin Regular 100 unit 4.536 In Sodium Chloride 0.9% 100 ml @ Per Protocol IV .Q0M [facility] Rx#:[id number] Oral 100 Output: Chest Tube Drainage 140 170 90 Left Pleural 70 170 90 Mediastinal X 2 30 Right Pleural 40 Urine 825 590 30 Other: Voiding Method Indwelling Catheter Indwelling Catheter ABP, PAP, CO, CI - Last Documented Arterial Blood Pressure 112/52 Pulmonary Artery Pressure 25/7 Cardiac Output 4.6 Cardiac Index 2.1 - Exam CONSTITUTIONAL: Appears very anxious RESPIRATORY: Lungs sounds diminished bilaterally. Respirations even, nonlabored. Currently on 2 L nasal cannula with oxygen saturation 93%. Able to achieve 750-1000 mL on incentive spirometry. Weak cough. CARDIOVASCULAR: S1, S2 present. Regular rate and rhythm, sinus rhythm on telem etry. Sternum stable. Palpable peripheral pulses bilaterally. No edema present. No calf pain or tenderness noted. Heart hugger in place with patient demonstrating appropriate use. Antiembolism stockings, SCDs present. GASTROINTESTINAL: Abdomen soft, nontender, nondistended. Hypoactive bowel sounds present 4 quadrants. Tolerating clear liquid diet. Negative flatus GENITOURINARY: Casper present draining clear, yellow urine. Output overnight 35-100 mL per hour, 1340 mL in the last 24 hours INTEGUMENTARY: Skin is warm and dry with evidence of good perfusion. Anterior chest incision well approximated and covered with dry intact dressing. Left lower extremity EVH site well approximated without redness or drainage. Left radial artery harvest site without redness or drainage NEUROLOGIC: Cranial nerves II through XII intact MUSKULOSKELETAL: Able to move all extremities, strength equal bilaterally PSYCHIATRIC: Alert and oriented to person place and time, very anxious INVASIVE LINES AND TUBES: Left pleural chest tubes present and connected to wall suction, no air leaks present, 90 mL serosanguineous drainage overnight, 400 mL in the last 24 hours. Right internal jugular Cordis present. Last CVP 6. - Allied health notes Allied health notes reviewed: nursing - Labs CBC & Chem 7: 04/22/21 04:05 04/22/21 04:05 Labs: Abnormal Lab Results - Last 24 Hours (Table) 04/21/21 04/21/21 04/21/21 Range/Units 07:53 09:58 10:59 RBC (4.30-5.90) m/uL Hgb (13.0-17.5) gm/dL Hct (39.0-53.0) % Plt Count (150-450) k/uL Lymphocytes # (1.0-4.8) k/uL Sodium (137-145) mmol/L Glucose (74-99) mg/dL POC Glucose (mg/dL) 152 H 156 H 134 H (75-99) mg/dL Calcium (8.4-10.2) mg/dL AST (17-59) U/L Total Protein (6.3-8.2) g/dL Albumin (3.5-5.0) g/dL 04/21/21 04/21/21 04/21/21 Range/Units 12:09 13:19 14:07 RBC (4.30-5.90) m/uL Hgb (13.0-17.5) gm/dL Hct (39.0-53.0) % Plt Count (150-450) k/uL Lymphocytes # (1.0-4.8) k/uL Sodium (137-145) mmol/L Glucose (74-99) mg/dL POC Glucose (mg/dL) 108 H 138 H 127 H (75-99) mg/dL Calcium (8.4-10.2) mg/dL AST (17-59) U/L Total Protein (6.3-8.2) g/dL Albumin (3.5-5.0) g/dL 04/21/21 04/21/21 04/21/21 Range/Units 15:59 18:11 19:01 RBC (4.30-5.90) m/uL Hgb (13.0-17.5) gm/dL Hct (39.0-53.0) % Plt Count (150-450) k/uL Lymphocytes # (1.0-4.8) k/uL Sodium (137-145) mmol/L Glucose (74-99) mg/dL POC Glucose (mg/dL) 121 H 105 H 106 H (75-99) mg/dL Calcium (8.4-10.2) mg/dL AST (17-59) U/L Total Protein (6.3-8.2) g/dL Albumin (3.5-5.0) g/dL 04/21/21 04/22/21 04/22/21 Range/Units 20:39 00:14 02:08 RBC (4.30-5.90) m/uL Hgb (13.0-17.5) gm/dL Hct (39.0-53.0) % Plt Count (150-450) k/uL Lymphocytes # (1.0-4.8) k/uL Sodium (137-145) mmol/L Glucose (74-99) mg/dL POC Glucose (mg/dL) 118 H 114 H 118 H (75-99) mg/dL Calcium (8.4-10.2) mg/dL AST (17-59) U/L Total Protein (6.3-8.2) g/dL Albumin (3.5-5.0) g/dL 04/22/21 04/22/21 04/22/21 Range/Units 04:05 04:05 06:33 RBC 3.47 L (4.30-5.90) m/uL Hgb 11.0 L (13.0-17.5) gm/dL Hct 31.8 L (39.0-53.0) % Plt Count 136 L (150-450) k/uL Lymphocytes # 0.8 L (1.0-4.8) k/uL Sodium 133 L (137-145) mmol/L Glucose 100 H (74-99) mg/dL POC Glucose (mg/dL) 112 H (75-99) mg/dL Calcium 8.3 L (8.4-10.2) mg/dL AST 61 H (17-59) U/L Total Protein 5.0 L (6.3-8.2) g/dL Albumin 2.8 L (3.5-5.0) g/dL - Imaging and Cardiology Chest x-ray: report reviewed, image reviewed Assessment and Plan Assessment: 1. Triple-vessel coronary artery disease, non-STEMI this admission, status post four-vessel CABG 2. History of hyperlipidemia, cholesterol 176, LDL 122 3. Remote history of paroxysmal atrial fibrillation 10-15 years ago 4. Never smoker, preoperative FEV1 79% of predicted 5. Osteoarthritis 6. Strong family history of coronary artery disease including premature coronary artery disease with grandmother with [place] at 60 years old. 7. Postoperative acute blood loss anemia and thrombocytopenia, expected given hemodilution and cardiopulmonary bypass pump 8. Paroxysmal atrial fibrillation, known common occurrence after open heart surgery, status post left atrial appendage ligation Plan: 1. Continue aspirin, statin, Plavix, beta samantha therapy. Will increase beta samantha therapy as tolerated 2. Continue Norvasc for radial artery spasm prophylaxis, do not discontinue CCB without discussing with cardiac surgery 3. Continue amiodarone, will transition to oral amiodarone. No need for anticoagulation unless patient is in A. fib for greater than 24 hours or continues to go in and out of A. fib 4. Wean O2 as tolerated. Encourage incentive spirometry use 10 times every hour while awake. Bronchodilators per pulmonology 5. Increase activity, ambulate as tolerated. PT/OT/cardiac rehab consulted 6. Will monitor daily labs and x-rays. Electrolyte replacement per protocol 7. GI/DVT prophylaxis 8. Pain control with current medication regimen 9. Insulin management per primary care service. Patient is not diabetic with hemoglobin A1c 5.3%, he does need tight blood sugar control to promote healing and prevent infection 10. Xanax added for anxiety 11. Possibly will discontinue left pleural chest tube, will monitor drainage this morning 12. Discontinue Casper catheter. May bladder scan and straight cath for greater than 300 mL residual 13. Strict accurate intake and output. Daily weights 14. More recommendations to follow based on patient's progress Time with Patient: Greater than 30
[2021-04-22] MEDS: IPRATROPIUM-ALBUTEROL 3 ML NEB INHALATION SCH ×4 (08:12→19:44)
[2021-04-22] MEDS: CLOPIDOGREL 75 MG TAB PO SCH (08:27)
[2021-04-22] MEDS: METOPROLOL TARTRATE 25 MG TAB PO SCH ×2 (08:27→21:01)
[2021-04-22] MEDS: ASPIRIN 325 MG TAB PO SCH (08:28)
[2021-04-22] MEDS: PANTOPRAZOLE 40 MG TABLET PO SCH (08:28)
[2021-04-22] MEDS: ATORVASTATIN 80 MG TAB PO SCH (08:28)
[2021-04-22] MEDS: MUPIROCIN 2% OINT 22 GM TUBE NASAL SCH ×2 (08:28→21:01)
--- NOTE | 2021-04-22 08:30 | P.PN ---
Subjective This is a pleasant 60-year-old male with no significant past medical history other than his father had coronary artery disease in his 60s. The patient presented to the hospital last night with acute chest pain and was found to have a non-ST elevated myocardial infarction. Cardiac catheterization revealed critical 2 vessel disease involving the RCA and LAD which was deemed complicated with multiple lesions and straddling LAD and diagonal branches. Therefore he was recommended to be evaluated for bypass grafting. He is seen and examined resting comfortably lying flat in bed in no acute distress. He denies symptoms of chest discomfort, shortness of breath, dizziness or palpitations. He states at times he does feel a burning sensation in the epigastric region but is unsure if this is related to reflux or chest discomfort. He did refuse Nitropaste this morning as a cost a pretty significant headache. Blood pressure 136/91 heart rate 62 afebrile maintaining oxygen saturation on room air. Laboratory data reviewed, CBC unremarkable, sodium 136, potassium 4.4, creatinine 0.88, LDL 122, HDL 37 and TSH 3.55. Echocardiogram obtained revealed preserved LV systolic function with ejection fraction 55-60%, normal diastolic filling pattern, mild MR and mild TR. 04/21/2021 Pt is s/p quintuple bypass grafting with OLIVER sequentially to the diet, then to the LAD, left radial artery from the aorta to the first OM then to the second OM, reverse SVG from aorta to the RCA and exclusion of the left atrial appendage. He is sitting up in the recliner chair in no acute distress. He has chest tubes in place and heart hugger. He states he is feeling some strain across his chest like a puling, likely post surgical type discomfort. He denies shortness of breath. He feels somewhat light headed but is attributing this to the norco. Blood pressure 126/59 heart rate 90 afebrile maintaining oxygen saturation on nasal cannula. Laboratory data reviewed, WBC 7.8, hemoglobin 11.8, platelets 152, sodium 135, potassium 4.4, creatinine 0.83 and magnesium 2.1. Cardiac output is 4.8, CVP is 4. PA pressure 25/10. 9/17 Patient seen and examined. Patient had a [place] catheter pulled yesterday. He went into atrial fibrillation yesterday and therefore was placed on amiodarone drip. He went into atrial fibrillation this morning at approximately 4 AM with heart rates only minimally elevated predominantly 90s however felt this and has been somewhat anxious since. A. fib only lasted approximately one hour. However since that time he has felt more chest discomfort with his left chest tube which appears right around the site and feels like it is harder to take a deep breath then. Therefore he is asking for narcotics. He also is feeling somewhat diaphoretic and short of breath. EKG does show mild diffuse ST elevation however no reciprocal changes. His CVP is 6 this morning. He is receiving small doses xanax to help with some anxiety. Chest x-ray read out as mild increase in left pleural effusion. Approximate 400 mL output from left chest tube over last 24 hours. GENERAL: Well-appearing, well-nourished and in no acute distress, mild diaphoresis. Left pleural chest tubes in place. NECK: Supple without JVD or thyromegaly. LUNGS: Breath sounds clear to auscultation bilaterally. Respiration equal and unlabored. No wheezes, rales or rhonchi. HEART: Regular rate and rhythm without murmurs, rubs or gallops. S1 and S2 heard. EXTREMITIES: Normal range of motion, no edema. No clubbing or cyanosis. Peripheral pulses intact. ASSESSMENT NSTEMI Dyslipidemia Coronary artery disease status post bypass grafting Pericarditis PLAN Continue current medical regimen. Encourage incentive spirometer use. We will add Colchicine for what appears to be pericarditis with diffuse minimal ST elevation without reciprocal changes. Chest x-ray somewhat poor inspiration however may be some mild congestion. His CVP however noted to be 6. Continue to monitor urine output. If becomes more short of breath likely give Lasix. Chest tube management per cardiothoracic surgery. Chest pain appears mainly pleuritic and related to chest tube. Objective - Vital Signs Vital signs: Vital Signs Temp 98.0 F 04/22/21 08:00 Pulse 76 04/22/21 08:00 Resp 24 04/22/21 08:00 BP 106/76 04/22/21 08:00 Pulse Ox 96 04/22/21 08:00 Intake & Output 04/21/21 04/22/21 04/22/21 18:59 06:59 18:59 Intake Total 611.536 885.0 77.5 Output Total 965 760 120 Balance -353.464 125.0 -42.5 Weight 94.8 kg 95.3 kg Intake: IV 607 785.0 77.5 .9 520 480 40 Amio Bolus 200 Amiodarone 1 mg 69.0 34.5 Cardiac Output 30 Pressure Bags 57 36 3 Intake, IV Titration 4.536 Amount Insulin Regular 100 unit 4.536 In Sodium Chloride 0.9% 100 ml @ Per Protocol IV .Q0M [facility] Rx#:[id number] Oral 100 Output: Chest Tube Drainage 140 170 90 Left Pleural 70 170 90 Mediastinal X 2 30 Right Pleural 40 Urine 825 590 30 Other: Voiding Method Indwelling Catheter Indwelling Catheter ABP, PAP, CO, CI - Last Documented Arterial Blood Pressure 112/52 Pulmonary Artery Pressure 25/7 Cardiac Output 4.6 Cardiac Index 2.1 - Labs CBC & Chem 7: 04/22/21 04:05 04/22/21 04:05 Labs: Abnormal Lab Results - Last 24 Hours (Table) 04/21/21 04/21/21 04/21/21 Range/Units 09:58 10:59 12:09 RBC (4.30-5.90) m/uL Hgb (13.0-17.5) gm/dL Hct (39.0-53.0) % Plt Count (150-450) k/uL Lymphocytes # (1.0-4.8) k/uL Sodium (137-145) mmol/L Glucose (74-99) mg/dL POC Glucose (mg/dL) 156 H 134 H 108 H (75-99) mg/dL Calcium (8.4-10.2) mg/dL AST (17-59) U/L Total Protein (6.3-8.2) g/dL Albumin (3.5-5.0) g/dL 04/21/21 04/21/21 04/21/21 Range/Units 13:19 14:07 15:59 RBC (4.30-5.90) m/uL Hgb (13.0-17.5) gm/dL Hct (39.0-53.0) % Plt Count (150-450) k/uL Lymphocytes # (1.0-4.8) k/uL Sodium (137-145) mmol/L Glucose (74-99) mg/dL POC Glucose (mg/dL) 138 H 127 H 121 H (75-99) mg/dL Calcium (8.4-10.2) mg/dL AST (17-59) U/L Total Protein (6.3-8.2) g/dL Albumin (3.5-5.0) g/dL 04/21/21 04/21/21 04/21/21 Range/Units 18:11 19:01 20:39 RBC (4.30-5.90) m/uL Hgb (13.0-17.5) gm/dL Hct (39.0-53.0) % Plt Count (150-450) k/uL Lymphocytes # (1.0-4.8) k/uL Sodium (137-145) mmol/L Glucose (74-99) mg/dL POC Glucose (mg/dL) 105 H 106 H 118 H (75-99) mg/dL Calcium (8.4-10.2) mg/dL AST (17-59) U/L Total Protein (6.3-8.2) g/dL Albumin (3.5-5.0) g/dL 04/22/21 04/22/21 04/22/21 Range/Units 00:14 02:08 04:05 RBC 3.47 L (4.30-5.90) m/uL Hgb 11.0 L (13.0-17.5) gm/dL Hct 31.8 L (39.0-53.0) % Plt Count 136 L (150-450) k/uL Lymphocytes # 0.8 L (1.0-4.8) k/uL Sodium (137-145) mmol/L Glucose (74-99) mg/dL POC Glucose (mg/dL) 114 H 118 H (75-99) mg/dL Calcium (8.4-10.2) mg/dL AST (17-59) U/L Total Protein (6.3-8.2) g/dL Albumin (3.5-5.0) g/dL 04/22/21 04/22/21 Range/Units 04:05 06:33 RBC (4.30-5.90) m/uL Hgb (13.0-17.5) gm/dL Hct (39.0-53.0) % Plt Count (150-450) k/uL Lymphocytes # (1.0-4.8) k/uL Sodium 133 L (137-145) mmol/L Glucose 100 H (74-99) mg/dL POC Glucose (mg/dL) 112 H (75-99) mg/dL Calcium 8.3 L (8.4-10.2) mg/dL AST 61 H (17-59) U/L Total Protein 5.0 L (6.3-8.2) g/dL Albumin 2.8 L (3.5-5.0) g/dL
[2021-04-22] MEDS: SODIUM CHLORIDE 0.9% 1,000 ML IV SCH (08:33)
[2021-04-22] MEDS ORDERED: COLCHICINE 0.6 MG EACH PO ONE (09:00)
--- NOTE | 2021-04-22 09:53 | P.PN ---
Subjective Progress Note Date: 04/22/21 Pt had 3 chest tubes removed yesterday, 1 chest tube remains in left lower anterior chest. Pt complains of pain at this site, treated with norco, and colchicine for small component of pericarditis. Had episode of AFib with RVR lasting one hour. Currently on amiodarone and metoprolol in sinus rhythm with multiple PVCs on telemetry. Objective - Vital Signs Vital signs: Vital Signs Temp 98.0 F 04/22/21 08:00 Pulse 68 04/22/21 09:00 Resp 21 04/22/21 09:00 BP 98/69 04/22/21 09:00 Pulse Ox 92 L 04/22/21 09:00 Intake & Output 04/21/21 04/22/21 04/22/21 18:59 06:59 18:59 Intake Total 611.536 885.0 77.5 Output Total 965 760 120 Balance -353.464 125.0 -42.5 Weight 94.8 kg 95.3 kg Intake: IV 607 785.0 77.5 .9 520 480 40 Amio Bolus 200 Amiodarone 1 mg 69.0 34.5 Cardiac Output 30 Pressure Bags 57 36 3 Intake, IV Titration 4.536 Amount Insulin Regular 100 unit 4.536 In Sodium Chloride 0.9% 100 ml @ Per Protocol IV .Q0M [facility] Rx#:[id number] Oral 100 Output: Chest Tube Drainage 140 170 90 Left Pleural 70 170 90 Mediastinal X 2 30 Right Pleural 40 Urine 825 590 30 Other: Voiding Method Indwelling Catheter Indwelling Catheter Indwelling Catheter ABP, PAP, CO, CI - Last Documented Arterial Blood Pressure 112/52 Pulmonary Artery Pressure 25/7 Cardiac Output 4.6 Cardiac Index 2.1 - Exam Gen: awake, alert HEENT: normocephalic, atraumatic, good hearing acuity, moist mucous membranes Resp: good air exchange, breathing comfortably with no accessory muscle use CVS: good distal perfusion x 4, GI: soft, NTTP, ND : no SPT, no CVAT, montoya catheter not present MSK: no pitting edema, no clubbing Neuro: non-focal, moving all extremities Psych: cooperative, euthymic mood - Labs CBC & Chem 7: 04/22/21 04:05 04/22/21 04:05 Labs: Abnormal Lab Results - Last 24 Hours (Table) 04/21/21 04/21/21 04/21/21 Range/Units 09:58 10:59 12:09 RBC (4.30-5.90) m/uL Hgb (13.0-17.5) gm/dL Hct (39.0-53.0) % Plt Count (150-450) k/uL Lymphocytes # (1.0-4.8) k/uL Sodium (137-145) mmol/L Glucose (74-99) mg/dL POC Glucose (mg/dL) 156 H 134 H 108 H (75-99) mg/dL Calcium (8.4-10.2) mg/dL AST (17-59) U/L Total Protein (6.3-8.2) g/dL Albumin (3.5-5.0) g/dL 04/21/21 04/21/21 04/21/21 Range/Units 13:19 14:07 15:59 RBC (4.30-5.90) m/uL Hgb (13.0-17.5) gm/dL Hct (39.0-53.0) % Plt Count (150-450) k/uL Lymphocytes # (1.0-4.8) k/uL Sodium (137-145) mmol/L Glucose (74-99) mg/dL POC Glucose (mg/dL) 138 H 127 H 121 H (75-99) mg/dL Calcium (8.4-10.2) mg/dL AST (17-59) U/L Total Protein (6.3-8.2) g/dL Albumin (3.5-5.0) g/dL 04/21/21 04/21/21 04/21/21 Range/Units 18:11 19:01 20:39 RBC (4.30-5.90) m/uL Hgb (13.0-17.5) gm/dL Hct (39.0-53.0) % Plt Count (150-450) k/uL Lymphocytes # (1.0-4.8) k/uL Sodium (137-145) mmol/L Glucose (74-99) mg/dL POC Glucose (mg/dL) 105 H 106 H 118 H (75-99) mg/dL Calcium (8.4-10.2) mg/dL AST (17-59) U/L Total Protein (6.3-8.2) g/dL Albumin (3.5-5.0) g/dL 04/22/21 04/22/21 04/22/21 Range/Units 00:14 02:08 04:05 RBC 3.47 L (4.30-5.90) m/uL Hgb 11.0 L (13.0-17.5) gm/dL Hct 31.8 L (39.0-53.0) % Plt Count 136 L (150-450) k/uL Lymphocytes # 0.8 L (1.0-4.8) k/uL Sodium (137-145) mmol/L Glucose (74-99) mg/dL POC Glucose (mg/dL) 114 H 118 H (75-99) mg/dL Calcium (8.4-10.2) mg/dL AST (17-59) U/L Total Protein (6.3-8.2) g/dL Albumin (3.5-5.0) g/dL 04/22/21 04/22/21 Range/Units 04:05 06:33 RBC (4.30-5.90) m/uL Hgb (13.0-17.5) gm/dL Hct (39.0-53.0) % Plt Count (150-450) k/uL Lymphocytes # (1.0-4.8) k/uL Sodium 133 L (137-145) mmol/L Glucose 100 H (74-99) mg/dL POC Glucose (mg/dL) 112 H (75-99) mg/dL Calcium 8.3 L (8.4-10.2) mg/dL AST 61 H (17-59) U/L Total Protein 5.0 L (6.3-8.2) g/dL Albumin 2.8 L (3.5-5.0) g/dL Assessment and Plan Assessment: Non-ST elevation NC, s/p CABG on 04/20 - On aspirin, plavix - Started on Lipitor 80 mg daily and metoprolol 25 mg twice a day. 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 - Echocardiogram ordered, shows normal EF 55-60%, no WMA, mild MR/TR, no diastolic dysfunction. - Continue telemetry monitoring and trend troponin. - CT surgery consulted, s/p CABG on 04/20. - Started on amiodarone, amlodipine - LD SSI for strict sugar control to promote wound healing Elevated blood pressure with no known history of hypertension, started the patient on metoprolol, amlodipine. Continue to monitor blood pressure and adjust regimen as needed. Diet-controlled hyperlipidemia, on atorvastatin.
[2021-04-22] MEDS: MAGNESIUM SULFATE-D5W PMX 1 GM in DEXTROSE/WATER 1 100ML.BAG IVPB SCH ×2 (09:56→10:54)
[2021-04-22] MEDS ORDERED: FUROSEMIDE 10 MG/ML 4 ML VIAL IV STA (10:21)
[2021-04-22 12:28] LABS: Glucose,Whole Blood 204 mg/dL (75-99)
[2021-04-22] MEDS: amLODIPine 2.5 MG TAB PO SCH (12:46)
[2021-04-22] MEDS: INSULIN ASPART (NovoLOG) 100 UNIT/ML VIAL SQ SCH ×3 (12:47→21:04)
--- NOTE | 2021-04-22 13:15 | P.PN ---
Subjective Progress Note Date: 04/22/21 Principal diagnosis: Coronary artery disease status post coronary artery bypass grafting This is a 60-year-old white male primarily a patient of Dr. Lobato, admitted on 04/18/2021, his chief complaint was chest pain. Patient was seen by cardiology, and cardiac catheterization showed critical lesion involving RCA, and a critical lesion involving the LAD. His troponins and EKG findings were suggestive of non-ST elevation myocardial infarction, patient was seen by cardiac surgery on consultation, and on 04/20/2021, patient underwent quintuple multiple arterial coronary artery bypass grafting using OLIVER to diagonal then to left anterior descending, left radial artery to the first up to marginal artery then to the second obtuse marginal artery and had reverse saphenous vein graft from the aorta to the RCA. Postoperatively, patient was sent to the ICU, and he was sent on mechanical ventilation. I was notified about this patient after hours, reviewed his chest x-ray, reviewed his ventilator settings, adjustments were made, and patient was successfully extubated at 20:10. Since extubation patient has been doing quite well, no clinical issues to mention overnight, I saw him this morning, the patient seems to be in no distress. He is on 2 L nasal cannula with O2 saturation of 95%. He is presently on IV fluid in the form of 0.9 normal saline at 50 mL per hour, insulin at 0.5 units per hour, nitroglycerin. His cardiac output was 7.3 cardiac index is 3.4. Chest x-ray showed minimal atelectasis, no evidence of active disease. No evidence of congestive heart failure or pneumonia. Patient is relatively asymptomatic and he is very compliant with his incentive spirometry, achieving almost 1000 mL. Patient is in sinus rhythm, hemodynamically stable, not requiring any inotropes or process. The patient is seen today 04/22/2021 in follow-up in the intensive care unit. He is currently resting in bed. Awake and alert in no acute distress. Main complaint is that from chest tube insertion site. Chest x-ray continues to show some atelectasis and a small left pleural effusion. He did have an episode of atrial fibrillation from approximately 4:56 AM this morning. He was initiated on amiodarone currently at 1 mg/m. He is 0.9 normal sinus at 40 miles per hour. [place] catheter has been discontinued. He is maintaining good O2 saturations in the mid 90s on 2 L/m per nasal cannula. He is working well with the incentive spirometer. White count 7.8. Hemoglobin 11.0. Sodium 133. Potassium 4.2. Creatinine 0.78. Glucose 100. AST 61. ALT 18. Magnesium 1.9. He remains on bronchodilators, heparin for DVT prophylaxis. Objective - Vital Signs Vital signs: Vital Signs Temp 98.5 F 04/22/21 12:00 Pulse 80 04/22/21 12:00 Resp 16 04/22/21 12:00 BP 109/69 04/22/21 12:00 Pulse Ox 92 L 04/22/21 12:00 Intake & Output 04/21/21 04/22/21 04/22/21 18:59 06:59 18:59 Intake Total 611.536 885.0 335.5 Output Total 604 877 6854 Balance -353.464 125.0 -949.5 Weight 94.8 kg 95.3 kg Intake: IV 607 785.0 335.5 .9 520 480 280 Amio Bolus 200 Amiodarone 1 mg 69.0 34.5 Cardiac Output 30 Pressure Bags 57 36 21 Intake, IV Titration 4.536 Amount Insulin Regular 100 unit 4.536 In Sodium Chloride 0.9% 100 ml @ Per Protocol IV .Q0M [facility] Rx#:[id number] Oral 100 Output: Chest Tube Drainage 140 170 90 Left Pleural 70 170 90 Mediastinal X 2 30 Right Pleural 40 Urine 222 166 8622 Other: Voiding Method Indwelling Catheter Indwelling Catheter Indwelling Catheter ABP, PAP, CO, CI - Last Documented Arterial Blood Pressure 112/52 Pulmonary Artery Pressure 25/7 Cardiac Output 4.6 Cardiac Index 2.1 - Exam GENERAL EXAM: Alert, very pleasant 58-year-old gentleman, on 2 L nasal cannula, fairly comfortable in no apparent distress. HEAD: Normocephalic. EYES: Normal reaction of pupils, equal size. NOSE: Clear with pink turbinates. THROAT: No erythema or exudates. NECK: No masses, no JVD. CHEST: Sternal dressing dry and intact. Her mother in place. Left-sided chest tube in place. LUNGS: Equal air entry with faint crackles in the bilateral bases left greater than right CVS: S1 and S2 normal with no audible murmur, regular rhythm. ABDOMEN: No hepatosplenomegaly, normal bowel sounds, no guarding or rigidity. SPINE: No scoliosis or deformity SKIN: No rashes CENTRAL NERVOUS SYSTEM: Alert and oriented 3. No focal deficits, tone is normal in all 4 extremities. EXTREMITIES: There is trace peripheral edema. No clubbing, no cyanosis. Peripheral pulses are intact. - Labs CBC & Chem 7: 04/22/21 04:05 04/22/21 04:05 Labs: Abnormal Lab Results - Last 24 Hours (Table) 04/21/21 04/21/21 04/21/21 Range/Units 13:19 14:07 15:59 RBC (4.30-5.90) m/uL Hgb (13.0-17.5) gm/dL Hct (39.0-53.0) % Plt Count (150-450) k/uL Lymphocytes # (1.0-4.8) k/uL Sodium (137-145) mmol/L Glucose (74-99) mg/dL POC Glucose (mg/dL) 138 H 127 H 121 H (75-99) mg/dL Calcium (8.4-10.2) mg/dL AST (17-59) U/L Total Protein (6.3-8.2) g/dL Albumin (3.5-5.0) g/dL 04/21/21 04/21/21 04/21/21 Range/Units 18:11 19:01 20:39 RBC (4.30-5.90) m/uL Hgb (13.0-17.5) gm/dL Hct (39.0-53.0) % Plt Count (150-450) k/uL Lymphocytes # (1.0-4.8) k/uL Sodium (137-145) mmol/L Glucose (74-99) mg/dL POC Glucose (mg/dL) 105 H 106 H 118 H (75-99) mg/dL Calcium (8.4-10.2) mg/dL AST (17-59) U/L Total Protein (6.3-8.2) g/dL Albumin (3.5-5.0) g/dL 04/22/21 04/22/21 04/22/21 Range/Units 00:14 02:08 04:05 RBC 3.47 L (4.30-5.90) m/uL Hgb 11.0 L (13.0-17.5) gm/dL Hct 31.8 L (39.0-53.0) % Plt Count 136 L (150-450) k/uL Lymphocytes # 0.8 L (1.0-4.8) k/uL Sodium (137-145) mmol/L Glucose (74-99) mg/dL POC Glucose (mg/dL) 114 H 118 H (75-99) mg/dL Calcium (8.4-10.2) mg/dL AST (17-59) U/L Total Protein (6.3-8.2) g/dL Albumin (3.5-5.0) g/dL 04/22/21 04/22/21 04/22/21 Range/Units 04:05 06:33 12:27 RBC (4.30-5.90) m/uL Hgb (13.0-17.5) gm/dL Hct (39.0-53.0) % Plt Count (150-450) k/uL Lymphocytes # (1.0-4.8) k/uL Sodium 133 L (137-145) mmol/L Glucose 100 H (74-99) mg/dL POC Glucose (mg/dL) 112 H 204 H (75-99) mg/dL Calcium 8.3 L (8.4-10.2) mg/dL AST 61 H (17-59) U/L Total Protein 5.0 L (6.3-8.2) g/dL Albumin 2.8 L (3.5-5.0) g/dL Assessment and Plan Assessment: 1 Acute non-ST segment elevation myocardial infarction, status post coronary artery bypass grafting 4 2 Paroxysmal atrial fibrillation, common occurrence following open heart surgery 3 Hyperlipidemia 4 Hyperlipidemia 5 Osteoarthritis 6 Postoperative anemia/thrombocytopenia, expected outcome of surgery not requiring transfusion thus far Plan: The patient was seen and evaluated by Dr. Franklin Chest x-ray and labs reviewed Lasix 40 mg IVP 1 today Encourage increased use of the incentive spirometer and cough and deep breathing exercises Increase his activity as tolerated Titrate down the FiO2 as tolerated We will continue to follow and make further recommendations based on his clinical status I, the cosigning physician, performed a history & physical examination of the patient. Lungs sounds with crackles in posterior bases left greater than right. Maintaining good O2 saturations in the 90s on 2 L/m per nasal cannula. I d iscussed the assessment and plan of care with my nurse practitioner, Lindy Butterfield. I attest to the above note as dictated by her.
[2021-04-22 16:34] LABS: Glucose,Whole Blood 69 mg/dL (75-99)
[2021-04-22] MEDS: HYDROcodone/APAP 7.5-325MG 1 EACH TAB PO PRN ×2 (17:10→21:00)
[2021-04-22] MEDS: AMIODARONE 200 MG TAB PO SCH (21:00)
[2021-04-22] MEDS: SENNOSIDES-DOCUSATE SODIUM 1 EACH TAB PO SCH (21:01)
[2021-04-22 21:05] LABS: Glucose,Whole Blood 111 mg/dL (75-99)
[2021-04-23] MEDS ORDERED: AMIODARONE 450 MG in DEXTROSE 5% IN WATER 250 ML IV PRN ×2 (01:00)
[2021-04-23] MEDS: HYDROcodone/APAP 7.5-325MG 1 EACH TAB PO PRN (03:44)
[2021-04-23 05:43] LABS: Basophils % (A) 0 %; Eosinophils # (A) 0.1 k/uL (0-0.7); Eosinophils % (A) 2 %; HCT 32.9 % (39.0-53.0); HGB 11.2 gm/dL (13.0-17.5); Lymphocytes # (A) 0.8 k/uL (1.0-4.8); Lymphocytes % (A) 10 %; MCH 30.8 pg (25.0-35.0); MCHC 34.2 g/dL (31.0-37.0); MCV 90.3 fL (80.0-100.0); Mean Platelet Volume 7.1; Monocytes # (A) 0.6 k/uL (0-1.0); Monocytes % (A) 7 %; Neutrophils # (A) 6.4 k/uL (1.3-7.7); Neutrophils % (A) 79 %; Platelet Count 168 k/uL (150-450); RBC 3.65 m/uL (4.30-5.90); RDW 13.5 % (11.5-15.5); WBC 8.1 k/uL (3.8-10.6)
[2021-04-23 06:00] LABS: ALT 18 U/L (4-49); AST 50 U/L (17-59); African American GFR (CKD) >90 (>60 ml/min/1.73 sqM); Albumin 2.8 g/dL (3.5-5.0); Alkaline Phosphatase 66 U/L (38-126); Anion Gap 5 mmol/L; Blood Urea Nitrogen 18 mg/dL (9-20); Calcium 8.3 mg/dL (8.4-10.2); Carbon Dioxide 26 mmol/L (22-30); Chloride 104 mmol/L (98-107); Glucose 97 mg/dL (74-99); Magnesium 2.2 mg/dL (1.6-2.3); Non-African American GFR(CKD) >90 (>60 ml/min/1.73 sqM); Potassium 3.9 mmol/L (3.5-5.1); Sodium 135 mmol/L (137-145); Total Bilirubin 0.7 mg/dL (0.2-1.3)
[2021-04-23 06:25] LABS: Glucose,Whole Blood 95 mg/dL (75-99)
[2021-04-23] MEDS: INSULIN ASPART (NovoLOG) 100 UNIT/ML VIAL SQ SCH ×4 (06:48→20:29)
[2021-04-23] MEDS: KETOROLAC 15 MG/ML 1 ML VIAL IVP SCH ×3 (06:48→17:48)
[2021-04-23] MEDS: IPRATROPIUM-ALBUTEROL 3 ML NEB INHALATION SCH ×4 (07:14→19:19)
--- NOTE | 2021-04-23 08:09 | XR ---
EXAMINATION TYPE: XR chest 2V DATE OF EXAM: 04/23/2021 COMPARISON: 04/22/2021 HISTORY: 60 years Male. STUDY INDICATION GIVEN: post cardiac surgery . TECHNIQUE: Frontal and lateral chest radiographs IMPRESSION: Interval decrease of bilateral pleural effusions. Trace left pleural effusion remains. No pneumothora x. Bibasilar left greater than right patchy and linear opacities likely on the basis of subsegmental ate lectasis with interval improvement. Cannot entirely exclude infection. Enlarged cardiomediastinal silhouette with postsurgical changes, no significant change. Osseous structures stable in appearance.
[2021-04-23] MEDS ORDERED: FUROSEMIDE 10 MG/ML 2 ML VIAL IV STA (08:47)
--- NOTE | 2021-04-23 08:47 | P.PN ---
Subjective Progress Note Date: 04/23/21 Principal diagnosis: Triple-vessel coronary artery disease, non-STEMI this admission. Past medical history significant for hyperlipidemia, remote history of paroxysmal atrial fibrillation 10-15 years ago, lifetime nonsmoker, strong family history of coronary artery disease including premature coronary artery disease with grandmother diagnosed at 60 years old. Vaccinated against Covid 19 with Pfizer. POD #3 quintuple multiple arterial coronary artery bypass grafting using the left internal mammary artery sequentially to the diagonal artery, then to the left anterior descending artery, left radial artery from the aorta sequentially to the first obtuse marginal artery, then to the second obtuse marginal artery, reverse saphenous vein graft from the aorta to the right coronary artery, exclusion of the left atrial appendage using a 35 mm AtriClip, endoscopic harvesting of the left radial artery, endoscopic harvesting of the right greater saphenous vein from the groin to above the ankle level, intraoperative transesophageal echocardiogram and epi-aortic scanning, intraoperative graft flow measurements using the [place] system. Postoperative acute blood loss anemia and thrombocytopenia, expected given hemodilution and cardiopulmonary bypass pump. Paroxysmal atrial fibrillation, known common occurrence after open heart surgery. The patient was seen in follow-up today 04/23/2021 at his bedside in the intensive care unit. Currently sitting up to the bedside chair, is awake, alert and oriented 3 and is in no acute distress. He denies any complaints of claudy rtness of breath or surgical type pain at this time. He reports he ambulated in the intensive care unit hallway yesterday 4 times with minimal assistance from nursing and therapy staff. He remains hemodynamically stable and is currently on no inotropic support. Oxygen saturations are 96% on room air and he is achieving 1500 mL on his incentive spirometry with encouragement. The patient had paroxysmal atrial fibrillation yesterday, his bedside monitor is currently showing normal sinus rhythm heart rate 72 BPM. No further atrial fibrillation episodes reported. He remains on metoprolol tartrate 25 mg by mouth twice a day and amiodarone 400 mg by mouth twice a day for atrial fibrillation prophylaxis. The patient reports that he has less anxious today, as he felt like he went through a lot yesterday with atrial fibrillation and having all of his chest tubes removed. Objective - Vital Signs Vital signs: Vital Signs Temp 98.4 F 04/23/21 04:00 Pulse 80 04/23/21 07:26 Resp 16 04/23/21 07:00 BP 107/73 04/23/21 07:00 Pulse Ox 99 04/23/21 07:00 Intake & Output 04/22/21 04/23/21 04/23/21 18:59 06:59 18:59 Intake Total 442.5 170 10 Output Total 1860 750 Balance -1417.5 -580 10 Intake: IV 442.5 120 10 .9 390 120 10 Amiodarone 1 mg 34.5 Pressure Bags 18 Tube Feeding 50 Output: Chest Tube Drainage 90 Left Pleural 90 Urine 1770 750 Other: Voiding Method Indwelling Catheter Indwelling Catheter # Voids 1 ABP, PAP, CO, CI - Last Documented Arterial Blood Pressure 112/52 Pulmonary Artery Pressure 25/7 Cardiac Output 4.6 Cardiac Index 2.1 - Exam CONSTITUTIONAL: Sitting up to the bedside chair in the intensive care unit, appears comfortable, cooperative, no apparent acute distress. HEENT: Neck is supple, no JVD, no lymphadenopathy. RESPIRATORY: Lungs sounds essentially clear throughout, diminished to his bilateral bases. Respirations are symmetrical and nonlabored. Currently on room air with oxygen saturations 96%. Able to achieve 1500 mL on his incentive spirometry. Strong cough. CARDIOVASCULAR: Regular rhythm and rate. S1 and S2 present, negative for S3, gallop or murmur. Sternum is stable. Palpable peripheral pulses bilaterally, no edema present. No calf pain or tenderness noted. Heart hugger in place with patient demonstrating appropriate use. Knee-high KRISTY hose and sequential compression devices in place to his bilateral lower extremities. GASTROINTESTINAL: Abdomen soft, nontender, nondistended. Active bowel sounds present 4 quadrants. Tolerating diet. Passing flatus. No guarding or rigidity. GENITOURINARY: Continues to void. 400 mL of urine output in the last 8 hours. INTEGUMENTARY: Skin is warm and dry with no evidence of clubbing or cyanosis. Midline sternal incision clean dry and well approximated, covered with dry intact dressing. Right lower extremity EVH sites well approximated without redness or drainage. Left arm radial artery harvest sites clean, dry and approximated. No drainage or redness is present. NEUROLOGIC: Cranial nerves II through XII intact. No focal deficits. MUSKULOSKELETAL: Able to move all extremities, strength equal bilaterally, generalized weakness. PSYCHIATRIC: Alert and oriented to person place and time, appropriate affect, intact judgment and insight. - Allied health notes Allied health notes reviewed: nursing - Labs CBC & Chem 7: 04/23/21 05:01 04/23/21 05:01 Labs: Abnormal Lab Results - Last 24 Hours (Table) 04/22/21 04/22/21 04/22/21 Range/Units 12:27 16:33 21:04 RBC (4.30-5.90) m/uL Hgb (13.0-17.5) gm/dL Hct (39.0-53.0) % Lymphocytes # (1.0-4.8) k/uL Sodium (137-145) mmol/L POC Glucose (mg/dL) 204 H 69 L 111 H (75-99) mg/dL Calcium (8.4-10.2) mg/dL Total Protein (6.3-8.2) g/dL Albumin (3.5-5.0) g/dL 04/23/21 04/23/21 Range/Units 05:01 05:01 RBC 3.65 L (4.30-5.90) m/uL Hgb 11.2 L (13.0-17.5) gm/dL Hct 32.9 L (39.0-53.0) % Lymphocytes # 0.8 L (1.0-4.8) k/uL Sodium 135 L (137-145) mmol/L POC Glucose (mg/dL) (75-99) mg/dL Calcium 8.3 L (8.4-10.2) mg/dL Total Protein 5.0 L (6.3-8.2) g/dL Albumin 2.8 L (3.5-5.0) g/dL - Imaging and Cardiology Chest x-ray: report reviewed, image reviewed Assessment and Plan Assessment: 1. Symptomatic multivessel coronary artery disease, status post four-vessel coronary artery bypass grafting surgery 2. Non-ST elevated myocardial infarction this admission 3. Hyperlipidemia 4. History of difficulty with swallowing 5. Osteoarthritis 6. Remote history of atrial fibrillation 7. Vaccinated for COVID-19 with Pfizer, recent COVID-19 PCR showed not detected 8. Family history of early onset coronary artery disease with his grandmother having a myocardial infarction at age 60 9. Lifetime nonsmoker, recent FEV1 showed a predicted value of 79% 10. Postoperative acute blood loss anemia and thrombocytopenia, expected given hemodilution and cardiopulmonary bypass pump 11. Paroxysmal atrial fibrillation, a known common occurrence after open heart surgery, status post left atrial appendage ligation Plan: 1. Continue aspirin, statin, Plavix, and beta samantha. Will increase metoprolol tartrate as tolerated. 2. Continue Norvasc for radial artery spasm prophylaxis, please do not discontinue Norvasc without discussing with cardiac surgery. 3. Continue amiodarone 400 mg by mouth twice a day for atrial fibrillation prophylaxis. No need for anticoagulation unless patient is in A. fib for greater than 24 hours or continues to go in and out of A. fib. 4. Encourage incentive spirometry use 10 times every hour while awake. Bronchodilators per pulmonology management. 5. Increase activity, ambulate as tolerated. PT/OT/cardiac rehab following. 6. Will monitor daily labs and chest x-rays. Electrolyte replacement per protocol. 7. GI/DVT prophylaxis. 8. Pain control with current medication regimen. Discontinue [place]. 9. Insulin management per primary care service. Patient is not diabetic with hemoglobin A1c 5.3%, he does need tight blood sugar control to promote healing and prevent infection. 10. Lasix 20 mg IV 1 now. 11. Continue record strict inaccurate I's and O's. Continue daily weights. 12. Transfer to the third floor cardiac stepdown when bed available. 13. More recommendations to follow based on patient's clinical course. Time with Patient: Greater than 30
[2021-04-23] MEDS: ASPIRIN 325 MG TAB PO SCH (08:59)
[2021-04-23] MEDS: ALPRAZolam 0.25 MG TAB PO PRN ×2 (08:59→20:27)
[2021-04-23] MEDS: ACETAMINOPHEN TAB 325 MG TAB PO PRN ×3 (08:59→20:28)
[2021-04-23] MEDS: HEPARIN SODIUM,PORCINE/PF 5,000 UNIT/0.5 ML SYRINGE SQ SCH ×3 (08:59→23:33)
[2021-04-23] MEDS: COLCHICINE 0.6 MG EACH PO SCH (08:59)
[2021-04-23] MEDS: AMIODARONE 200 MG TAB PO SCH ×2 (08:59→20:28)
[2021-04-23] MEDS: ATORVASTATIN 80 MG TAB PO SCH (08:59)
[2021-04-23] MEDS ORDERED: POTASSIUM CHLORIDE ER 20 MEQ TAB.ER PO SCH (09:00)
[2021-04-23] MEDS: PANTOPRAZOLE 40 MG TABLET PO SCH (09:00)
[2021-04-23] MEDS: METOPROLOL TARTRATE 25 MG TAB PO SCH ×2 (09:00→20:28)
[2021-04-23] MEDS: CLOPIDOGREL 75 MG TAB PO SCH (09:00)
[2021-04-23] MEDS: MUPIROCIN 2% OINT 22 GM TUBE NASAL SCH ×2 (09:01→20:34)
[2021-04-23] MEDS: SIMETHICONE 80 MG CHEWABLE PO SCH ×4 (09:15→23:32)
--- NOTE | 2021-04-23 10:23 | P.PN ---
Subjective This is a pleasant 60-year-old male with no significant past medical history other than his father had coronary artery disease in his 60s. The patient presented to the hospital last night with acute chest pain and was found to have a non-ST elevated myocardial infarction. Cardiac catheterization revealed critical 2 vessel disease involving the RCA and LAD which was deemed complicated with multiple lesions and straddling LAD and diagonal branches. Therefore he was recommended to be evaluated for bypass grafting. He is seen and examined resting comfortably lying flat in bed in no acute distress. He denies symptoms of chest discomfort, shortness of breath, dizziness or palpitations. He states at times he does feel a burning sensation in the epigastric region but is unsure if this is related to reflux or chest discomfort. He did refuse Nitropaste this morning as a cost a pretty significant headache. Blood pressure 136/91 heart rate 62 afebrile maintaining oxygen saturation on room air. Laboratory data reviewed, CBC unremarkable, sodium 136, potassium 4.4, creatinine 0.88, LDL 122, HDL 37 and TSH 3.55. Echocardiogram obtained revealed preserved LV systolic function with ejection fraction 55-60%, normal diastolic filling pattern, mild MR and mild TR. 04/21/2021 Pt is s/p quintuple bypass grafting with OLIVER sequentially to the diet, then to the LAD, left radial artery from the aorta to the first OM then to the second OM, reverse SVG from aorta to the RCA and exclusion of the left atrial appendage. He is sitting up in the recliner chair in no acute distress. He has chest tubes in place and heart hugger. He states he is feeling some strain across his chest like a puling, likely post surgical type discomfort. He denies shortness of breath. He feels somewhat light headed but is attributing this to the [place]. Blood pressure 126/59 heart rate 90 afebrile maintaining oxygen saturation on nasal cannula. Laboratory data reviewed, WBC 7.8, hemoglobin 11.8, platelets 152, sodium 135, potassium 4.4, creatinine 0.83 and magnesium 2.1. Cardiac output is 4.8, CVP is 4. PA pressure 25/10. 9/17 Patient seen and examined. Patient had a [place] catheter pulled yesterday. He went into atrial fibrillation yesterday and therefore was placed on amiodarone drip. He went into atrial fibrillation this morning at approximately 4 AM with heart rates only minimally elevated predominantly 90s however felt this and has been somewhat anxious since. A. fib only lasted approximately one hour. However since that time he has felt more chest discomfort with his left chest tube which appears right around the site and feels like it is harder to take a deep breath then. Therefore he is asking for narcotics. He also is feeling somewhat diaphoretic and short of breath. EKG does show mild diffuse ST elevation however no reciprocal changes. His CVP is 6 this morning. He is receiving small doses xanax to help with some anxiety. Chest x-ray read out as mild increase in left pleural effusion. Approximate 400 mL output from left chest tube over last 24 hours. 04/23 Patient seen and examined. Patient states he feels much better than yesterday. No further episodes of the chest pain or pressure, his breathing is much better. He did have the chest tube taken out. He was started on colchicine for what appears to be pericarditis however STs appear improved today. He was given some IV Lasix was morning for mild congestion noted on x-ray this morning. GENERAL: Well-appearing, well-nourished and in no acute distress, mild diaphoresis. NECK: Supple without JVD or thyromegaly. LUNGS: Breath sounds clear to auscultation bilaterally. Respiration equal and unlabored. No wheezes, rales or rhonchi. HEART: Regular rate and rhythm without murmurs, rubs or gallops. S1 and S2 heard. EXTREMITIES: Normal range of motion, no edema. No clubbing or cyanosis. Peripheral pulses intact. ASSESSMENT NSTEMI Dyslipidemia Coronary artery disease status post bypass grafting Pericarditis Postoperative A. fib PLAN Continue current medical regimen. Encourage incentive spirometer use. Continue colchicine for pericarditis Continue with supportive care. Patient appears to be improving day by day. Objective - Vital Signs Vital signs: Vital Signs Temp 98.4 F 04/23/21 04:00 Pulse 80 04/23/21 07:26 Resp 16 04/23/21 07:00 BP 107/73 04/23/21 07:00 Pulse Ox 99 04/23/21 07:00 Intake & Output 04/22/21 04/23/21 04/23/21 18:59 06:59 18:59 Intake Total 442.5 170 10 Output Total 1860 750 Balance -1417.5 -580 10 Intake: IV 442.5 120 10 .9 390 120 10 Amiodarone 1 mg 34.5 Pressure Bags 18 Tube Feeding 50 Output: Chest Tube Drainage 90 Left Pleural 90 Urine 1770 750 Other: Voiding Method Indwelling Catheter Indwelling Catheter # Voids 1 ABP, PAP, CO, CI - Last Documented Arterial Blood Pressure 112/52 Pulmonary Artery Pressure 25/7 Cardiac Output 4.6 Cardiac Index 2.1 - Labs CBC & Chem 7: 04/23/21 05:01 04/23/21 05:01 Labs: Abnormal Lab Results - Last 24 Hours (Table) 04/22/21 04/22/21 04/22/21 Range/Units 12:27 16:33 21:04 RBC (4.30-5.90) m/uL Hgb (13.0-17.5) gm/dL Hct (39.0-53.0) % Lymphocytes # (1.0-4.8) k/uL Sodium (137-145) mmol/L POC Glucose (mg/dL) 204 H 69 L 111 H (75-99) mg/dL Calcium (8.4-10.2) mg/dL Total Protein (6.3-8.2) g/dL Albumin (3.5-5.0) g/dL 04/23/21 04/23/21 Range/Units 05:01 05:01 RBC 3.65 L (4.30-5.90) m/uL Hgb 11.2 L (13.0-17.5) gm/dL Hct 32.9 L (39.0-53.0) % Lymphocytes # 0.8 L (1.0-4.8) k/uL Sodium 135 L (137-145) mmol/L POC Glucose (mg/dL) (75-99) mg/dL Calcium 8.3 L (8.4-10.2) mg/dL Total Protein 5.0 L (6.3-8.2) g/dL Albumin 2.8 L (3.5-5.0) g/dL
[2021-04-23] MEDS: amLODIPine 2.5 MG TAB PO SCH (11:49)
[2021-04-23 11:53] LABS: Glucose,Whole Blood 79 mg/dL (75-99)
--- NOTE | 2021-04-23 12:54 | P.PN ---
Subjective Progress Note Date: 04/23/21 Principal diagnosis: Status post CABG, postoperative day #3. This is a 60-year-old white male primarily a patient of Dr. Lobato, admitted on 04/18/2021, his chief complaint was chest pain. Patient was seen by cardiology, and cardiac catheterization showed critical lesion involving RCA, and a critical lesion involving the LAD. His troponins and EKG findings were suggestive of n on-ST elevation myocardial infarction, patient was seen by cardiac surgery on consultation, and on 04/20/2021, patient underwent quintuple multiple arterial coronary artery bypass grafting using OLIVER to diagonal then to left anterior descending, left radial artery to the first up to marginal artery then to the second obtuse marginal artery and had reverse saphenous vein graft from the aorta to the RCA. Postoperatively, patient was sent to the ICU, and he was sent on mechanical ventilation. I was notified about this patient after hours, reviewed his chest x-ray, reviewed his ventilator settings, adjustments were made, and patient was successfully extubated at 20:10. Since extubation patient has been doing quite well, no clinical issues to mention overnight, I saw him this morning, the patient seems to be in no distress. He is on 2 L nasal cannula with O2 saturation of 95%. He is presently on IV fluid in the form of 0.9 normal saline at 50 mL per hour, insulin at 0.5 units per hour, nitroglycerin. His cardiac output was 7.3 cardiac index is 3.4. Chest x-ray showed minimal atelectasis, no evidence of active disease. No evidence of congestive heart failure or pneumonia. Patient is relatively asymptomatic and he is very compliant with his incentive spirometry, achieving almost 1000 mL. Patient is in sinus rhythm, hemodynamically stable, not requiring any inotropes or process. The patient is seen today 04/22/2021 in follow-up in the intensive care unit. He is currently resting in bed. Awake and alert in no acute distress. Main complaint is that from chest tube insertion site. Chest x-ray continues to show some atelectasis and a small left pleural effusion. He did have an episode of atrial fibrillation from approximately 4:56 AM this morning. He was initiated o n amiodarone currently at 1 mg/m. He is 0.9 normal sinus at 40 miles per hour. [place]-Sharon catheter has been discontinued. He is maintaining good O2 saturations in the mid 90s on 2 L/m per nasal cannula. He is working well with the incentive spirometer. White count 7.8. Hemoglobin 11.0. Sodium 133. Potassium 4.2. Creatinine 0.78. Glucose 100. AST 61. ALT 18. Magnesium 1.9. He remains on bronchodilators, heparin for DVT prophylaxis. Reevaluated today on 04/23/2021, patient remains in the intensive care unit, however he seems to be doing better today compared to yesterday. Patient is not in any distress, he is on 2 L nasal cannula with O2 saturation 98%. He is achieving 1500 mL with his incentive spirometer. His chest tubes have all been removed. His IV fluid is at KVO, patient is in sinus rhythm. Dynamically stable, not requiring any inotropes or any pressors. His CBC is relatively normal left lites are normal. Chest x-ray showed bibasilar atelectasis, left more so than right. There is a trace of left pleural effusion, no pneumothorax Objective - Vital Signs Vital signs: Vital Signs Temp 97.8 F 04/23/21 08:00 Pulse 76 04/23/21 11:28 Resp 16 04/23/21 08:00 BP 111/74 04/23/21 08:00 Pulse Ox 99 04/23/21 08:00 Intake & Output 04/22/21 04/23/21 04/23/21 18:59 06:59 18:59 Intake Total 442.5 170 110 Output Total 1860 750 425 Balance -1417.5 -580 -315 Intake: IV 442.5 120 10 .9 390 120 10 Amiodarone 1 mg 34.5 Pressure Bags 18 Oral 100 Tube Feeding 50 Output: Chest Tube Drainage 90 Left Pleural 90 Urine 1770 750 425 Other: Voiding Method Indwelling Catheter Indwelling Catheter Urinal # Voids 1 2 ABP, PAP, CO, CI - Last Documented Arterial Blood Pressure 112/52 Pulmonary Artery Pressure 25/7 Cardiac Output 4.6 Cardiac Index 2.1 - Exam CONSTITUTIONAL: Revealed a 60-year-old white male in no distress. On 2 L nasal cannula. HEENT: Supple no neck masses no JVD no stridor RESPIRATORY: Symmetrical chest expansion diminished breath sounds at the bases no rhonchi and no wheezes CARDIOVASCULAR: Distant S1 and S2, no S3 gallop, no murmur. GASTROINTESTINAL: Soft nontender no megaly no rebound no guarding. INTEGUMENTARY: Skin is warm and dry , no rashes. NEUROLOGIC: Oriented 3 no gross focal deficit. MUSKULOSKELETAL: No deformities noted limitation range of motion PSYCHIATRIC: Normal mood, affect and normal mental status examination. - Labs CBC & Chem 7: 04/23/21 05:01 04/23/21 05:01 Labs: Abnormal Lab Results - Last 24 Hours (Table) 04/22/21 04/22/21 04/23/21 Range/Units 16:33 21:04 05:01 RBC 3.65 L (4.30-5.90) m/uL Hgb 11.2 L (13.0-17.5) gm/dL Hct 32.9 L (39.0-53.0) % Lymphocytes # 0.8 L (1.0-4.8) k/uL Sodium (137-145) mmol/L POC Glucose (mg/dL) 69 L 111 H (75-99) mg/dL Calcium (8.4-10.2) mg/dL Total Protein (6.3-8.2) g/dL Albumin (3.5-5.0) g/dL 04/23/21 Range/Units 05:01 RBC (4.30-5.90) m/uL Hgb (13.0-17.5) gm/dL Hct (39.0-53.0) % Lymphocytes # (1.0-4.8) k/uL Sodium 135 L (137-145) mmol/L POC Glucose (mg/dL) (75-99) mg/dL Calcium 8.3 L (8.4-10.2) mg/dL Total Protein 5.0 L (6.3-8.2) g/dL Albumin 2.8 L (3.5-5.0) g/dL Assessment and Plan Assessment: Impression: Acute non-ST elevation myocardial infarction on this admission. Status post 4 vessel CABG. Lifelong nonsmoker. Postoperative atelectasis, expected. History of paroxysmal atrial fibrillation. History of degenerative joint disease. Strong family history of coronary artery disease. Postoperative blood loss anemia, expected. Recommendation: Continue aspirin statins and Plavix and beta blockers. Continue to wean oxygen as tolerated. Continue incentive spirometry. Continue bronchodilators. Continue GI and DVT prophylaxis. Ambulate. Possible discharge planning in the next 24 hours Time with Patient: Less than 30
--- NOTE | 2021-04-23 14:54 | P.PN ---
Subjective Progress Note Date: 04/23/21 Principal diagnosis: chest pain Patient is a 60-year-old male with a history of prior paroxysmal atrial fibrillation, and dyslipidemia, coronary artery disease who initially came in as a non-STEMI and has subsequently undergone four-vessel bypass therapy. Patient seen and examined at bedside. He states that he is feeling much better than yesterday. He is no longer having as much pain, shortness of breath, or anxiety. He did take some Xanax today. Still no bowel movement. We discussed the importance of getting up and moving as well as continuing to take his stool softeners. General: Ill-appearing, moderate distress secondary to pain appears at stated age Derm: warm, dry Head: atraumatic, normocephalic, symmetric Eyes: EOMI, no lid lag, anicteric sclera Mouth: no lip lesion, mucus membranes moist Cardiovascular: S1S2 reg, with mild systolic murmur, positive posterior tibial pulse bilateral, Lungs: Rhonchi left base, no rhonchi, no rales , no accessory muscle use Abdominal: soft, nontender to palpation, no guarding, no appreciable organomegaly Ext: no gross muscle atrophy, no edema, no contractures Neuro: CN II-XI grossly intact, no focal neuro deficits Psych: Alert, oriented, appropriate affect 60-year-old male status post 4 vessel bypass Multivessel coronary artery disease Non-ST segment elevated myocardial infarction Paroxysmal atrial fibrillation -Status post 4 vessel Cardiothoracic recommendations -Patient is on aspirin, statin, beta samantha, and Plavix -Norvasc is on secondary to radial artery spasm prophylaxis -Continue with sliding scale insulin for strict blood sugar control postoperatively - lasix 1 today - Amiodarone Postoperative anemia and thrombocytopenia, and anticipated outcome of surgery - Thrombocytopenia, resolved -No indication for transfusion -Follow CBC Dyslipidemia -statin Constipation -Continue with bowel regiment DVT prophylaxis: Heparin Active Medications Generic Name Dose Route Start Last Admin Trade Name Freq PRN Reason Stop Dose Admin Acetaminophen 650 mg 04/21/21 08:11 04/23/21 08:59 Acetaminophen Tab 325 Mg Tab PO 650 mg Q4HR PRN Administration Fever and/ or Pain Albuterol/Ipratropium 3 ml 04/20/21 16:24 Ipratropium-Albuterol 3 Ml Neb INHALATION RT-Q2H PRN Shortness Of Breath Or Wheezing Albuterol/Ipratropium 3 ml 04/21/21 08:00 04/23/21 11:15 Ipratropium-Albuterol 3 Ml Neb INHALATION 3 ml RT-QID EDVIN Administration Alprazolam 0.25 mg 04/22/21 07:05 04/23/21 08:59 Alprazolam 0.25 Mg Tab PO 0.25 mg BID PRN Administration Anxiety Amiodarone HCl 400 mg 04/22/21 21:00 04/23/21 08:59 Amiodarone 200 Mg Tab PO 400 mg BID EDVIN Administration Amlodipine Besylate 2.5 mg 04/21/21 12:00 04/23/21 11:49 Amlodipine 2.5 Mg Tab PO 2.5 mg DAILY@1200 EDVIN Administration Aspirin 325 mg 04/21/21 09:00 04/23/21 08:59 Aspirin 325 Mg Tab PO 325 mg DAILY EDVIN Administration Atorvastatin Calcium 80 mg 04/22/21 09:00 04/23/21 08:59 Atorvastatin 80 Mg Tab PO 80 mg DAILY EDVIN Administration Benzocaine/Menthol 1 each 04/20/21 16:24 Benzocaine/Menthol Lozeng 1 Each Lozenge MUCOUS MEM Q2H PRN Sore Throat Bisacodyl 10 mg 04/21/21 09:00 Bisacodyl 10 Mg Supp RECTAL DAILY PRN Constipation Clopidogrel Bisulfate 75 mg 04/21/21 09:00 04/23/21 09:00 Clopidogrel 75 Mg Tab PO 75 mg DAILY EDVIN Administration Colchicine 0.6 mg 04/23/21 09:00 04/23/21 08:59 Colchicine 0.6 Mg Each PO 0.6 mg DAILY EDVIN Administration Heparin Sodium (Porcine) 5,000 unit 04/21/21 00:00 04/23/21 08:59 Heparin Sodium,Porcine/Pf 5,000 Unit/0.5 Ml Syringe SQ 5,000 unit Q8HR EDVIN Administration Insulin Aspart 0 unit 04/22/21 12:30 04/23/21 11:57 Insulin Aspart (Novolog) 100 Unit/Ml Vial SQ Not Given ACHS [facility] Protocol Ketorolac Tromethamine 30 mg 04/21/21 00:00 04/23/21 11:48 Ketorolac 15 Mg/Ml 1 Ml Vial IVP 04/23/21 20:29 30 mg Q6HR EDVIN Administration Magnesium Hydroxide 2,400 mg 04/21/21 09:00 04/22/21 07:56 Magnesium Hydroxide 2,400 Mg/10 Ml Cup PO 2,400 mg BID PRN Administration Constipation Metoclopramide HCl 10 mg 04/20/21 16:24 04/22/21 07:56 Metoclopramide 5 Mg/Ml 2 Ml Vial IVP 10 mg Q4H PRN Administration Nausea And Vomiting Metoprolol Tartrate 25 mg 04/20/21 21:00 04/23/21 09:00 Metoprolol Tartrate 25 Mg Tab PO 25 mg BID EDVIN Administration Miscellaneous Information 1 each 04/20/21 16:24 Potassium Replacement Protocol 1 Each Misc MISCELLANE DAILY PRN Per Protocol Protocol Miscellaneous Information 1 each 04/20/21 16:24 Magnesium Replacement Protocol 1 Each Misc MISCELLANE DAILY PRN Per Protocol Protocol Miscellaneous Information 1 each 04/20/21 16:24 Phosphorus Replacement Protoco 1 Each Misc MISCELLANE DAILY PRN Per Protocol Protocol Mupirocin 1 applic 04/20/21 21:00 04/23/21 09:01 Mupirocin 2% Oint 22 Gm Tube NASAL 04/23/21 21:01 1 applic BID EDVIN Administration Ondansetron HCl 4 mg 04/20/21 16:24 Ondansetron 4 Mg/2 Ml Vial IVP Q6HR PRN Nausea And Vomiting Pantoprazole Sodium 40 mg 04/22/21 09:00 04/23/21 09:00 Pantoprazole 40 Mg Tablet PO 40 mg DAILY EDVIN Administration Senna/Docusate Sodium 2 each 04/21/21 21:00 04/22/21 21:01 Sennosides-Docusate Sodium 1 Each Tab PO 2 each HS EDVIN Administration Simethicone 40 mg 04/22/21 09:00 04/23/21 14:21 Simethicone 80 Mg Chewable PO 40 mg QID EDVIN Administration Sodium Chloride 10 ml 04/20/21 21:00 04/23/21 09:01 Sodium Chloride 0.9% Flush 10 Ml Syringe IV 10 ml BID EDVIN Administration Objective - Vital Signs Vital signs: Vital Signs Temp 97.6 F 04/23/21 12:00 Pulse 86 04/23/21 12:00 Resp 20 04/23/21 12:00 BP 97/66 04/23/21 12:00 Pulse Ox 98 04/23/21 13:30 Intake & Output 04/22/21 04/23/21 04/23/21 18:59 06:59 18:59 Intake Total 442.5 170 110 Output Total 1860 750 975 Balance -1417.5 -580 -865 Weight 93.1 kg Intake: IV 442.5 120 10 .9 390 120 10 Amiodarone 1 mg 34.5 Pressure Bags 18 Oral 100 Tube Feeding 50 Output: Chest Tube Drainage 90 Left Pleural 90 Urine 1770 750 975 Other: Voiding Method Indwelling Catheter Indwelling Catheter Urinal # Voids 1 1 ABP, PAP, CO, CI - Last Documented Arterial Blood Pressure 112/52 Pulmonary Artery Pressure 25/7 Cardiac Output 4.6 Cardiac Index 2.1 - Labs CBC & Chem 7: 04/23/21 05:01 04/23/21 05:01 Labs: Abnormal Lab Results - Last 24 Hours (Table) 04/22/21 04/22/21 04/23/21 Range/Units 16:33 21:04 05:01 RBC 3.65 L (4.30-5.90) m/uL Hgb 11.2 L (13.0-17.5) gm/dL Hct 32.9 L (39.0-53.0) % Lymphocytes # 0.8 L (1.0-4.8) k/uL Sodium (137-145) mmol/L POC Glucose (mg/dL) 69 L 111 H (75-99) mg/dL Calcium (8.4-10.2) mg/dL Total Protein (6.3-8.2) g/dL Albumin (3.5-5.0) g/dL 04/23/21 Range/Units 05:01 RBC (4.30-5.90) m/uL Hgb (13.0-17.5) gm/dL Hct (39.0-53.0) % Lymphocytes # (1.0-4.8) k/uL Sodium 135 L (137-145) mmol/L POC Glucose (mg/dL) (75-99) mg/dL Calcium 8.3 L (8.4-10.2) mg/dL Total Protein 5.0 L (6.3-8.2) g/dL Albumin 2.8 L (3.5-5.0) g/dL
[2021-04-23 17:07] LABS: Glucose,Whole Blood 84 mg/dL (75-99)
[2021-04-23] MEDS: SENNOSIDES-DOCUSATE SODIUM 1 EACH TAB PO SCH (20:27)
[2021-04-23 20:29] LABS: Glucose,Whole Blood 112 mg/dL (75-99)
[2021-04-24 06:07] LABS: Glucose,Whole Blood 99 mg/dL (75-99)
[2021-04-24] MEDS: INSULIN ASPART (NovoLOG) 100 UNIT/ML VIAL SQ SCH ×4 (06:13→20:44)
[2021-04-24 06:30] LABS: HCT 37.2 % (39.0-53.0); MCH 30.1 pg (25.0-35.0); MCHC 32.3 g/dL (31.0-37.0); MCV 93.4 fL (80.0-100.0); Mean Platelet Volume 7.4; Platelet Count 227 k/uL (150-450); RBC 3.98 m/uL (4.30-5.90); RDW 13.1 % (11.5-15.5); WBC 7.4 k/uL (3.8-10.6)
[2021-04-24 06:45] LABS: Calcium 9.3 mg/dL (8.4-10.2)
[2021-04-24] MEDS: IPRATROPIUM-ALBUTEROL 3 ML NEB INHALATION SCH ×4 (07:49→19:39)
[2021-04-24] MEDS: CLOPIDOGREL 75 MG TAB PO SCH (08:34)
[2021-04-24] MEDS: ATORVASTATIN 80 MG TAB PO SCH (08:34)
[2021-04-24] MEDS: METOPROLOL TARTRATE 25 MG TAB PO SCH ×2 (08:34→20:43)
[2021-04-24] MEDS: ASPIRIN 325 MG TAB PO SCH (08:34)
[2021-04-24] MEDS: AMIODARONE 200 MG TAB PO SCH ×2 (08:34→20:43)
[2021-04-24] MEDS: ALPRAZolam 0.25 MG TAB PO PRN ×2 (08:34→20:43)
[2021-04-24] MEDS: PANTOPRAZOLE 40 MG TABLET PO SCH (08:34)
[2021-04-24] MEDS: HEPARIN SODIUM,PORCINE/PF 5,000 UNIT/0.5 ML SYRINGE SQ SCH ×3 (08:34→20:43)
[2021-04-24] MEDS: ACETAMINOPHEN TAB 325 MG TAB PO PRN ×2 (08:34→19:35)
[2021-04-24] MEDS: COLCHICINE 0.6 MG EACH PO SCH (08:35)
[2021-04-24] MEDS: SIMETHICONE 80 MG CHEWABLE PO SCH ×4 (08:35→21:27)
--- NOTE | 2021-04-24 08:42 | XR ---
EXAMINATION TYPE: XR chest 1V portable DATE OF EXAM: 04/24/2021 Comparison: 04/23/2021 Clinical History: 60-year-old male Postoperative cardiac surgery Findings: Median sternotomy wires are present with post CABG clips in the mediastinum. Heart upper limits of no rmal in size. Focal left basilar opacity relatively unchanged. Impression: Focal left basilar opacity relatively unchanged, probably postoperative atelectasis. Clinically corre late.
--- NOTE | 2021-04-24 09:48 | P.PN ---
Subjective Progress Note Date: 04/24/21 Principal diagnosis: Triple-vessel coronary artery disease, non-STEMI this admission. Past medical history significant for hyperlipidemia, remote history of paroxysmal atrial fibrillation 10-15 years ago, lifetime nonsmoker, strong family history of coronary artery disease including premature coronary artery disease with grandmother diagnosed at 60 years old. Vaccinated against Covid 19 with Pfizer. POD #4 quintuple multiple arterial coronary artery bypass grafting using the left internal mammary artery sequentially to the diagonal artery, then to the left anterior descending artery, left radial artery from the aorta sequentially to the first obtuse marginal artery, then to the second obtuse marginal artery, reverse saphenous vein graft from the aorta to the right coronary artery, exclusion of the left atrial appendage using a 35 mm AtriClip, endoscopic harvesting of the left radial artery, endoscopic harvesting of the right greater saphenous vein from the groin to above the ankle level, intraoperative transesophageal echocardiogram and epi-aortic scanning, intraoperative graft flow measurements using the [employer] system. Postoperative acute blood loss anemia and thrombocytopenia, expected given hemodilution and cardiopulmonary bypass pump. Paroxysmal atrial fibrillation, known common occurrence after open heart surgery. The patient was seen in follow-up today 04/24/2021 at his bedside in the intensive care unit. He is currently sitting up to the bedside chair on the cardiac stepdown unit, is awake, alert and oriented 3 and is in no acute distress. Denies any complaints of pain or shortness of breath at this time although was complaining of episodes of diarrhea. His stool softeners have been discontinued. He remained hemodynamically stable and is currently on no inotropic or pressor supports. Oxygen saturations are 94% on room air and he is achieving 1750 mL on his incentive spirometry with encouragement. The patient reports he has been up ambulating in the neck stepdown unit hallway with minimal assistance from nursing staff and therapy staff. No further episodes of atrial fibrillation have been reported and his remote telemetry showing normal sinus rhythm heart rate 87 bpm this morning. Objective - Vital Signs Vital signs: Vital Signs Temp 97.8 F 04/24/21 08:00 Pulse 74 04/24/21 08:04 Resp 18 04/24/21 08:00 BP 125/77 04/24/21 08:00 Pulse Ox 94 L 04/24/21 08:00 Intake & Output 04/23/21 04/24/21 04/24/21 18:59 06:59 18:59 Intake Total 230 Output Total 1375 Balance -1145 Weight 93.1 kg 92.3 kg Intake: IV 10 .9 10 Oral 220 Output: Urine 1375 Other: Voiding Method Urinal Urinal # Voids 1 3 # Bowel Movements 1 ABP, PAP, CO, CI - Last Documented Arterial Blood Pressure 112/52 Pulmonary Artery Pressure 25/7 Cardiac Output 4.6 Cardiac Index 2.1 - Exam CONSTITUTIONAL: Sitting up to the bedside chair in the intensive care unit, appears comfortable, cooperative, no apparent acute distress. HEENT: Neck is supple, no JVD, no lymphadenopathy. RESPIRATORY: Lungs sounds essentially clear throughout, diminished to his bilateral bases. Respirations are symmetrical and nonlabored. Currently on room air with oxygen saturations 94%. Able to achieve 1750 mL on his incentive spirometry. Strong cough. CARDIOVASCULAR: Regular rhythm and rate. S1 and S2 present, negative for S3, g allop or murmur. Sternum is stable. Palpable peripheral pulses bilaterally, no edema present. No calf pain or tenderness noted. Heart hugger in place with patient demonstrating appropriate use. Knee-high KRISTY hose and sequential compression devices in place to his bilateral lower extremities. GASTROINTESTINAL: Abdomen soft, nontender, nondistended. Active bowel sounds present 4 quadrants. Tolerating diet. Passing flatus. No guarding or rigidity. GENITOURINARY: Continues to void. INTEGUMENTARY: Skin is warm and dry with no evidence of clubbing or cyanosis. Midline sternal incision clean dry and well approximated, covered with dry intact dressing. Right lower extremity EVH sites well approximated without redness or drainage. Left arm radial artery harvest sites clean, dry and approximated. No drainage or redness is present. NEUROLOGIC: Cranial nerves II through XII intact. No focal deficits. MUSKULOSKELETAL: Able to move all extremities, strength equal bilaterally, g eneralized weakness. PSYCHIATRIC: Alert and oriented to person place and time, appropriate affect, intact judgment and insight. - Allied health notes Allied health notes reviewed: nursing - Labs CBC & Chem 7: 04/24/21 05:51 04/24/21 05:51 Labs: Abnormal Lab Results - Last 24 Hours (Table) 04/23/21 04/24/21 04/24/21 Range/Units 20:27 05:51 05:51 RBC 3.98 L (4.30-5.90) m/uL Hgb 12.0 L (13.0-17.5) gm/dL Hct 37.2 L (39.0-53.0) % BUN 23 H (9-20) mg/dL POC Glucose (mg/dL) 112 H (75-99) mg/dL - Imaging and Cardiology Chest x-ray: report reviewed, image reviewed Assessment and Plan Assessment: 1. Symptomatic multivessel coronary artery disease, status post four-vessel coronary artery bypass grafting surgery 2. Non-ST elevated myocardial infarction this admission 3. Hyperlipidemia 4. History of difficulty with swallowing 5. Osteoarthritis 6. Remote history of atrial fibrillation 7. Vaccinated for COVID-19 with [employer], recent COVID-19 PCR showed not detected 8. Family history of early onset coronary artery disease with his grandmother having a myocardial infarction at age 60 9. Lifetime nonsmoker, recent FEV1 showed a predicted value of 79% 10. Postoperative acute blood loss anemia and thrombocytopenia, expected given hemodilution and cardiopulmonary bypass pump 11. Paroxysmal atrial fibrillation, a known common occurrence after open heart surgery, status post left atrial appendage ligation Plan: 1. Continue aspirin, statin, Plavix, and beta samantha. Will increase metoprolol tartrate as tolerated. 2. Continue Norvasc 2.5 mg by mouth daily for radial artery spasm prophylaxis, please do not discontinue Norvasc without discussing with cardiac surgery. 3. Continue amiodarone 400 mg by mouth twice a day for atrial fibrillation prophylaxis. No need for anticoagulation unless patient is in A. fib for greater than 24 hours or continues to go in and out of A. fib. 4. Encourage incentive spirometry use 10 times every hour while awake. Bronchodilators per pulmonology management. 5. Increase activity, ambulate as tolerated. PT/OT/cardiac rehab following. 6. Will monitor daily labs and chest x-rays. Electrolyte replacement per protocol. 7. GI/DVT prophylaxis. 8. Pain control with current medication regimen. 9. Insulin management per primary care service. Patient is not diabetic with hemoglobin A1c 5.3%, he does need tight blood sugar control to promote healing and prevent infection. 10. No diuretics today. 11. Continue record strict inaccurate I's and O's. Continue daily weights. 12. Discharge planning is in place, anticipate discharge home with home health care tomorrow 04/25/2021. 13. More recommendations to follow based on patient's clinical course. Time with Patient: Greater than 30
[2021-04-24 11:52] LABS: Glucose,Whole Blood 90 mg/dL (75-99)
[2021-04-24] MEDS: amLODIPine 2.5 MG TAB PO SCH (12:17)
--- NOTE | 2021-04-24 14:05 | P.PN ---
Subjective Progress Note Date: 04/24/21 Principal diagnosis: Status post CABG, postoperative day #4 This is a 60-year-old white male primarily a patient of Dr. Lobato, admitted on 04/18/2021, his chief complaint was chest pain. Patient was seen by cardiology, and cardiac catheterization showed critical lesion involving RCA, and a critical lesion involving the LAD. His troponins and EKG findings were suggestive of no n-ST elevation myocardial infarction, patient was seen by cardiac surgery on consultation, and on 04/20/2021, patient underwent quintuple multiple arterial coronary artery bypass grafting using OLIVER to diagonal then to left anterior descending, left radial artery to the first up to marginal artery then to the second obtuse marginal artery and had reverse saphenous vein graft from the aorta to the RCA. Postoperatively, patient was sent to the ICU, and he was sent on mechanical ventilation. I was notified about this patient after hours, reviewed his chest x-ray, reviewed his ventilator settings, adjustments were made, and patient was successfully extubated at 20:10. Since extubation patient has been doing quite well, no clinical issues to mention overnight, I saw him this morning, the patient seems to be in no distress. He is on 2 L nasal cannula with O2 saturation of 95%. He is presently on IV fluid in the form of 0.9 normal saline at 50 mL per hour, insulin at 0.5 units per hour, n itroglycerin. His cardiac output was 7.3 cardiac index is 3.4. Chest x-ray showed minimal atelectasis, no evidence of active disease. No evidence of congestive heart failure or pneumonia. Patient is relatively asymptomatic and he is very compliant with his incentive spirometry, achieving almost 1000 mL. Patient is in sinus rhythm, hemodynamically stable, not requiring any inotropes or process. The patient is seen today 04/22/2021 in follow-up in the intensive care unit. He is currently resting in bed. Awake and alert in no acute distress. Main complaint is that from chest tube insertion site. Chest x-ray continues to show some atelectasis and a small left pleural effusion. He did have an episode of atrial fibrillation from approximately 4:56 AM this morning. He was initiated on amiodarone currently at 1 mg/m. He is 0.9 normal sinus at 40 miles per hour. [place] catheter has been discontinued. He is maintaining good O2 saturations in the mid 90s on 2 L/m per nasal cannula. He is working well with the incentive spirometer. White count 7.8. Hemoglobin 11.0. Sodium 133. Potassium 4.2. Creatinine 0.78. Glucose 100. AST 61. ALT 18. Magnesium 1.9. He remains on bronchodilators, heparin for DVT prophylaxis. Reevaluated today on 04/23/2021, patient remains in the intensive care unit, however he seems to be doing better today compared to yesterday. Patient is not in any distress, he is on 2 L nasal cannula with O2 saturation 98%. He is achieving 1500 mL with his incentive spirometer. His chest tubes have all been removed. His IV fluid is at KVO, patient is in sinus rhythm. Dynamically stable, not requiring any inotropes or any pressors. His CBC is relatively normal left lites are normal. Chest x-ray showed bibasilar atelectasis, left more so than right. There is a trace of left pleural effusion, no pneumothorax Reevaluated today on 04/24/2021, patient is doing great, he had intermittent episodes of diarrhea last night, no active pulmonary issues. Presently asymptomatic, and his diarrhea has resolved. Stool softeners have been discontinued. Patient is hemodynamically stable, doing extremely well with incentive spirometry and achieving over 1500 mL. Patient is on room air, and he is eating considered for discharge planning tomorrow. Chest x-ray showed left basilar atelectasis, expected. Objective - Vital Signs Vital signs: Vital Signs Temp 98 F 04/24/21 12:00 Pulse 92 04/24/21 12:00 Resp 20 04/24/21 12:00 BP 111/73 04/24/21 12:00 Pulse Ox 92 L 04/24/21 12:00 Intake & Output 04/23/21 04/24/21 04/24/21 18:59 06:59 18:59 Intake Total 230 Output Total 1375 50 Balance -1145 -50 Weight 93.1 kg 92.3 kg Intake: IV 10 .9 10 Oral 220 Output: Urine 1375 50 Other: Voiding Method Urinal Urinal # Voids 1 3 # Bowel Movements 1 ABP, PAP, CO, CI - Last Documented Arterial Blood Pressure 112/52 Pulmonary Artery Pressure 25/7 Cardiac Output 4.6 Cardiac Index 2.1 - Exam CONSTITUTIONAL: Revealed a 60-year-old white male in no distress. On room air. HEENT: Supple no neck masses no JVD no stridor RESPIRATORY: Symmetrical chest expansion diminished breath sounds at the bases no rhonchi and no wheezes CARDIOVASCULAR: Distant S1 and S2, no S3 gallop, no murmur. GASTROINTESTINAL: Soft nontender no megaly no rebound no guarding. INTEGUMENTARY: Skin is warm and dry , no rashes. NEUROLOGIC: Oriented 3 no gross focal deficit. MUSKULOSKELETAL: No deformities noted limitation range of motion PSYCHIATRIC: Normal mood, affect and normal mental status examination. - Labs CBC & Chem 7: 04/24/21 05:51 04/24/21 05:51 Labs: Abnormal Lab Results - Last 24 Hours (Table) 04/23/21 04/24/21 04/24/21 Range/Units 20:27 05:51 05:51 RBC 3.98 L (4.30-5.90) m/uL Hgb 12.0 L (13.0-17.5) gm/dL Hct 37.2 L (39.0-53.0) % BUN 23 H (9-20) mg/dL POC Glucose (mg/dL) 112 H (75-99) mg/dL Assessment and Plan Assessment: Impression: Acute non-ST elevation myocardial infarction on this admission. Status post 4 vessel CABG. Lifelong nonsmoker. Postoperative atelectasis, expected. History of paroxysmal atrial fibrillation. History of degenerative joint disease. Strong family history of coronary artery disease. Postoperative blood loss anemia, expected. Recommendation: Continue aspirin statins and Plavix and beta blockers. Continue incentive spirometry. Continue bronchodilators. Continue GI and DVT prophylaxis. Continue to ambulate. Hold stool softeners.. Patient will be discharged in a.m. Time with Patient: Less than 30
--- NOTE | 2021-04-24 16:09 | P.PN ---
Subjective Progress Note Date: 04/24/21 (Delayed charting seen on 10:30) Principal diagnosis: chest pain Patient is a 60-year-old male with a history of prior paroxysmal atrial fibrillation, and dyslipidemia, coronary artery disease who initially came in as a non-STEMI and has subsequently undergone four-vessel bypass therapy. Patient seen and examined at bedside. States that he feels very tired and worn out today. He reports that he had 4-5 liquid bowel movements yesterday after taking multiple stool softeners. He currently denies any nausea, vomiting, abdominal cramping. He is very concerned about C. diff. We discussed that it would be normal to have liquid bowel movements after taking laxatives. General: Nontoxic, no acute distress, appears at stated age Derm: warm, dry Head: atraumatic, normocephalic, symmetric Eyes: EOMI, no lid lag, anicteric sclera Mouth: no lip lesion, mucus membranes moist Cardiovascular: S1S2 reg, with mild systolic murmur, positive posterior tibial pulse bilateral, Lungs: Clear to auscultation bilateral , no accessory muscle use Abdominal: soft, nontender to palpation, no guarding, no appreciable organomegaly Ext: no gross muscle atrophy, no edema, no contractures Neuro: CN II-XI grossly intact, no focal neuro deficits Psych: Alert, oriented, appropriate affect 60-year-old male status post 4 vessel bypass Multivessel coronary artery disease Non-ST segment elevated myocardial infarction Paroxysmal atrial fibrillation -Status post 4 vessel Cardiothoracic recommendations -Patient is on aspirin, statin, beta samantha, and Plavix -Norvasc is on secondary to radial artery spasm prophylaxis -Continue with sliding scale insulin for strict blood sugar control postoperatively - Amiodarone Postoperative anemia and thrombocytopenia, and anticipated outcome of surgery - Thrombocytopenia, resolved -No indication for transfusion -Follow CBC Dyslipidemia -statin Constipation -Continue with bowel regiment DVT prophylaxis: Heparin Active Medications Generic Name Dose Route Start Last Admin Trade Name Freq PRN Reason Stop Dose Admin Acetaminophen 650 mg 04/21/21 08:11 04/24/21 08:34 Acetaminophen Tab 325 Mg Tab PO 650 mg Q4HR PRN Administration Fever and/ or Pain Albuterol/Ipratropium 3 ml 04/20/21 16:24 Ipratropium-Albuterol 3 Ml Neb INHALATION RT-Q2H PRN Shortness Of Breath Or Wheezing Albuterol/Ipratropium 3 ml 04/21/21 08:00 04/24/21 15:20 Ipratropium-Albuterol 3 Ml Neb INHALATION 3 ml RT-QID EDVIN Administration Alprazolam 0.25 mg 04/22/21 07:05 04/24/21 08:34 Alprazolam 0.25 Mg Tab PO 0.25 mg BID PRN Administration Anxiety Amiodarone HCl 400 mg 04/22/21 21:00 04/24/21 08:34 Amiodarone 200 Mg Tab PO 400 mg BID EDVIN Administration Amlodipine Besylate 2.5 mg 04/21/21 12:00 04/24/21 12:17 Amlodipine 2.5 Mg Tab PO 2.5 mg DAILY@1200 EDVIN Administration Aspirin 325 mg 04/21/21 09:00 04/24/21 08:34 Aspirin 325 Mg Tab PO 325 mg DAILY EDVIN Administration Atorvastatin Calcium 80 mg 04/22/21 09:00 04/24/21 08:34 Atorvastatin 80 Mg Tab PO 80 mg DAILY EDVIN Administration Benzocaine/Menthol 1 each 04/20/21 16:24 Benzocaine/Menthol Lozeng 1 Each Lozenge MUCOUS MEM Q2H PRN Sore Throat Clopidogrel Bisulfate 75 mg 04/21/21 09:00 04/24/21 08:34 Clopidogrel 75 Mg Tab PO 75 mg DAILY EDVIN Administration Colchicine 0.6 mg 04/23/21 09:00 04/24/21 08:35 Colchicine 0.6 Mg Each PO 0.6 mg DAILY EDVIN Administration Heparin Sodium (Porcine) 5,000 unit 04/21/21 00:00 04/24/21 08:34 Heparin Sodium,Porcine/Pf 5,000 Unit/0.5 Ml Syringe SQ 5,000 unit Q8HR EDVIN Administration Insulin Aspart 0 unit 04/22/21 12:30 04/24/21 12:17 Insulin Aspart (Novolog) 100 Unit/Ml Vial SQ Not Given ACHS [facility] Protocol Magnesium Hydroxide 2,400 mg 04/21/21 09:00 04/22/21 07:56 Magnesium Hydroxide 2,400 Mg/10 Ml Cup PO 2,400 mg BID PRN Administration Constipation Metoclopramide HCl 10 mg 04/20/21 16:24 04/22/21 07:56 Metoclopramide 5 Mg/Ml 2 Ml Vial IVP 10 mg Q4H PRN Administration Nausea And Vomiting Metoprolol Tartrate 25 mg 04/20/21 21:00 04/24/21 08:34 Metoprolol Tartrate 25 Mg Tab PO 25 mg BID EDVIN Administration Miscellaneous Information 1 each 04/20/21 16:24 Potassium Replacement Protocol 1 Each [facility] [place] MISCELLANE DAILY PRN Per Protocol Protocol Miscellaneous Information 1 each 04/20/21 16:24 Magnesium Replacement Protocol 1 Each [facility] [place] MISCELLANE DAILY PRN Per Protocol Protocol Miscellaneous Information 1 each 04/20/21 16:24 Phosphorus Replacement Protoco 1 Each [facility] [place] MISCELLANE DAILY PRN Per Protocol Protocol Ondansetron HCl 4 mg 04/20/21 16:24 Ondansetron 4 Mg/2 Ml Vial IVP Q6HR PRN Nausea And Vomiting Pantoprazole Sodium 40 mg 04/22/21 09:00 04/24/21 08:34 Pantoprazole 40 Mg Tablet PO 40 mg DAILY EDVIN Administration Simethicone 40 mg 04/22/21 09:00 04/24/21 14:36 Simethicone 80 Mg Chewable PO Not Given QID EDVIN Sodium Chloride 10 ml 04/20/21 21:00 04/24/21 08:36 Sodium Chloride 0.9% Flush 10 Ml Syringe IV 10 ml BID EDVIN Administration Objective - Vital Signs Vital signs: Vital Signs Temp 98 F 04/24/21 12:00 Pulse 76 04/24/21 15:31 Resp 20 04/24/21 12:00 BP 111/73 04/24/21 12:00 Pulse Ox 92 L 04/24/21 12:00 Intake & Output 04/23/21 04/24/21 04/24/21 18:59 06:59 18:59 Intake Total 230 50 Output Total 1375 250 Balance -1145 -200 Weight 93.1 kg 92.3 kg Intake: IV 10 .9 10 Oral 220 50 Output: Urine 1375 250 Other: Voiding Method Urinal Urinal # Voids 1 3 # Bowel Movements 1 ABP, PAP, CO, CI - Last Documented Arterial Blood Pressure 112/52 Pulmonary Artery Pressure 25/7 Cardiac Output 4.6 Cardiac Index 2.1 - Labs CBC & Chem 7: 04/24/21 05:51 04/24/21 05:51 Labs: Abnormal Lab Results - Last 24 Hours (Table) 04/23/21 04/24/21 04/24/21 Range/Units 20:27 05:51 05:51 RBC 3.98 L (4.30-5.90) m/uL Hgb 12.0 L (13.0-17.5) gm/dL Hct 37.2 L (39.0-53.0) % BUN 23 H (9-20) mg/dL POC Glucose (mg/dL) 112 H (75-99) mg/dL
[2021-04-24 17:07] LABS: Glucose,Whole Blood 106 mg/dL (75-99)
--- NOTE | 2021-04-24 18:01 | P.PN ---
Subjective This is a pleasant 60-year-old male with no significant past medical history other than his father had coronary artery disease in his 60s. The patient presented to the hospital last night with acute chest pain and was found to have a non-ST elevated myocardial infarction. Cardiac catheterization revealed critical 2 vessel disease involving the RCA and LAD which was deemed complicated with multiple lesions and straddling LAD and diagonal branches. Therefore he was recommended to be evaluated for bypass grafting. He is seen and examined resting comfortably lying flat in bed in no acute distress. He denies symptoms of chest discomfort, shortness of breath, dizziness or palpitations. He states at times he does feel a burning sensation in the epigastric region but is unsure if this is related to reflux or chest discomfort. He did refuse Nitropaste this morning as a cost a pretty significant headache. Blood pressure 136/91 heart rate 62 afebrile maintaining oxygen saturation on room air. Laboratory data reviewed, CBC unremarkable, sodium 136, potassium 4.4, creatinine 0.88, LDL 122, HDL 37 and TSH 3.55. Echocardiogram obtained revealed preserved LV systolic function with ejection fraction 55-60%, normal diastolic filling pattern, mild MR and mild TR. 04/21/2021 Pt is s/p quintuple bypass grafting with OLIVER sequentially to the diet, then to the LAD, left radial artery from the aorta to the first OM then to the second OM, reverse SVG from aorta to the RCA and exclusion of the left atrial appendage. He is sitting up in the recliner chair in no acute distress. He has chest tubes in place and heart hugger. He states he is feeling some strain across his chest like a puling, likely post surgical type discomfort. He denies shortness of breath. He feels somewhat light headed but is attributing this to the norco. Blood pressure 126/59 heart rate 90 afebrile maintaining oxygen saturation on nasal cannula. Laboratory data reviewed, WBC 7.8, hemoglobin 11.8, platelets 152, sodium 135, potassium 4.4, creatinine 0.83 and magnesium 2.1. Cardiac output is 4.8, CVP is 4. PA pressure 25/10. 9/17 Patient seen and examined. Patient had a [place] catheter pulled yesterday. He went into atrial fibrillation yesterday and therefore was placed on amiodarone drip. He went into atrial fibrillation this morning at approximately 4 AM with heart rates only minimally elevated predominantly 90s however felt this and has been somewhat anxious since. A. fib only lasted approximately one hour. However since that time he has felt more chest discomfort with his left chest tube which appears right around the site and feels like it is harder to take a deep breath then. Therefore he is asking for narcotics. He also is feeling somewhat diaphoretic and short of breath. EKG does show mild diffuse ST elevation however no reciprocal changes. His CVP is 6 this morning. He is receiving small doses xanax to help with some anxiety. Chest x-ray read out as mild increase in left pleural effusion. Approximate 400 mL output from left chest tube over last 24 hours. 04/23 Patient seen and examined. Patient states he feels much better than yesterday. No further episodes of the chest pain or pressure, his breathing is much better. He did have the chest tube taken out. He was started on colchicine for what appears to be pericarditis however STs appear improved today. He was given some IV Lasix was morning for mild congestion noted on x-ray this morning. 04/24 Patient seen and examined. Patient admits to some loose stools however somewhat better in the afternoon. He denies any chest pain or pressure. He does have occasional dyspnea however attributes that mainly to anxiety. This overall he feels somewhat better today. GENERAL: Well-appearing, well-nourished and in no acute distress NECK: Supple without JVD or thyromegaly. LUNGS: Breath sounds clear to auscultation bilaterally. Respiration equal and unlabored. No wheezes, rales or rhonchi. HEART: Regular rate and rhythm without murmurs, rubs or gallops. S1 and S2 heard. EXTREMITIES: Normal range of motion, no edema. No clubbing or cyanosis. Peripheral pulses intact. ASSESSMENT NSTEMI Dyslipidemia Coronary artery disease status post bypass grafting Postoperative A. fib PLAN Continue current medical regimen. Encourage incentive spirometer use. Stop colchicine as is not having significant chest pain and is having loose stools Continue with supportive care. Patient appears to be improving day by day. Objective - Vital Signs Vital signs: Vital Signs Temp 98.5 F 04/24/21 16:00 Pulse 88 04/24/21 16:00 Resp 16 04/24/21 16:00 BP 110/71 04/24/21 16:00 Pulse Ox 95 04/24/21 16:00 Intake & Output 04/23/21 04/24/21 04/24/21 18:59 06:59 18:59 Intake Total 230 690 Output Total 1375 550 Balance -1145 140 Weight 93.1 kg 92.3 kg Intake: IV 10 .9 10 Oral 220 690 Output: Urine 1375 550 Other: Voiding Method Urinal Urinal # Voids 1 3 # Bowel Movements 1 ABP, PAP, CO, CI - Last Documented Arterial Blood Pressure 112/52 Pulmonary Artery Pressure 25/7 Cardiac Output 4.6 Cardiac Index 2.1 - Labs CBC & Chem 7: 04/24/21 05:51 04/24/21 05:51 Labs: Abnormal Lab Results - Last 24 Hours (Table) 04/23/21 04/24/21 04/24/21 Range/Units 20:27 05:51 05:51 RBC 3.98 L (4.30-5.90) m/uL Hgb 12.0 L (13.0-17.5) gm/dL Hct 37.2 L (39.0-53.0) % BUN 23 H (9-20) mg/dL POC Glucose (mg/dL) 112 H (75-99) mg/dL 04/24/21 Range/Units 16:43 RBC (4.30-5.90) m/uL Hgb (13.0-17.5) gm/dL Hct (39.0-53.0) % BUN (9-20) mg/dL POC Glucose (mg/dL) 106 H (75-99) mg/dL
[2021-04-24 20:23] LABS: Glucose,Whole Blood 117 mg/dL (75-99)
[2021-04-25 05:31] LABS: Glucose,Whole Blood 105 mg/dL (75-99)
[2021-04-25] MEDS: INSULIN ASPART (NovoLOG) 100 UNIT/ML VIAL SQ SCH ×2 (05:40→12:06)
--- NOTE | 2021-04-25 08:06 | P.PN ---
Subjective Progress Note Date: 04/25/21 Principal diagnosis: chest pain Patient is a 60-year-old male with a history of prior paroxysmal atrial fibrillation, and dyslipidemia, coronary artery disease who initially came in as a non-STEMI and has subsequently undergone four-vessel bypass therapy. Patient seen and examined at bedside. Walked 3 times yesterday. Pain only with deep inspiration, no pain when laying on back, still with lots of frequent loose stools. No nausea, no belly pain General: Nontoxic, no acute distress, appears at stated age Derm: warm, dry Head: atraumatic, normocephalic, symmetric Eyes: EOMI, no lid lag, anicteric sclera Mouth: no lip lesion, mucus membranes moist Cardiovascular: S1S2 reg, with mild systolic murmur, positive posterior tibial pulse bilateral, Lungs: Decreased bs bilateral , no accessory muscle use Abdominal: soft, nontender to palpation, no guarding, no appreciable organomegaly Ext: no gross muscle atrophy, no edema, no contractures Neuro: CN II-XI grossly intact, no focal neuro deficits Psych: Alert, oriented, appropriate affect 60-year-old male status post 4 vessel bypass Multivessel coronary artery disease Non-ST segment elevated myocardial infarction Paroxysmal atrial fibrillation -Status post 4 vessel Cardiothoracic recommendations -Patient is on aspirin, statin, beta samantha, and Plavix -Norvasc is on secondary to radial artery spasm prophylaxis -Continue with sliding scale insulin for strict blood sugar control postoperatively - Amiodarone Diarrhea - off schedule stool softners - started with colchicine, will stop if okay with CT surgery as per cardiology note okay to discontinue and pain well controlled Postoperative anemia and thrombocytopenia, and anticipated outcome of surgery - Thrombocytopenia, resolved -No indication for transfusion -Follow CBC - no need for oral iron as HgB near normal Dyslipidemia -statin Constipation, resolved - as needed stool softners Patient medically optimized for discharge pending labs. Follow-up Dr. Lobato in 2 weeks DVT prophylaxis: Heparin Active Medications Generic Name Dose Route Start Last Admin Trade Name Freq PRN Reason Stop Dose Admin Acetaminophen 650 mg 04/21/21 08:11 04/24/21 19:35 Acetaminophen Tab 325 Mg Tab PO 650 mg Q4HR PRN Administration Fever and/ or Pain Albuterol/Ipratropium 3 ml 04/20/21 16:24 Ipratropium-Albuterol 3 Ml Neb INHALATION RT-Q2H PRN Shortness Of Breath Or Wheezing Albuterol/Ipratropium 3 ml 04/21/21 08:00 04/24/21 19:39 Ipratropium-Albuterol 3 Ml Neb INHALATION 3 ml RT-QID EDVIN Administration Alprazolam 0.25 mg 04/22/21 07:05 04/24/21 20:43 Alprazolam 0.25 Mg Tab PO 0.25 mg BID PRN Administration Anxiety Amiodarone HCl 400 mg 04/22/21 21:00 04/24/21 20:43 Amiodarone 200 Mg Tab PO 400 mg BID EDVIN Administration Amlodipine Besylate 2.5 mg 04/21/21 12:00 04/24/21 12:17 Amlodipine 2.5 Mg Tab PO 2.5 mg DAILY@1200 EDVIN Administration Aspirin 325 mg 04/21/21 09:00 04/24/21 08:34 Aspirin 325 Mg Tab PO 325 mg DAILY EDVIN Administration Atorvastatin Calcium 80 mg 04/22/21 09:00 04/24/21 08:34 Atorvastatin 80 Mg Tab PO 80 mg DAILY EDVIN Administration Benzocaine/Menthol 1 each 04/20/21 16:24 Benzocaine/Menthol Lozeng 1 Each Lozenge MUCOUS MEM Q2H PRN Sore Throat Clopidogrel Bisulfate 75 mg 04/21/21 09:00 04/24/21 08:34 Clopidogrel 75 Mg Tab PO 75 mg DAILY EDVIN Administration Colchicine 0.6 mg 04/23/21 09:00 04/24/21 08:35 Colchicine 0.6 Mg Each PO 0.6 mg DAILY EDVIN Administration Heparin Sodium (Porcine) 5,000 unit 04/21/21 00:00 04/24/21 20:43 Heparin Sodium,Porcine/Pf 5,000 Unit/0.5 Ml Syringe SQ 5,000 unit Q8HR EDVIN Administration Insulin Aspart 0 unit 04/22/21 12:30 04/25/21 05:40 Insulin Aspart (Novolog) 100 Unit/Ml Vial SQ Not Given ACHS [facility] Protocol Magnesium Hydroxide 2,400 mg 04/21/21 09:00 04/22/21 07:56 Magnesium Hydroxide 2,400 Mg/10 Ml Cup PO 2,400 mg BID PRN Administration Constipation Metoclopramide HCl 10 mg 04/20/21 16:24 04/22/21 07:56 Metoclopramide 5 Mg/Ml 2 Ml Vial IVP 10 mg Q4H PRN Administration Nausea And Vomiting Metoprolol Tartrate 25 mg 04/20/21 21:00 04/24/21 20:43 Metoprolol Tartrate 25 Mg Tab PO 25 mg BID EDVIN Administration Miscellaneous Information 1 each 04/20/21 16:24 Potassium Replacement Protocol 1 Each [facility] MISCELLANE DAILY PRN Per Protocol Protocol Miscellaneous Information 1 each 04/20/21 16:24 Magnesium Replacement Protocol 1 Each [facility] MISCELLANE DAILY PRN Per Protocol Protocol Miscellaneous Information 1 each 04/20/21 16:24 Phosphorus Replacement Protoco 1 Each [facility] MISCELLANE DAILY PRN Per Protocol Protocol Ondansetron HCl 4 mg 04/20/21 16:24 Ondansetron 4 Mg/2 Ml Vial IVP Q6HR PRN Nausea And Vomiting Pantoprazole Sodium 40 mg 04/22/21 09:00 04/24/21 08:34 Pantoprazole 40 Mg Tablet PO 40 mg DAILY EDVIN Administration Sodium Chloride 10 ml 04/20/21 21:00 04/24/21 20:44 Sodium Chloride 0.9% Flush 10 Ml Syringe IV Not Given BID EDVIN Objective - Vital Signs Vital signs: Vital Signs Temp 98.4 F 04/25/21 00:00 Pulse 68 04/25/21 04:00 Resp 16 04/25/21 04:00 BP 124/86 04/25/21 04:00 Pulse Ox 94 L 04/25/21 04:00 Intake & Output 04/24/21 04/25/21 04/25/21 18:59 06:59 18:59 Intake Total 690 240 Output Total 550 450 Balance 140 -210 Weight 91.1 kg Intake: Oral 690 240 Output: Urine 550 450 Stool 0 Other: Voiding Method Urinal # Voids 1 # Bowel Movements 1 1 ABP, PAP, CO, CI - Last Documented Arterial Blood Pressure 112/52 Pulmonary Artery Pressure 25/7 Cardiac Output 4.6 Cardiac Index 2.1 - Labs CBC & Chem 7: 04/24/21 05:51 04/24/21 05:51 Labs: Abnormal Lab Results - Last 24 Hours (Table) 04/24/21 04/24/21 04/25/21 Range/Units 16:43 20:22 05:30 POC Glucose (mg/dL) 106 H 117 H 105 H (75-99) mg/dL
--- NOTE | 2021-04-25 08:14 | XR ---
EXAMINATION TYPE: XR chest 1V portable DATE OF EXAM: 04/25/2021 Comparison: 04/24/2021 Clinical History: 60-year-old male Postoperative CABG Findings: Median sternotomy wires are present with postsurgical clips in the mediastinum. Heart upper limits of normal in size. Patchy opacity remains at the left base without significant change. Impression: Post-CABG changes. Patchy left basilar opacity remains, likely postoperative atelectasis.
[2021-04-25] MEDS: IPRATROPIUM-ALBUTEROL 3 ML NEB INHALATION SCH ×3 (08:20→14:57)
[2021-04-25] MEDS: HEPARIN SODIUM,PORCINE/PF 5,000 UNIT/0.5 ML SYRINGE SQ SCH (08:38)
[2021-04-25] MEDS: METOPROLOL TARTRATE 25 MG TAB PO SCH (08:39)
[2021-04-25] MEDS: AMIODARONE 200 MG TAB PO SCH (08:39)
[2021-04-25] MEDS: PANTOPRAZOLE 40 MG TABLET PO SCH (08:39)
[2021-04-25] MEDS: ASPIRIN 325 MG TAB PO SCH (08:39)
[2021-04-25] MEDS: CLOPIDOGREL 75 MG TAB PO SCH (08:39)
[2021-04-25] MEDS: ATORVASTATIN 80 MG TAB PO SCH (08:39)
--- NOTE | 2021-04-25 08:46 | P.PN ---
Subjective Progress Note Date: 04/25/21 Principal diagnosis: Triple-vessel coronary artery disease, non-STEMI this admission, previous medical history of hyperlipidemia, remote history of paroxysmal atrial fibrillation 10-15 years ago, never smoker, strong family history of coronary artery disease including premature coronary artery disease with grandmother diagnosed at 60 years old. Vaccinated against Covid 19 with Pfizer POD #5 quintuple multiple arterial coronary artery bypass grafting using the left internal mammary artery sequentially to the diagonal artery, then to the left anterior descending artery, left radial artery from the aorta sequentially to the first obtuse marginal artery, then to the second obtuse marginal artery, reverse saphenous vein graft from the aorta to the right coronary artery, ex clusion of the left atrial appendage using a 35 mm AtriClip, endoscopic harvesting of the left radial artery, endoscopic harvesting of the right greater saphenous vein from the groin to above the ankle level, intraoperative transesophageal echocardiogram and epi-aortic scanning, intraoperative graft flow measurements using the [employer] system Postoperative acute blood loss anemia and thrombocytopenia, expected given hemodilution and cardiopulmonary bypass pump Paroxysmal atrial fibrillation, known common occurrence after open heart surgery The patient was seen and examined this morning on the cardiac stepdown unit with Dr. Obregon. States post surgical pain is mostly controlled on current medication regimen, denies shortness of breath. Remains in sinus rhythm and hemodynamically stable with no further episodes of atrial fibrillation. He is oxygenating well on room air. Actively using incentive spirometer and achieving 1750 mL. Urine output adequate. Patient is highly anxious, requesting Xanax at discharge as he said he feels this helps with his anxiety. He has been ambulatory in the hallway with minimal assistance. No other new concerns. Objective - Vital Signs Vital signs: Vital Signs Temp 98.4 F 04/25/21 00:00 Pulse 85 04/25/21 08:23 Resp 16 04/25/21 04:00 BP 124/86 04/25/21 04:00 Pulse Ox 94 L 04/25/21 04:00 Intake & Output 04/24/21 04/25/21 04/25/21 18:59 06:59 18:59 Intake Total 690 240 Output Total 550 450 Balance 140 -210 Weight 91.1 kg Intake: Oral 690 240 Output: Urine 550 450 Stool 0 Other: Voiding Method Urinal # Voids 1 # Bowel Movements 1 1 ABP, PAP, CO, CI - Last Documented Arterial Blood Pressure 112/52 Pulmonary Artery Pressure 25/7 Cardiac Output 4.6 Cardiac Index 2.1 - Exam CONSTITUTIONAL: Appears calm and cooperative RESPIRATORY: Lungs sounds diminished bilaterally. Respirations even, nonlabored. Currently on room air with oxygen saturation 94%. Able to achieve 1750 mL on incentive spirometry. Strong nonproductive cough. CARDIOVASCULAR: S1, S2 present. Regular rate and rhythm, sinus rhythm on tele metry. Sternum stable. Palpable peripheral pulses bilaterally. No edema present. No calf pain or tenderness noted. Heart hugger in place with patient demonstrating appropriate use. Antiembolism stockings, SCDs present. GASTROINTESTINAL: Abdomen soft, nontender, nondistended. Active bowel sounds present 4 quadrants. Tolerating diet. Positive bowel movement GENITOURINARY: Continues to void clear, yellow urine INTEGUMENTARY: Skin is warm and dry with evidence of good perfusion. Anterior chest incision well approximated. Left lower extremity EVH site and left radial artery harvest site well approximated without redness or drainage. NEUROLOGIC: Cranial nerves II through XII intact MUSKULOSKELETAL: Able to move all extremities, strength equal bilaterally PSYCHIATRIC: Alert and oriented to person place and time, still slightly anxious - Allied health notes Allied health notes reviewed: nursing - Labs CBC & Chem 7: 04/24/21 05:51 04/24/21 05:51 Labs: Abnormal Lab Results - Last 24 Hours (Table) 04/24/21 04/24/21 04/25/21 Range/Units 16:43 20:22 05:30 POC Glucose (mg/dL) 106 H 117 H 105 H (75-99) mg/dL - Imaging and Cardiology Chest x-ray: report reviewed, image reviewed Assessment and Plan Assessment: 1. Triple-vessel coronary artery disease, non-STEMI this admission, status post four-vessel CABG 2. History of hyperlipidemia, cholesterol 176, LDL 122 3. Remote history of paroxysmal atrial fibrillation 10-15 years ago 4. Never smoker, preoperative FEV1 79% of predicted 5. Osteoarthritis 6. Strong family history of coronary artery disease including premature coronary artery disease with grandmother with CA at 60 years old. 7. Postoperative acute blood loss anemia and thrombocytopenia, expected given hemodilution and cardiopulmonary bypass pump 8. Paroxysmal atrial fibrillation, known common occurrence after open heart surgery, status post left atrial appendage ligation Plan: 1. Continue aspirin, statin, Plavix, beta samantha therapy. 2. Continue Norvasc for radial artery spasm prophylaxis, increased to 5 mg today, do not discontinue CCB without discussing with cardiac surgery 3. Continue amiodarone with weekly stepdown dose. No need for anticoagulation 4. Encourage incentive spirometry use 10 times every hour while awake. Bronchodilators per pulmonology 5. Increase activity, ambulate as tolerated. PT/OT/cardiac rehab consulted 6. Will monitor daily labs and x-rays. Electrolyte replacement per protocol. No diuresis 7. GI/DVT prophylaxis 8. Pain control with current medication regimen 9. Insulin management per primary care service. Patient is not diabetic with hemoglobin A1c 5.3%, he does need tight blood sugar control to promote healing and prevent infection 10. Continue Xanax PRN for anxiety 11. Strict accurate intake and output. Daily weights 12. Discharge planning in progress. Anticipate discharge to home today with home care 13. More recommendations to follow Time with Patient: Greater than 30
[2021-04-25 09:07] LABS: African American GFR (CKD) >90 (>60 ml/min/1.73 sqM); Anion Gap 11 mmol/L; Blood Urea Nitrogen 20 mg/dL (9-20); Calcium 9.3 mg/dL (8.4-10.2); Carbon Dioxide 19 mmol/L (22-30); Chloride 109 mmol/L (98-107); Glucose 103 mg/dL (74-99); Non-African American GFR(CKD) 86 (>60 ml/min/1.73 sqM); Sodium 139 mmol/L (137-145)
[2021-04-25 09:10] LABS: Potassium 4.7 mmol/L (3.5-5.1)
--- NOTE | 2021-04-25 11:28 | P.PN ---
Subjective Progress Note Date: 04/25/21 Principal diagnosis: Status post coronary artery bypass grafting This is a 61-year-old gentleman with a past medical history significant for hypertension and dyslipidemia who was admitted to the hospital with acute coronary syndrome and underwent a coronary angiogram and subsequently coronary arteriogram is grafting. The CABG was complicated by A. fib. The patient was seen this morning. He is feeling overall better and he started another of fact asymptomatic from a cardiovascular standpoint. He is hemodynamically stable. The plan is to discharge home later on today. He underwent a blood work in the morning including renal function and that came in to be unremarkable. Objective - Vital Signs Vital signs: Vital Signs Temp 98.4 F 04/25/21 00:00 Pulse 89 04/25/21 08:38 Resp 16 04/25/21 04:00 BP 124/86 04/25/21 04:00 Pulse Ox 94 L 04/25/21 04:00 Intake & Output 04/24/21 04/25/21 04/25/21 18:59 06:59 18:59 Intake Total 690 240 120 Output Total 550 450 Balance 140 -210 120 Weight 91.1 kg Intake: Oral 690 240 120 Output: Urine 550 450 Stool 0 Other: Voiding Method Urinal # Voids 1 # Bowel Movements 1 1 ABP, PAP, CO, CI - Last Documented Arterial Blood Pressure 112/52 Pulmonary Artery Pressure 25/7 Cardiac Output 4.6 Cardiac Index 2.1 - Constitutional General appearance: Present: no acute distress - Respiratory Respiratory: bilateral: diminished - Cardiovascular Heart sounds: normal: S1, S2 - Labs CBC & Chem 7: 04/24/21 05:51 04/25/21 07:51 Labs: Abnormal Lab Results - Last 24 Hours (Table) 04/24/21 04/24/21 04/25/21 Range/Units 16:43 20:22 05:30 Chloride (98-107) mmol/L Carbon Dioxide (22-30) mmol/L Glucose (74-99) mg/dL POC Glucose (mg/dL) 106 H 117 H 105 H (75-99) mg/dL 04/25/21 Range/Units 07:51 Chloride 109 H (98-107) mmol/L Carbon Dioxide 19 L (22-30) mmol/L Glucose 103 H (74-99) mg/dL POC Glucose (mg/dL) (75-99) mg/dL Assessment and Plan Assessment: Assessment #1 acute coronary syndrome #2 status post CABG #3 post operation atrial fibrillation Plan #1 continue the current medical regimen #2 the patient is hemodynamically stable and asymptomatic #3 he can be discharged home
[2021-04-25 11:46] LABS: HCT 34.8 % (39.0-53.0); HGB 11.4 gm/dL (13.0-17.5); MCH 30.6 pg (25.0-35.0); MCHC 32.8 g/dL (31.0-37.0); MCV 93.5 fL (80.0-100.0); Mean Platelet Volume 7.2; Platelet Count 242 k/uL (150-450); RBC 3.72 m/uL (4.30-5.90); RDW 13.2 % (11.5-15.5); WBC 7.2 k/uL (3.8-10.6)
[2021-04-25 12:00] LABS: Glucose,Whole Blood 95 mg/dL (75-99)
[2021-04-25] MEDS ORDERED: amLODIPine 5 MG TAB PO SCH (12:00)
--- NOTE | 2021-04-25 12:29 | P.DS ---
Providers Date of admission: 04/18/21 13:27 Expected date of discharge: 04/25/21 Attending physician: Tammi Obregon Consults: 04/18/21 14:08 Consult Physician Urgent Consulting Provider: [facility] Consult Reason/Comments: nstemi Do you want consulting provider notified?: Already Contacted 04/18/21 20:54 Consult Physician Routine Consulting Provider: Tammi Obregon Consult Reason/Comments: possible open heart Do you want consulting provider notified?: Already Contacted 04/19/21 13:45 Consult Physician Routine Consulting Provider: Sae Franklin Consult Reason/Comments: pulmonary management Do you want consulting provider notified?: Yes Consult to Anesthesia Routine Consulting Provider: Anesthesia,Services Consult Reason/Comments: Cardiac Surgery Pre-Op 04/20/21 16:24 Consult Physician Routine Consulting Provider: Martínez Chapa Consult Reason/Comments: med mgmt Do you want consulting provider notified?: Already Contacted Primary care physician: Makr Lobato [facility] Course: FINAL DIAGNOSIS: 1. Triple-vessel coronary artery disease, non-STEMI this admission 2. History of hyperlipidemia, cholesterol 176, LDL 122 3. Remote history of paroxysmal atrial fibrillation 10-15 years ago 4. Never smoker, preoperative FEV1 79% of predicted 5. Osteoarthritis 6. Strong family history of premature coronary artery disease 7. Postoperative acute blood loss anemia and thrombocytopenia, expected 8. Paroxysmal atrial fibrillation, known common occurrence after heart surgery PRINCIPAL PROCEDURE: 1. Quintuple multiple arterial coronary artery bypass grafting using the left internal mammary artery sequentially to the diagonal artery, then to the left anterior descending artery, left radial artery from the aorta sequentially to the first obtuse marginal artery, then to the second obtuse marginal artery, reverse saphenous vein graft from the aorta to the right coronary artery 2. Exclusion of the left atrial appendage using a 35 mm AtriClip 3. Endoscopic harvesting of the left radial artery 4. Endoscopic harvesting of the right greater saphenous vein from the groin to above the ankle level 5. Intraoperative transesophageal echocardiogram and epi-aortic scanning 6. Intraoperative graft flow measurements using the [employer] system HISTORY OF PRESENT ILLNESS: This is a 60-year-old gentleman who follows on an ou tpatient basis Dr. Lobato for primary care. He presented to [facility] emergency room with complaints of burning type chest pain while golfing. Upon further questioning the patient admitted to short episodes of this type of pain over the previous week. He denied any other symptomatology. 12-lead EKG was completed in the emergency room demonstrating no acute ischemic changes. Troponins did elevate as high as 1.58 and he was ruled in for non-STEMI. He was admitted for further evaluation and treatment with consultation placed to cardiology. Transthoracic echocardiogram was completed demonstrating normal left ventricular systolic function with EF 55-60%, mild mitral valve regurgitation, mild tricuspid valve regurgitation, and trace to mild pulmonic valve regurgitation. Heart catheterization was performed which demonstrated 70% stenosis to the proximal left anterior descending coronary artery, 90% stenosis to the mid left anterior descending coronary artery, 30-40% stenosis to the proximal circumflex coronary artery, 50-60% stenosis to the intermediate coronary artery, and 95% stenosis in the midportion of the right coronary artery. Due to these findings consultation was placed to Dr. Obregon from cardiothoracic surgery. He was recommended to undergo urgent coronary artery bypass surgery. The usual perioperative course was discussed in detail with the patient and his family, all risks and benefits were explained, all questions were answered, and consent was obtained to proceed with surgery. The patient was kept inpatient due to the nature of his disease process. HOSPITAL COURSE: The patient was brought to the preoperative area 04/20/2021, prepared in the usual fashion, and subsequently taken to the operating room where Dr. Obregon performed 5 vessel CABG. Upon completion of surgery the patient was transferred to the cardiovascular intensive care unit where he was recovered and monitored hemodynamically. He was extubated, all lines, tubes, and drips were discontinued when appropriate, and he was transferred to [facility] cardiac stepdown unit for further monitoring and rehabilitation. He did experience a brief episode of paroxysmal atrial fibrillation which is a known common occurrence after cardiac surgery with quick conversion back to sinus rhythm after initiation of amiodarone. His oxygen was titrated down, he continued to work with physical and occupational therapy, he was tolerating oral diet, his pain was controlled, and he was ready to be discharged to home with [facility] on postoperative day #5. He received written and verbal instruction regarding his medications, activity restrictions, signs and symptoms requiring physician notification, and follow-up appointments. Patient Condition at Discharge: Stable Plan - Discharge Summary Discharge Rx Participant: Yes New Discharge Prescriptions: New Aspirin 325 mg PO DAILY #30 tab Amiodarone [Cordarone] 400 mg PO BID #36 tab Atorvastatin [Lipitor] 80 mg PO DAILY #30 tab Metoprolol Tartrate [Lopressor] 25 mg PO BID #60 tab Clopidogrel [Plavix] 75 mg PO DAILY #30 tab ALPRAZolam [Xanax] 0.25 mg PO BID PRN #14 tab PRN Reason: Anxiety amLODIPine [Norvasc] 5 mg PO DAILY@1200 #30 tab Pantoprazole [Protonix] 40 mg PO DAILY #30 tab Acetaminophen Tab [Tylenol] 650 mg PO Q4HR PRN tab PRN Reason: Fever And/ Or Pain Continue Naproxen Sodium [Aleve] 220 mg PO BID PRN PRN Reason: Pain Discharge Medication List Naproxen Sodium [Aleve] 220 mg PO BID PRN 04/18/21 [History] ALPRAZolam [Xanax] 0.25 mg PO BID PRN #14 tab 04/25/21 [Rx] Acetaminophen Tab [Tylenol] 650 mg PO Q4HR PRN tab 04/25/21 [Rx] Amiodarone [Cordarone] 400 mg PO BID #36 tab 04/25/21 [Rx] Aspirin 325 mg PO DAILY #30 tab 04/25/21 [Rx] Atorvastatin [Lipitor] 80 mg PO DAILY #30 tab 04/25/21 [Rx] Clopidogrel [Plavix] 75 mg PO DAILY #30 tab 04/25/21 [Rx] Metoprolol Tartrate [Lopressor] 25 mg PO BID #60 tab 04/25/21 [Rx] Pantoprazole [Protonix] 40 mg PO DAILY #30 tab 04/25/21 [Rx] amLODIPine [Norvasc] 5 mg PO DAILY@1200 #30 tab 04/25/21 [Rx] Follow up Appointment(s)/Referral(s): Sae Franklin MD [STAFF PHYSICIAN] - 05/25/21 1:15 pm Emily Humphries NPC [Nurse Practitioner] - 05/02/21 12:30 pm (Will be seen at the surgeon's office behind the [facility], [facility], [address]) Rehab Didier DUMONT,Cardiac [NON-STAFF] - 4 Weeks (You will be called in approxima tely 4-6 weeks for evaluation for cardiac rehab) Tammi Obregon MD [STAFF PHYSICIAN] - 05/20/21 10:00 am Mark Lobato MD [Primary Care Provider] - 05/02/21 1:00 pm [facility], [NON-STAFF] - (They will be contacting you the day after discharge and schedule the first visit.) Chi Hernandez MD [STAFF PHYSICIAN] - 2 Weeks (office will call with appointment date and time) Ambulatory/Diagnostic Orders: Complete Blood Count w/diff [LAB.AMB] Time Frame: 3 Days, Location: None Selected Comprehensive Metabolic Panel [LAB.AMB] Time Frame: 3 Days, Location: None Selected Patient Instructions/Handouts: Mediterranean Diet (DC) Activity/Diet/Wound Care/Special Instructions: DISCHARGE INSTRUCTIONS: 1. No driving for 4 weeks, or until physician gives their ok. 2. The patient should sleep in their own bed, no medical bed needed. 3. Stairs are not an issue. If the bedroom is upstairs, it is advised that the patient go up at night and down in the morning for the first week. Go slowly, using handrail and take 1 step at a time. 4. KRISTY hose are to be worn for 30 days or until physician discontinues. 5. Heart hugger is to be worn 100% of the time until physician discontinues.(except when showering) 6. No lifting, pushing, or pulling more than 10 pounds for 12 weeks. The physician will advise of any restriction changes. 7. The patient is expected to continue the prescribed walking program. 8. Continue pain control per as needed orders. 9. Continue with incentive spirometry and splinting/heart hugger until otherwise directed by the physician. 10. Must shower daily using liquid antibacterial soap and a separate white washcloth for each individual incision. 11. Routine sternal incision care. No powders, lotions, ointments on incisions. No dressings are necessary on incisions unless they are draining. Dermabond tape is to remain on sternal incision until surgeon follow-up. 12. Please call surgeon/DRUG ABUSE TREATMENT SPECIALIST for temp greater than 101 F or purulent drainage from incisions. 13. All prescriptions given by surgeon for 30 days. Refills need to be filled through celebrity manager/primary care physician. 14. A Red armband has been placed on the patient. It should be worn for 30 days post surgery and will be removed by the cardiac surgeons. If an ER visit is necessary, please make sure the number on the Red armband is called. 15. You have been referred to and are expected to begin Cardiac Rehab in approximately 4-6 weeks. HOME HEALTH SERVICES TO PROVIDE: RN SKILLED HOME CARE SERVICES FOR POST-OP SURGICAL PATIENTS WITH THE FOLLOWING: Coronary Artery Bypass Surgery (CABG), Mitral Valve Replacement/Repair ( MVR), Aortic Valve Replacement/Repair (AVR) RN TO CONTINUE EDUCATION FROM ``ROAD TO A HEALTH HEART PATIENT EDUCATION MANUAL (GIVEN TO PATIENT IN THE HOSPITAL) MEDICATION RECONCILIATION WITH EDUCATION NEEDED ON FIRST HOME VISIT EMPHASIZE IMPORTANCE OF WEARING BREAST SUPPORT/HEART HUGGER ENCOURAGE USE OF INCENTIVE SPIROMETER 10 X EVERY HOUR WHILE AWAKE ENCOURAGE UTILIZATION OF LOWER EXTREMITY COMPRESSION STOCKINGS/KRISTY HOSE and ELEVATE LEGS ABOVE LEVEL OF HEART WHILE AT REST. ENCOURAGE AMBULATION 3-5x/day INCREASING TOLERATES, WHILE AVOIDING EXTREMES IN TEMPERATURE FREQUENCY: RN TO OPEN THE PATIENT WITHIN 24 HOURS OF DISCHARGE FROM THE HOSPITAL WITH TELEHEALTH [place]ALL[place] [facility] [place] TO VISIT 2-3 X A WEEK FOR 4 WEEKS ESTABLISHED BY PATIENT NEEDS. LABORATORY: CBC, CMP TO BE DRAWN ON THE THIRD DAY HOME, (RAN STAT) FAX RESULTS TO [phone]. TELEHEALTH PARAMETERS: WEIGHT: NOTIFY MD OF WEIGHT GAIN OF 2 LBS IN 24 HOURS OR 5 LBS IN ONE WEEK HR: NOTIFY MD OF HR <55 BPM OR HR>100 BPM BP: NOTIFY MD IF BP <90/55 OR BP>140/100 O2 SAT: NOTIFY MD IF PO2<93% ON ROOM AIR SEND TELEHEALTH REPORT TO RADIATOR MECHANIC AND CARDIOVASCULAR SURGEON THE FIRST WEEK OF CARE AND THEN BI-WEEKLY. PLEASE ADDITIONALLY COMMUNICATE ANY ABNORMALS AND NEW FINDINGS TO THE SURGEONS OFFICE. Discharge Disposition: HOME WITH HOME HEALTH SERVICES
[2021-04-25 15:23] VITALS: BP 109/69; PULSE 86; RESP 18; TEMP 98
--- NOTE | 2021-04-27 09:40 | P.VSCSTY ---
Greater Saphenous Vein Mapping This is bilateral lower extremity greater saphenous vein mapping. Date of service: 04/19/2021 Vein quality and ultrasound appearance: We see no intraluminal thrombus or obvious wall changes. Vein size groin right : 7.6 x 8.7 groin left: 8.3 x 10 High thigh right: 3.8 x 3.5 high thigh left: 3.4 x 4.6 Mid thigh right: 4.3 x 4.5 mid thigh left: 4.1 x 4.4 Above-knee right: 5.2 x 5.3 above- knee left: 4.0 x 4.6 Below knee right: 4.6 x 4.1 below-knee left: 3.1 x 3.8 Mid calf right: 3.3 x 3.1 mid calf left: 2.6 x 3.4 Ankle right: 4.4 x 5.6 ankle left: 3.1 x 4.1 Impression: Usable bilateral greater saphenous vein.
--- NOTE | 2021-04-27 09:43 | P.ARTDOP ---
Arterial Doppler Bilateral radial artery study: Date of study: 04/19/2021. Reason for study: Preop CABG. Findings: On Doppler assessment we find no significant right to left or segmental gradients. With radial artery compression, on the right there is a significant 40 mmHg pressure change. On the left there is no significant pressure change. On imaging the right radial is 4.1 x 4.2 mm distally, 3.5 x 4.1 mm mid, and 4.3 x 5.5 mm proximally. The left radial is 33.0 x 2.8 mm distally, 2.7 x 2.4 mm mid, distally there is IV. Impression: Left radial is not usable based on pressure changes with radial compression. Left radial appears to be well collateralized with a good size for use as conduit.
--- NOTE | 2021-04-27 09:43 | P.ARTDOP ---
Arterial Doppler LOWER EXTREMITY ARTERIAL DOPPLER: DATE OF SERVICE: 04/19/2021 Reason for study: Preop CABG. Doppler waveforms: Multiphasic bilaterally throughout. Pulse volume recording: []. Pressure gradients: None. Ankle-brachial indices: Greater than 1 bilaterally. Toe brachial indices: 0.87 on the right, greater than 1 on the left Impression: Normal study.
== END 2021-04-25 15:22 | disposition home health service (06) | DRG 234 ==
LOC: EC 11:19 → 3SCARD 13:27 → 2SICU 19:54 → 3SCARD 04-23 14:25
PROVIDERS: ADMIT Surgery; ATTEND Surgery
PROC: B2151ZZ Fluoroscopy of Left Heart using Low Osmolar Contrast (ICD-10-PCS; 2021-04-18)
PROC: B2111ZZ Fluoroscopy of Multiple Coronary Arteries using Low Osmolar Contrast (ICD-10-PCS; 2021-04-18)
PROC: 4A023N7 Measurement of Cardiac Sampling and Pressure, Left Heart, Percutaneous Approach (ICD-10-PCS; 2021-04-18)
PROC: B246ZZ4 Ultrasonography of Right and Left Heart, Transesophageal (ICD-10-PCS; principal; 2021-04-20 09:00)
PROC: 06BP4ZZ Excision of Right Saphenous Vein, Percutaneous Endoscopic Approach (ICD-10-PCS; principal; 2021-04-20 09:00)
PROC: 02110Z9 Bypass Coronary Artery, Two Arteries from Left Internal Mammary, Open Approach (ICD-10-PCS; principal; 2021-04-20 09:00)
PROC: 02L70CK Occlusion of Left Atrial Appendage with Extraluminal Device, Open Approach (ICD-10-PCS; principal; 2021-04-20 09:00)
PROC: 4A1305C Monitoring of Arterial Flow, Coronary, Open Approach (ICD-10-PCS; principal; 2021-04-20 09:00)
PROC: 02100AW Bypass Coronary Artery, One Artery from Aorta with Autologous Arterial Tissue, Open Approach (ICD-10-PCS; principal; 2021-04-20 09:00)
PROC: 5A1221Z Performance of Cardiac Output, Continuous (ICD-10-PCS; principal; 2021-04-20 09:00)
PROC: 021009W Bypass Coronary Artery, One Artery from Aorta with Autologous Venous Tissue, Open Approach (ICD-10-PCS; principal; 2021-04-20 09:00)
PROC: 03BC4ZZ Excision of Left Radial Artery, Percutaneous Endoscopic Approach (ICD-10-PCS; principal; 2021-04-20 09:00)
DX: I21.4 Non-ST elevation (NSTEMI) myocardial infarction (principal); I31.9 Disease of pericardium, unspecified; J90 Pleural effusion, not elsewhere classified; D62 Acute posthemorrhagic anemia; J98.11 Atelectasis; D69.6 Thrombocytopenia, unspecified; E11.9 Type 2 diabetes mellitus without complications; I48.0 Paroxysmal atrial fibrillation; Z20.822 Contact with and (suspected) exposure to COVID-19; I25.10 Atherosclerotic heart disease of native coronary artery without angina pectoris; I10 Essential (primary) hypertension; I49.3 Ventricular premature depolarization; I08.1 Rheumatic disorders of both mitral and tricuspid valves; E78.5 Hyperlipidemia, unspecified; E78.00 Pure hypercholesterolemia, unspecified; F41.9 Anxiety disorder, unspecified; K59.00 Constipation, unspecified; R19.7 Diarrhea, unspecified; G89.29 Other chronic pain; M54.5 Low back pain; R13.10 Dysphagia, unspecified; M19.90 Unspecified osteoarthritis, unspecified site; Z96.643 Presence of artificial hip joint, bilateral; Z87.39 Personal history of other diseases of the musculoskeletal system and connective tissue; Z86.19 Personal history of other infectious and parasitic diseases; Z98.52 Vasectomy status; Z98.890 Other specified postprocedural states; Z71.3 Dietary counseling and surveillance; Z82.49 Family history of ischemic heart disease and other diseases of the circulatory system; Z80.0 Family history of malignant neoplasm of digestive organs; Z82.3 Family history of stroke; Z83.1 Family history of other infectious and parasitic diseases
CPT/HCPCS: 36415; 71045; 71046; 80048; 80053; 80061; 80074; 81003; 82330; 82805; 83036; 83735; 83880; 84443; 84484; 85025; 85027; 85520; 85610; 85730; 86850; 86891; 86900; 86901; 86920; 87070; 87635; 93005; 93306; 93458; 93880; 93922; 93923; 93930; 93970; 94002; 94150; 94640; 94760; 96374; 99291

== ENCOUNTER 2021-05-07 11:16 | Emergency (ER) | payer MEDICARE, OTHER ==
[2021-05-07 11:32] VITALS: RESP 16; TEMP 98.2
[2021-05-07] MEDS ORDERED: SODIUM CHLORIDE 0.9% 500 ML 500 ML IV STA (11:52)
--- NOTE | 2021-05-07 12:16 | ED ---
General Adult HPI - General Chief complaint: Dizziness Stated complaint: open heart 17days ago, dizziness Time Seen by Provider: 05/07/21 11:34 Source: patient Mode of arrival: wheelchair Limitations: no limitations - History of Present Illness Initial comments: 60-year-old male patient presents to the emergency department today for evaluation of dizziness and low blood pressure with standing. Patient is 17 days status post [address] Obregon. States he was doing well and he woke up today he noticed dizziness with standing. Patient states that he has had some low blood pressures this morning. Denies any chest pain or shortness of breath. Denies extremity swelling. States he did have mild headache with the worst of the dizziness but that has resolved. Denies any blurred or double vision. Denies numbness, tingling, weakness to his extremities. Denies any recent medication changes, states he is still taking the same doses as time of discharge. He is eating and drinking without difficulty. Denies any bloody or black stool. Patient denies any recent rash, fever, chills, cough, abdominal pain, nausea, vomiting, diarrhea, constipation, back pain, hematuria, dysuria, urinary urgency, urinary frequency, or any other complaints. - Related Data Home Medications Medication Instructions Recorded Confirmed Naproxen Sodium [Aleve] 220 mg PO BID PRN 04/18/21 05/07/21 Amiodarone [Cordarone] See Taper PO DIRECTED 05/07/21 05/07/21 Metoprolol Tartrate [Lopressor] 12.5 mg PO BID 05/07/21 05/07/21 amLODIPine [Norvasc] 2.5 mg PO DAILY@1300 05/07/21 05/07/21 Previous Rx's Medication Instructions Recorded ALPRAZolam [Xanax] 0.25 mg PO BID PRN #14 tab 04/25/21 Acetaminophen Tab [Tylenol] 650 mg PO Q4HR PRN tab 04/25/21 Aspirin 325 mg PO DAILY #30 tab 04/25/21 Atorvastatin [Lipitor] 80 mg PO DAILY #30 tab 04/25/21 Clopidogrel [Plavix] 75 mg PO DAILY #30 tab 04/25/21 Pantoprazole [Protonix] 40 mg PO DAILY #30 tab 04/25/21 Allergies Allergy/AdvReac Type Severity Reaction Status Date / Time No Known Allergies Allergy Verified 05/07/21 14:11 Review of Systems ROS Statement: Those systems with pertinent positive or pertinent negative responses have been documented in the HPI. ROS Other: All systems not noted in ROS Statement are negative. Past Medical History Past Medical History: Atrial Fibrillation, Hyperlipidemia, Osteoarthritis (OA) Additional Past Medical History / Comment(s): Chronic lower back pain History of Any Multi-Drug Resistant Organisms: None Reported Past Surgical History: Joint Replacement Additional Past Surgical History / Comment(s): TOTAL RIGHT AND LEFT HIP , GREAT TOE- BILATERAL SURGERY, and vasectomy. Past Anesthesia/Blood Transfusion Reactions: No Reported Reaction Additional Past Anesthesia/Blood Transfusion Reaction / Comment(s): NO REACTION WITH BLOOD TRANSFUSION Past Psychological History: No Psychological Hx Reported Smoking Status: Never smoker Past Alcohol Use History: Occasional Past Drug Use History: None Reported - Past Family History Father Family Medical History: Cancer, Myocardial Infarction (NH) Additional Family Medical History / Comment(s): LIVER CANCER Mother Family Medical History: Congestive Heart Failure (CHF), CVA/TIA Additional Family Medical History / Comment(s): Rheumatic fever-VALVE REPLACEMENT General Exam Limitations: no limitations General appearance: alert, in no apparent distress, other (This is a well- developed, well-nourished male patient in no acute distress. Vital signs upon presentation are temperature 98.2F, pulse 72, respirations 16, blood pressure 100/65, pulse ox 96% on room air.) Eye exam: Present: normal appearance, PERRL, EOMI. Absent: scleral icterus, conjunctival injection, nystagmus, periorbital swelling ENT exam: Present: normal exam, normal oropharynx, mucous membranes moist Respiratory exam: Present: normal lung sounds bilaterally. Absent: respiratory distress, wheezes, rales, rhonchi, stridor Cardiovascular Exam: Present: regular rate, normal rhythm, normal heart sounds. Absent: systolic murmur, diastolic murmur, rubs, gallop, clicks GI/Abdominal exam: Present: soft, normal bowel sounds. Absent: distended, tenderness, guarding, rebound, rigid Neurological exam: Present: alert, oriented X3, CN II-XII intact Psychiatric exam: Present: normal affect, normal mood Skin exam: Present: warm, dry, intact, normal color. Absent: rash Course Vital Signs 05/07/21 05/07/21 11:29 12:24 Temperature 98.2 F Pulse Rate 72 Pulse Rate [ 66 Sitting] Pulse Rate [ 77 Standing] Pulse Rate [ 64 Supine] Respiratory 16 Rate Blood Pressure 100/65 Blood Pressure 113/80 [Sitting] Blood Pressure 102/71 [Standing] Blood Pressure 109/68 [Supine] O2 Sat by Pulse 96 Oximetry - Reevaluation(s) Reevaluation #1: 05/07/21 12:50 Dr. Obregon at bedside, performed bedside ultrasound to rule out effusion. No evidence of effusion. He gave instruction to decrease lopressor dose to 12.5mg BID and Amlodipine dose 2.5mg daily. Plan for discharge pending all other labs and xray results. Medical Decision Making - Medical Decision Making 60-year-old male patient presents to the emergency department today for evaluation of dizziness and low blood pressure. Physical examination was unremarkable. He is neurologically intact no focal deficits. No swelling to the extremities. Abdomen soft and nontender. Lungs are clear to auscultation. Labs reviewed and did reveal an elevated platelet count around 600. He also had evidence for elevated troponin 0.1. Patient is status post CABG about [address] Obregon and his CATTLE RANCHER Fadi were in to evaluate the patient, performed beside ultrasound which was negative for signs of pleural effusion. They did adjust his blood pressure medications. I did speak to Fadi Kumar CATTLE RANCHER again and informed him of lab results specifically elevated troponin, he stated this is expected after surgery. I did print out medication list and went over medication changes in detail. He did tolerate ambulation in the department well. To be discharged follow-up with his calculus teacher this week and his primary care physician. Instructed to follow-up with the surgeon as planned. Return parameters were discussed in detail. He verbalizes understanding and agrees with this plan. Case discussed with my attending Dr. Muller. - Lab Data Result diagrams: 05/07/21 11:50 05/07/21 11:50 Lab Results 05/07/21 05/07/21 05/07/21 Range/Units 11:50 11:50 11:50 WBC 7.5 (3.8-10.6) k/uL RBC 4.40 (4.30-5.90) m/uL Hgb 13.1 (13.0-17.5) gm/dL Hct 40.1 (39.0-53.0) % MCV 91.0 (80.0-100.0) fL MCH 29.7 (25.0-35.0) pg MCHC 32.6 (31.0-37.0) g/dL RDW 13.3 (11.5-15.5) % Plt Count 602 H D (150-450) k/uL MPV 6.4 Neutrophils % 69 % Lymphocytes % 12 % Monocytes % 7 % Eosinophils % 9 % Basophils % 1 % Neutrophils # 5.2 (1.3-7.7) k/uL Lymphocytes # 0.9 L (1.0-4.8) k/uL Monocytes # 0.5 (0-1.0) k/uL Eosinophils # 0.7 (0-0.7) k/uL Basophils # 0.1 (0-0.2) k/uL Poikilocytosis Slight Sodium 136 L (137-145) mmol/L Potassium 4.9 (3.5-5.1) mmol/L Chloride 102 (98-107) mmol/L Carbon Dioxide 25 (22-30) mmol/L Anion Gap 9 mmol/L BUN 20 (9-20) mg/dL Creatinine 1.24 (0.66-1.25) mg/dL Est GFR (CKD-EPI)AfAm 72 (>60 ml/min/1.73 sqM) Est GFR (CKD-EPI)NonAf 62 (>60 ml/min/1.73 sqM) Glucose 97 (74-99) mg/dL Plasma Lactic Acid Jonah 1.2 (0.7-2.0) mmol/L Calcium 9.7 (8.4-10.2) mg/dL Magnesium 2.1 (1.6-2.3) mg/dL Total Bilirubin 0.6 (0.2-1.3) mg/dL AST 31 (17-59) U/L ALT 26 (4-49) U/L Alkaline Phosphatase 114 (38-126) U/L Troponin I (0.000-0.034) ng/mL Total Protein 7.2 (6.3-8.2) g/dL Albumin 4.1 (3.5-5.0) g/dL 05/07/21 Range/Units 11:50 WBC (3.8-10.6) k/uL RBC (4.30-5.90) m/uL Hgb (13.0-17.5) gm/dL Hct (39.0-53.0) % MCV (80.0-100.0) fL MCH (25.0-35.0) pg MCHC (31.0-37.0) g/dL RDW (11.5-15.5) % Plt Count (150-450) k/uL MPV Neutrophils % % Lymphocytes % % Monocytes % % Eosinophils % % Basophils % % Neutrophils # (1.3-7.7) k/uL Lymphocytes # (1.0-4.8) k/uL Monocytes # (0-1.0) k/uL Eosinophils # (0-0.7) k/uL Basophils # (0-0.2) k/uL Poikilocytosis Sodium (137-145) mmol/L Potassium (3.5-5.1) mmol/L Chloride (98-107) mmol/L Carbon Dioxide (22-30) mmol/L Anion Gap mmol/L BUN (9-20) mg/dL Creatinine (0.66-1.25) mg/dL Est GFR (CKD-EPI)AfAm (>60 ml/min/1.73 sqM) Est GFR (CKD-EPI)NonAf (>60 ml/min/1.73 sqM) Glucose (74-99) mg/dL Plasma Lactic Acid Jonah (0.7-2.0) mmol/L Calcium (8.4-10.2) mg/dL Magnesium (1.6-2.3) mg/dL Total Bilirubin (0.2-1.3) mg/dL AST (17-59) U/L ALT (4-49) U/L Alkaline Phosphatase (38-126) U/L Troponin I 0.118 H* (0.000-0.034) ng/mL Total Protein (6.3-8.2) g/dL Albumin (3.5-5.0) g/dL - EKG Data -: EKG Interpreted by Me EKG Comments: EKG obtained at 1149 shows normal sinus rhythm with a ventricular rate of 68, NE interval 138, QRS duration 82, QT 392, QTc 416. - Radiology Data Radiology results: report reviewed, image reviewed Two-view x-ray of the chest is obtained. Report is reviewed in its entirety. Impression by Dr. Turner shows cardiomegaly with tiny residual left pleural effusion. No new focal infiltrate. Disposition Clinical Impression: Orthostatic hypotension, Dizziness Disposition: HOME SELF-CARE Condition: Good Instructions (If sedation given, give patient instructions): Hypotension (ED), Dizziness (ED) Additional Instructions: Take medications as directed. Follow-up with your calculus teacher and primary care physician as directed. Return to the emergency department for any new, worsening, or concerning symptoms. Is patient prescribed a controlled substance at d/c from ED?: No Referrals: Mark Lobato MD [Primary Care Provider] - 1-2 days Time of Disposition: 13:55
[2021-05-07 12:20] LABS: Albumin 4.1 g/dL (3.5-5.0); Calcium 9.7 mg/dL (8.4-10.2); Magnesium 2.1 mg/dL (1.6-2.3); Potassium 4.9 mmol/L (3.5-5.1); Total Bilirubin 0.6 mg/dL (0.2-1.3); Total Protein 7.2 g/dL (6.3-8.2)
[2021-05-07 12:25] LABS: Basophils # (A) 0.1 k/uL (0-0.2); Basophils % (A) 1 %; Eosinophils # (A) 0.7 k/uL (0-0.7); Eosinophils % (A) 9 %; HCT 40.1 % (39.0-53.0); HGB 13.1 gm/dL (13.0-17.5); Lymphocytes # (A) 0.9 k/uL (1.0-4.8); Lymphocytes % (A) 12 %; MCH 29.7 pg (25.0-35.0); MCHC 32.6 g/dL (31.0-37.0); Mean Platelet Volume 6.4; Monocytes # (A) 0.5 k/uL (0-1.0); Monocytes % (A) 7 %; Neutrophils # (A) 5.2 k/uL (1.3-7.7); Neutrophils % (A) 69 %; Poikilocytosis Slight; RDW 13.3 % (11.5-15.5); WBC 7.5 k/uL (3.8-10.6)
[2021-05-07 12:29] LABS: Platelet Count 602 k/uL (150-450)
--- NOTE | 2021-05-07 13:20 | XR ---
EXAMINATION TYPE: XR chest 2V DATE OF EXAM: 05/07/2021 COMPARISON: Chest x-ray April 25, 2021 HISTORY: Dizziness and hypotension. Recent open heart surgery. TECHNIQUE: Frontal and lateral views of the chest are obtained. FINDINGS: Overlying sternal wires and mediastinal clips along with left atrial appendage clip are all redemonstrated. Tiny left pleural effusion remains present and improved from prior. No right-sided p leural effusion. No new focal airspace opacity or pneumothorax bilaterally. Stable cardiomegaly. Th e osseous structures are intact. IMPRESSION: Cardiomegaly with tiny residual left pleural effusion. No new focal infiltrate
[2021-05-07 15:21] VITALS: BP 132/84; PULSE 78
== END 2021-05-07 15:21 | disposition home or self-care (01) ==
LOC: EC 11:16
DX: I95.1 Orthostatic hypotension (principal); E78.5 Hyperlipidemia, unspecified; I48.91 Unspecified atrial fibrillation; Z79.02 Long term (current) use of antithrombotics/antiplatelets; Z79.82 Long term (current) use of aspirin; Z79.899 Other long term (current) drug therapy; Z95.1 Presence of aortocoronary bypass graft
CPT/HCPCS: 71046; 80053; 83605; 83735; 84484; 85025; 87040; 93005; 96360; 99284

== ENCOUNTER → 2022-10-25 | Outpatient (CLI) | payer MEDICARE, OTHER ==
--- NOTE | 2022-10-25 15:34 | US ---
EXAMINATION TYPE: US kidneys/renal and bladder DATE OF EXAM: 10/25/2022 COMPARISON: NONE CLINICAL HISTORY: R10.9 ABD PAIN. sharp pain on and off for 25 years EXAM MEASUREMENTS: Right Kidney: 10.5 x 4.6 x 5.2 cm Left Kidney: 10.2 x 4.3 x 5.1 cm Right Kidney: No hydronephrosis or masses seen Left Kidney: No hydronephrosis or masses seen Bladder: wnl There is no evidence for hydronephrosis at this point in time. No nephrolithiasis is seen. No renetta s are identified. The urinary bladder is adequately distended. Bilateral ureteral jets are not seen . IMPRESSION: No hydronephrosis is seen bilaterally. No acute findings are evident
== END | disposition home or self-care (01) ==
LOC: RADUSWWP 13:34
PROVIDERS: ATTEND Family Medicine
DX: R10.9 Unspecified abdominal pain (principal)
CPT/HCPCS: 76770

== ENCOUNTER → 2022-11-16 | Outpatient (CLI) | payer MEDICARE, OTHER ==
--- NOTE | 2022-11-16 08:45 | US ---
EXAMINATION TYPE: US abdomen complete DATE OF EXAM: 11/16/2022 COMPARISON: Renal US 10/25/22 CLINICAL HISTORY: B17.9. Acute hepatitis per order. TECHNIQUE: Multiple sonographic images of the abdomen are obtained. FINDINGS: EXAM MEASUREMENTS: Liver Length: 13.5 cm Gallbladder Wall: 0.22 cm CBD: Obscured Spleen: 11.1 cm Right Kidney: 10.6 x 5.6 x 4.9 cm Left Kidney: 10.8 x 5.0 x 6.3 cm VEHICLE TRIMMER NOTES: Limited due to gas. Pancreas: Obscured Liver: No abnormalities seen. Gallbladder: Hyperechoic area was seen within: 1.4 cm. Evidence for sonographic Keita's sign: No CBD: Obscured Spleen: Not well seen. Right Kidney: No hydronephrosis or masses seen Left Kidney: Lower pole gassed out. Hyperechoic focus seen: 0.6 x 0.7 x 0.4 cm. Hypoechoic area seen upper pole: 1.1 x 1.2 x 0.6 cm. This is too small to classify. Follow-up monitor ing recommended. Upper IVC: Appears wnl Abd Aorta: Proximal segment appears ectatic, iliacs were obscured. IMPRESSION: 1. Echogenic foci within the left kidney can be compatible with a nonobstructing renal stone. 2. Echogenic material within the gallbladder. Correlate for small gallstones. 3. Small cortical renal cyst.
== END | disposition home or self-care (01) ==
LOC: RADUSWWP 06:47
PROVIDERS: ATTEND Family Medicine
DX: N28.1 Cyst of kidney, acquired (principal); B17.9 Acute viral hepatitis, unspecified
CPT/HCPCS: 76700

== ENCOUNTER 2023-01-24 12:16 | Day surgery (SDC) | payer MEDICARE, OTHER ==
[~2023-01-24 12:16] MED LIST: LACTATED RINGERS 1,000 ML IV SCH
[2023-01-24] MEDS ORDERED: LIDOCAINE 1% (10MG/ML) FOR IV START INTRADERMA ONE (13:20)
[2023-01-24 13:21] VITALS: RESP 16; TEMP 97.3
[2023-01-24] MEDS ORDERED: LIDOCAINE 2% INJ 20 MG/ML (2 ML VIAL) ONE (14:10)
[2023-01-24] MEDS ORDERED: PROPOFOL 10 MG/ML 20 ML VIAL IV ONE (14:10)
--- NOTE | 2023-01-24 14:17 | P.PCN ---
Date of Procedure: 01/24/23 Procedure(s) Performed: BRIEF HISTORY: Patient is a 62-year-old, pleasant, white male scheduled for an upper endoscopy as a part of evaluation of atypical chest pain/heartburn and GERD.. This area. He was started on omeprazole 20 mg daily and symptoms are gradually improving.. PROCEDURE PERFORMED: Esophagogastroduodenoscopy with biopsy. PREOPERATIVE DIAGNOSIS: Atypical chest pain and GERD. IV sedation per anesthesia. PROCEDURE: After informed consent was obtained, the patient was brought into the endoscopy unit. IV sedation was administered by Anesthesia under continuous monitoring. Initially the Olympus GIF-140 video endoscope was inserted into the mouth. Esophagus intubated without any difficulty. It was gradually advanced into the stomach and duodenum and carefully examined. The bulb and the second part of the duodenum appeared normal. The scope at this time was withdrawn to the stomach, adequately insufflated with air, and upon careful examination, mucosa of the antrum, patchy areas of erythema and biopsies were done from this area. Mucosa of the body, cardia and the fundus appeared normal. The scope was then withdrawn into the esophagus. The GE junction was located at 39 cm from the incisors. Small hiatal hernia noted. The esophagus appeared normal. Biopsies were done from the distal esophagus. There were no erosions or ulcerations seen and the patient tolerated the procedure well. IMPRESSION: 1. Small hiatal hernia but no evidence of esophagitis or Devlin's esophagus. 2. Mild antral gastritis. RECOMMENDATIONS: The findings of this examination were discussed with the patient as well as his family. He was advised to continue with omeprazole 20 mg daily and follow antireflux measures..
[2023-01-24 14:40] VITALS: BP 114/68; PULSE 59
== END 2023-01-24 15:03 | disposition home or self-care (01) ==
LOC: ORWHC2ENDO 12:16
PROVIDERS: ATTEND Internal Medicine Gastroenterology
DX: K29.50 Unspecified chronic gastritis without bleeding (principal); K21.00 Gastro-esophageal reflux disease with esophagitis, without bleeding; K44.9 Diaphragmatic hernia without obstruction or gangrene; I25.10 Atherosclerotic heart disease of native coronary artery without angina pectoris; I48.91 Unspecified atrial fibrillation; I10 Essential (primary) hypertension; E78.5 Hyperlipidemia, unspecified; Z79.02 Long term (current) use of antithrombotics/antiplatelets; Z79.82 Long term (current) use of aspirin; Z79.899 Other long term (current) drug therapy; Z95.1 Presence of aortocoronary bypass graft
CPT/HCPCS: 88305; 43239; J2704; J2001

== ENCOUNTER 2024-10-18 10:57 | Emergency (ER) | payer MEDICARE, OTHER ==
[2024-10-18 11:07] VITALS: TEMP 97.3
[2024-10-18 11:26] LABS: Basophils % (A) 1 %; Eosinophils # (A) 0.1 k/uL (0-0.7); Eosinophils % (A) 3 %; HCT 49.6 % (39.0-53.0); HGB 16.8 gm/dL (13.0-17.5); Lymphocytes # (A) 0.9 k/uL (1.0-4.8); Lymphocytes % (A) 19 %; MCH 31.2 pg (25.0-35.0); MCHC 33.8 g/dL (31.0-37.0); MCV 92.4 fL (80.0-100.0); Mean Platelet Volume 6.8; Monocytes # (A) 0.3 k/uL (0-1.0); Monocytes % (A) 7 %; Neutrophils # (A) 3.2 k/uL (1.3-7.7); Neutrophils % (A) 68 %; Platelet Count 229 k/uL (150-450); RBC 5.37 m/uL (4.30-5.90); WBC 4.7 k/uL (3.8-10.6)
[2024-10-18 11:38] LABS: ALT 27 U/L (4-49); AST 36 U/L (17-59); African American GFR (CKD) 88 (>60 ml/min/1.73 sqM); Albumin 4.4 g/dL (3.5-5.0); Alkaline Phosphatase 73 U/L (38-126); Anion Gap 7 mmol/L; Blood Urea Nitrogen 18 mg/dL (9-20); Calcium 9.6 mg/dL (8.4-10.2); Carbon Dioxide 30 mmol/L (22-30); Chloride 100 mmol/L (98-107); Glucose 133 mg/dL (74-99); Magnesium 2.1 mg/dL (1.6-2.3); Non-African American GFR(CKD) 76 (>60 ml/min/1.73 sqM); Potassium 4.7 mmol/L (3.5-5.1); Sodium 137 mmol/L (137-145); Total Bilirubin 1.3 mg/dL (0.2-1.3); Total Protein 7.4 g/dL (6.3-8.2)
[2024-10-18 11:40] LABS: Partial Thromboplastin Time 23.7 sec (22.0-30.0); Prothrombin Time 10.9 sec (10.0-12.5)
--- NOTE | 2024-10-18 11:40 | XR ---
EXAMINATION TYPE: XR chest 2V DATE OF EXAM: 10/18/2024 11:36 AM COMPARISON: Chest radiographs from 05/27/2021 TECHNIQUE: XR chest 2V Frontal and lateral views of the chest. CLINICAL INDICATION:Male, 64 years old with history of dysrhythmia; FINDINGS: Lungs/Pleura: There is no evidence of pleural effusion, focal consolidation, or pneumothorax. Pulmonary vascularity: Unremarkable. Heart/mediastinum: Cardiomediastinal silhouette is stable. Post-CABG changes. Left atrial appendage occlusion devices present. Musculoskeletal: No acute osseous pathology. Midline sternotomy wires are noted and stable. IMPRESSION: Chronic changes without evidence for acute process. [facility], , 10/18/2024 11:38 AM
--- NOTE | 2024-10-18 12:00 | ED ---
Arrhythmia/Palpitations HPI - General Source: patient, RN notes reviewed Mode of arrival: ambulatory Limitations: no limitations <Carrie Moreno - Last Filed: 10/18/24 11:59> - General Source: patient, RN notes reviewed Limitations: no limitations <Chirag James - Last Filed: 10/18/24 14:30> - General Chief Complaint: Arrhythmia/Palpitations Stated Complaint: heart flutters Time Seen by Provider: 10/18/24 11:10 - History of Present Illness Initial Comments: Quick [id number] male with a history of coronary artery disease with subsequent CABG presenting chief complaint of heart palpitations/fluttering over the past day. States that he will experience a fluttering in his chest approximate every 5 to 10 minutes associated with difficulty breathing. States that this will occur at rest. (Carrie Moreno) Patient is a 64-year-old male present to the emergency department with concerns with palpitations. Onset of symptoms was yesterday. Symptoms worsened today. Patient feels like his heart is fluttering. Patient states this occurs around every 15 or 20 minutes and then resolved. Currently patient is symptom-free. No chest pain. No dyspnea. Patient does have history of some arrhythmia in the past however unclear what it was. (Chirag James) - Related Data Home Medications Medication Instructions Recorded Confirmed Amiodarone [Cordarone] See Taper PO DIRECTED 05/07/21 05/07/21 Metoprolol Tartrate [Lopressor] 12.5 mg PO BID 05/07/21 01/24/23 Omeprazole [PriLOSEC] 40 mg PO DAILY 01/24/23 01/24/23 Rosuvastatin [Crestor] 10 mg PO DAILY 01/24/23 01/24/23 lisinopriL [Zestril] 10 mg PO DAILY 01/24/23 01/24/23 Previous Rx's Medication Instructions Recorded Aspirin 325 mg PO DAILY #30 tab 04/25/21 Clopidogrel [Plavix] 75 mg PO DAILY #30 tab 04/25/21 Allergies Allergy/AdvReac Type Severity Reaction Status Date / Time No Known Allergies Allergy Verified 01/24/23 13:14 Review of Systems ROS Other: All systems not noted in ROS Statement are negative. <Carrie Moreno - Last Filed: 10/18/24 11:59> ROS Other: All systems not noted in ROS Statement are negative. Constitutional: Denies: fever Eyes: Denies: eye pain ENT: Denies: ear pain Respiratory: Denies: cough, dyspnea Cardiovascular: Reports: as per HPI, palpitations. Denies: chest pain Endocrine: Denies: fatigue Gastrointestinal: Denies: abdominal pain <Chirag James - Last Filed: 10/18/24 14:30> ROS Statement: Those systems with pertinent positive or pertinent negative responses have been documented in the HPI. Past Medical History Past Medical History: Atrial Fibrillation, Coronary Artery Disease (CAD), Hyperlipidemia, Hypertension, Myocardial Infarction (HI), Osteoarthritis (OA) Additional Past Medical History / Comment(s): Chronic lower back pain History of Any Multi-Drug Resistant Organisms: None Reported Past Surgical History: Coronary Bypass/CABG, Joint Replacement Additional Past Surgical History / Comment(s): TOTAL RIGHT AND LEFT HIP , GREAT TOE- BILATERAL SURGERY, and vasectomy. Past Anesthesia/Blood Transfusion Reactions: No Reported Reaction Additional Past Anesthesia/Blood Transfusion Reaction / Comment(s): NO REACTION WITH BLOOD TRANSFUSION Past Psychological History: No Psychological Hx Reported Smoking Status: Never smoker Past Alcohol Use History: Occasional Past Drug Use History: None Reported - Past Family History Father Family Medical History: Cancer, Myocardial Infarction (HI) Additional Family Medical History / Comment(s): LIVER CANCER Mother Family Medical History: Congestive Heart Failure (CHF), CVA/TIA Additional Family Medical History / Comment(s): Rheumatic fever-VALVE REPLACEMENT <Carrie Moreno - Last Filed: 10/18/24 11:59> General Exam Limitations: no limitations <Carrie Moreno - Last Filed: 10/18/24 11:59> Limitations: no limitations General appearance: alert, in no apparent distress Head exam: Present: normocephalic Eye exam: Present: normal appearance Neck exam: Present: normal inspection Respiratory exam: Present: normal lung sounds bilaterally Cardiovascular Exam: Present: regular rate, normal rhythm (Occasional extra beats), normal heart sounds Expanded Peripheral pulses: 2+: Radial (R), Radial (L) GI/Abdominal exam: Present: soft. Absent: tenderness Extremities exam: Present: normal inspection Neurological exam: Present: alert Psychiatric exam: Present: normal affect, normal mood Skin exam: Present: normal color <Chirag James - Last Filed: 10/18/24 14:30> - General Exam Comments Initial Comments: Visual Physical Exam Vital signs reviewed General: Well-appearing, nontoxic, no acute distress. Head: Normocephalic, atraumatic Eyes: PERRLA, EOMI ENT: Airway patent Chest: Nonlabored breathing Skin: No visual rash, normal skin tone Neuro: Alert and oriented 3 Musculoskeletal: No gross abnormalities (Carrie Moreno) Course Vital Signs 10/18/24 10/18/24 11:02 14:09 Temperature 97.3 F L Pulse Rate 65 53 L Respiratory 16 18 Rate Blood Pressure 138/86 118/79 O2 Sat by Pulse 98 97 Oximetry EKG Findings - EKG Results: EKG: interpreted by ERMD (With frequent PVCs.), sinus rhythm, normal axis, normal QRS, normal ST/T <Chirag James - Last Filed: 10/18/24 14:30> Medical Decision Making - Lab Data Result diagrams: 10/18/24 11:08 10/18/24 11:08 <Carrie Moreno - Last Filed: 10/18/24 11:59> - Lab Data Result diagrams: 10/18/24 11:08 10/18/24 11:08 <Chirag James - Last Filed: 10/18/24 14:30> - Medical Decision Making I completed the quick note portion of this chart signed Carrie Moreno PA-C (Carrie Moreno) Chest x-ray interpreted by myself shows no acute abnormality. Postop changes. EKG #2 interpreted by myself shows (sinus bradycardia with rate of 58. PVCs present. Normal axis. Normal QRS. No acute ST change. leaf stamper evaluated several times showing normal sinus rhythm with a rate around 70 with frequent PVCs. Patient was placed on boat garnisher secondary to PVCs and risk for dysrhythmia Was pt. sent in by a medical professional or institution ([facility], [facility], urgent care, hospital, or correction...) When possible be specific @ -No Did you speak to anyone other than the patient for history (EMS, parent, family, police, friend...)? What history was obtained from this source @ -No Did you review nursing and triage notes (agree or disagree)? Why? @ -I reviewed and agree with nursing and triage notes Were old charts reviewed (outside hosp., previous admission, EMS record, old EKG, old radiological studies, urgent care reports/EKG's, correction records)? Report findings @ -No old charts were reviewed Differential Diagnosis (chest pain, altered mental status, abdominal pain women, abdominal pain men, vaginal bleeding, weakness, fever, dyspnea, syncope, headache, dizziness, GI bleed, back pain, seizure, CVA, palpatations, mental health, musculoskeletal)? @ -Differential Palpitations Ventricular arrhythmias, atrial arrhythmias, myocardial infarction, anemia, thyrotoxicosis, electrolyte imbalance, hypokalemia, pulmonary embolism, pulmonary disease, drugs, alcohol, anxiety, stress.... This is not meant to be an all-inclusive list. EKG interpreted by me (3pts min.). @ -As above X-rays interpreted by me (1pt min.). @ -Chest x-ray shows postoperative change. No acute process CT interpreted by me (1pt min.). @ -None done U/S interpreted by me (1pt. min.). @ -None done What testing was considered but not performed or refused? (CT, X-rays, U/S, labs)? Why? @ -None What meds were considered but not given or refused? Why? @ -None Did you discuss the management of the patient with other professionals (professionals i.e. , PA, [employer], lab, RT, psych nurse, social services manager, tailoring teacher, teacher, aircraft electronics technical officer, case therapist)? Give summary @ -No Was smoking cessation discussed for >3mins.? @ -No Was critical care preformed (if so, how long)? @ -No Were there social determinants of health that impacted care today? How? (Homelessness, low income, unemployed, alcoholism, drug addiction, transportation, low edu. Level, literacy, decrease access to med. care, [facility], rehab)? @ -No Was there de-escalation of care discussed even if they declined (Discuss DNR or withdrawal of care, Hospice)? DNR status @ -No What co-morbidities impacted this encounter? (DM, HTN, Smoking, COPD, CAD, Cancer, CVA, ARF, Chemo, Hep., AIDS, mental health diagnosis, sleep apnea, morbid obesity)? @ -History of previous CABG Was patient admitted / discharged? Hospital course, mention meds given and route, prescriptions, significant lab abnormalities, going to OR and other pertinent info. @ -Patient presents with palpitations. Patient has PVCs on both EKGs and on the monitor otherwise no evidence of dysrhythmia. Evaluation otherwise unremarkable. Patient updated on results and need for follow-up. Patient will be discharged with recommended follow-up primary care physician as well as cardiology. Undiagnosed new problem with uncertain prognosis? @ -No Drug Therapy requiring intensive monitoring for toxicity (Heparin, Nitro, Insulin, Cardizem)? @ -No Were any procedures done? @ -No Diagnosis/symptom? @ -PVCs Acute, or Chronic, or Acute on Chronic? @ -Acute Uncomplicated (without systemic symptoms) or Complicated (systemic symptoms)? @ -Default Side effects of treatment? @ -No Exacerbation, Progression, or Severe Exacerbation? @ -No Poses a threat to life or bodily function? How? (Chest pain, USA, HI, pneumonia, PE, COPD, DKA, ARF, appy, cholecystitis, CVA, Diverticulitis, Homicidal, Suicidal, threat to staff... and all critical care pts) @ -No (Chirag James) - Lab Data Lab Results 10/18/24 10/18/24 10/18/24 Range/Units 11:08 11:08 11:08 WBC 4.7 (3.8-10.6) k/uL RBC 5.37 (4.30-5.90) m/uL Hgb 16.8 (13.0-17.5) gm/dL Hct 49.6 (39.0-53.0) % MCV 92.4 (80.0-100.0) fL MCH 31.2 (25.0-35.0) pg MCHC 33.8 (31.0-37.0) g/dL RDW 13.0 (11.5-15.5) % Plt Count 229 (150-450) k/uL MPV 6.8 Neutrophils % 68 % Lymphocytes % 19 % Monocytes % 7 % Eosinophils % 3 % Basophils % 1 % Neutrophils # 3.2 (1.3-7.7) k/uL Lymphocytes # 0.9 L (1.0-4.8) k/uL Monocytes # 0.3 (0-1.0) k/uL Eosinophils # 0.1 (0-0.7) k/uL Basophils # 0.0 (0-0.2) k/uL PT 10.9 (10.0-12.5) sec INR 1.0 (<1.2) APTT 23.7 (22.0-30.0) sec Sodium 137 (137-145) mmol/L Potassium 4.7 (3.5-5.1) mmol/L Chloride 100 (98-107) mmol/L Carbon Dioxide 30 (22-30) mmol/L Anion Gap 7 mmol/L BUN 18 (9-20) mg/dL Creatinine 1.03 (0.66-1.25) mg/dL Est GFR (CKD-EPI)AfAm 88 (>60 ml/min/1.73 sqM) Est GFR (CKD-EPI)NonAf 76 (>60 ml/min/1.73 sqM) Glucose 133 H (74-99) mg/dL Calcium 9.6 (8.4-10.2) mg/dL Magnesium 2.1 (1.6-2.3) mg/dL Total Bilirubin 1.3 (0.2-1.3) mg/dL AST 36 (17-59) U/L ALT 27 (4-49) U/L Alkaline Phosphatase 73 (38-126) U/L Troponin I (0.000-0.034) ng/mL Total Protein 7.4 (6.3-8.2) g/dL Albumin 4.4 (3.5-5.0) g/dL TSH 1.820 (0.465-4.680) mIU/L 10/18/24 Range/Units 11:08 WBC (3.8-10.6) k/uL RBC (4.30-5.90) m/uL Hgb (13.0-17.5) gm/dL Hct (39.0-53.0) % MCV (80.0-100.0) fL MCH (25.0-35.0) pg MCHC (31.0-37.0) g/dL RDW (11.5-15.5) % Plt Count (150-450) k/uL MPV Neutrophils % % Lymphocytes % % Monocytes % % Eosinophils % % Basophils % % Neutrophils # (1.3-7.7) k/uL Lymphocytes # (1.0-4.8) k/uL Monocytes # (0-1.0) k/uL Eosinophils # (0-0.7) k/uL Basophils # (0-0.2) k/uL PT (10.0-12.5) sec INR (<1.2) APTT (22.0-30.0) sec Sodium (137-145) mmol/L Potassium (3.5-5.1) mmol/L Chloride (98-107) mmol/L Carbon Dioxide (22-30) mmol/L Anion Gap mmol/L BUN (9-20) mg/dL Creatinine (0.66-1.25) mg/dL Est GFR (CKD-EPI)AfAm (>60 ml/min/1.73 sqM) Est GFR (CKD-EPI)NonAf (>60 ml/min/1.73 sqM) Glucose (74-99) mg/dL Calcium (8.4-10.2) mg/dL Magnesium (1.6-2.3) mg/dL Total Bilirubin (0.2-1.3) mg/dL AST (17-59) U/L ALT (4-49) U/L Alkaline Phosphatase (38-126) U/L Troponin I <0.012 (0.000-0.034) ng/mL Total Protein (6.3-8.2) g/dL Albumin (3.5-5.0) g/dL TSH (0.465-4.680) mIU/L Disposition <Carrie Moreno - Last Filed: 10/18/24 11:59> Is patient prescribed a controlled substance at d/c from ED?: No Time of Disposition: 14:30 <Chirag James - Last Filed: 10/18/24 14:30> Clinical Impression: Ventricular premature beats Disposition: HOME SELF-CARE Condition: Stable Instructions (If sedation given, give patient instructions): Heart Palpitations (ED) Additional Instructions: Please do follow-up with primary care physician and your computational geneticist beginning of the week. Return for increased heart rate, chest pain or shortness of breath, worsening or changing symptoms or any other concerns. Referrals: Mark Lobato MD [Primary Care Provider] - 1-2 days Royce Duncan MD [STAFF PHYSICIAN] - 1-2 days
[2024-10-18 14:10] VITALS: RESP 18
[2024-10-18 14:47] VITALS: BP 130/80; PULSE 68
== END 2024-10-18 14:50 | disposition home or self-care (01) ==
LOC: EC 10:57
DX: I49.3 Ventricular premature depolarization (principal); Z95.1 Presence of aortocoronary bypass graft
CPT/HCPCS: 36415; 71046; 80053; 83735; 84443; 84484; 85025; 85610; 85730; 93005; 99285